=== PATIENT | female | born 1945 | race Caucasian/White ===

== ENCOUNTER → 2016-04-29 | Outpatient (CLI) | payer OTHER ==
[~2016-04-29] MED LIST: ASPEC325 PO; DLCS PR; DONE10TA12 PO; FERR-24 PO; LEVO100T PO; MVC20 PO; OXYC5TAB PO; POTA10TA PO; PRT40 PO; SNK PO; SODI1ENE16 PR; TRAZ50TA35 PO; TYL325X PO
[2016-04-29 17:21] LABS: ALT/SGPT 24 U/L (12-78); AST/SGOT 19 U/L (15-37); BLOOD UREA NITROGEN 20 mg/dl (7-18); BUN/CREATININE RATIO 16.6 (10-20); CALCIUM 9.4 mg/dl (8.5-10.1); CARBON DIOXIDE 30 mmol/L (21-32); CHLORIDE 100 mmol/L (98-107); GLUCOSE 153 mg/dl (70-99); POTASSIUM 4.2 mmol/L (3.5-5.1); SODIUM 137 mmol/L (136-145)
[2016-04-29 17:24] LABS: ALB/GLOB RATIO 1.1 (0.9-2); ALKALINE PHOSPHATASE 60 U/L (45-117); CHOLESTEROL 192 mg/dl (0-200); CHOLESTEROL/HDL RATIO 2.6; HDL CHOLESTEROL 75 mg/dl; LDL CHOLESTEROL CALCULATED 93 mg/dl; TRIGLYCERIDES 122 mg/dl (0-150); VERY LOW DENSITY LIPOPROT CALC 24 mg/dl
[2016-04-30 07:00] LABS: ESTIMATED AVERAGE GLUCOSE 174 mg/dl; HA1C FLAG Normal (Normal)
--- NOTE | 2016-05-04 09:29 | CODING QUERY MEDICAL NECESSITY ---
SUPPORTING DIAGNOSIS NEEDED A supporting diagnosis is required for the test/procedure performed on this patient in order for us to be reimbursed by the patient's insurance. Please provide a supporting diagnosis for the following test/procedure listed below next to the test name along with your signature. *If there is no additional diagnosis for this patient that would support the following test/procedure please document that below next to the test/procedure. Test(s)/Procedure(s) that require a supporting diagnosis: DOS 04/29 * Hba1c DIAGNOSIS: * Lipids DIAGNOSIS: Provider Signature: Date: Thank you Lelia Overton Health Information Management Once completed, please kindly fax back to [phone] For questions please call [phone]
== END | disposition home or self-care (01) ==
LOC: C.LABBC 15:02
PROVIDERS: ATTEND Internal Medicine
DX: R63.4 Abnormal weight loss (principal); E11.9 Type 2 diabetes mellitus without complications; E78.5 Hyperlipidemia, unspecified

== ENCOUNTER → 2017-01-20 | Outpatient (CLI) | payer OTHER ==
[2017-01-20 17:36] LABS: ALT/SGPT 25 U/L (12-78); BLOOD UREA NITROGEN 26 mg/dl (7-18); BUN/CREATININE RATIO 25.5 (10-20); CALCIUM 9.5 mg/dl (8.5-10.1); CARBON DIOXIDE 32 mmol/L (21-32); CHLORIDE 99 mmol/L (98-107); CREATININE 1.03 mg/dl (0.60-1.20); GLUCOSE 143 mg/dl (70-99); POTASSIUM 4.6 mmol/L (3.5-5.1); SODIUM 136 mmol/L (136-145)
[2017-01-20 17:47] LABS: ALB/GLOB RATIO 1.1 (0.9-2); ALKALINE PHOSPHATASE 70 U/L (45-117); AST/SGOT 25 U/L (15-37)
[2017-01-21 07:08] LABS: ESTIMATED AVERAGE GLUCOSE 157 mg/dl; HA1C FLAG Normal (Normal)
== END | disposition home or self-care (01) ==
LOC: C.LAB1850 16:32
PROVIDERS: ATTEND Internal Medicine
DX: E03.9 Hypothyroidism, unspecified (principal); E11.9 Type 2 diabetes mellitus without complications; I10 Essential (primary) hypertension

== ENCOUNTER → 2017-03-15 | Outpatient (CLI) | payer OTHER | END | disposition home or self-care (01) | LOC: C.LAB1850 15:28 | PROVIDERS: ATTEND Internal Medicine | DX: E03.9 Hypothyroidism, unspecified (principal) ==

== ENCOUNTER 2017-05-01 14:16 | Emergency (ER) | payer OTHER ==
[~2017-05-01] VITALS: Ht 167.6 cm; Wt 81.1 kg
[2017-05-01 14:20] VITALS: TEMP 37.3; Ht 167.6 cm; Wt 81.1 kg
[2017-05-01] MEDS ORDERED: CALC500C70 PO (15:12)
[2017-05-01] MEDS ORDERED: FERR-24 PO (15:12)
[2017-05-01] MEDS ORDERED: MULT-506 PO (15:12)
[2017-05-01] MEDS ORDERED: DICL1GEL12 TOP (15:12)
[2017-05-01] MEDS ORDERED: MEMA1CAP7 PO (15:12)
[2017-05-01] MEDS ORDERED: CYAN100020 PO (15:12)
[2017-05-01] MEDS ORDERED: METF500T5 PO (15:12)
[2017-05-01] MEDS ORDERED: ESOM20CA PO (15:12)
[2017-05-01] MEDS ORDERED: LEVO125T5 PO (15:12)
[2017-05-01] MEDS ORDERED: SERT50TA PO (15:12)
--- NOTE | 2017-05-01 15:18 | EMERGENCY ROOM VISIT NOTE ---
History Report prepared by Cherise: Martha Mcneal Under the Supervision of: Dr. Lexi Davila M.D. First contact with patient: 14:28 Chief Complaint: DIZZY Stated Complaint: DIZZY, LIGHT HEADED, BLEEDING ISSUES Nursing Triage Summary: pt to the ED with c/o feeling dizzy and c/o black stool pt takes iron and has a hx of bleeding from a unknown place and has had to have transfusions in the past. pt does not take blood thinners and no c/o pain History of Present Illness The patient is a 71 year old female who presents to the Emergency Room with complaints of intermittent dizziness starting 2 days ago. The patient's daughter states that she is unknown if this is when it actually started since she has Alzheimer. She reports that the patient has dark stools that she saw when she forgot to flush. The daughter notes that she has a history of GI bleeds and had to have 3 pints of blood transfusions about 2 years ago. The patient denies diarrhea, chest pain, vomiting, loss of appetite, use of blood thinners, and recent falls. She notes that her mother takes a heart medication and 60 mg of iron twice daily. Source of History: patient, family Onset: 2 days ago Position: other (global) Quality: other (dizzy) Timing: intermittent Associated Symptoms: No chest pain, No vomiting, No diarrhea Note: The patient complains of dark stools. The patient denies loss of appetite. Review of Systems See HPI for pertinent positives & negatives. A total of 10 systems reviewed and were otherwise negative. Past Medical & Surgical Medical Problems: (1) Alzheimer disease (2) Closed fracture of trochanteric section of femur (3) Finger fracture (4) Hip fracture Family History No pertinent family history Social History Smoking Status: Former Smoker Alcohol Use: none Marital Status: Housing Status: lives with family Occupation Status: retired Current/Historical Medications Scheduled Calcium/Vitamin D (Os-Bryan 500 Plus D), 1 TAB PO BID Cyanocobalamin (Vitamin B12), 1,000 MCG PO DAILY Diclofenac Sodium (Topical) (Voltaren 1% Top Gel), 2 GM TOP QID Donepezil Hydrochloride (Aricept), 10 MG PO DAILY Esomeprazole Magnesium (Nexium), 20 MG PO QAM Ferrous Sulfate (Fe Tabs), 325 MG PO BIDM Levothyroxine Sodium (Levothyroxine Sodium), 125 MCG PO QAM Lovastatin (Lovastatin), 20 MG PO DAILY Memantine Hcl (Namenda Xr), 28 MG PO DAILY Metformin Hcl Er (Glucophage Er), 500 MG PO DAILY Multivitamin (Multivitamin), 1 TAB PO DAILY Sertraline (Zoloft), 50 MG PO DAILY Trazodone Hcl (Trazodone), 50 MG PO HS Allergies Coded Allergies: Lisinopril (Verified Allergy, Intermediate, COUGH, 05/01/17) Atorvastatin (Verified Allergy, Unknown, MED LIST, 05/01/17) Simvastatin (Verified Allergy, Unknown, MED LIST, 05/01/17) Physical Exam Vital Signs Date Time Temp Pulse Resp B/P (MAP) Pulse Ox O2 Delivery O2 Flow Rate FiO2 05/01/17 17:57 53 17 174/95 96 Room Air 05/01/17 15:51 52 166/75 69 164/90 61 171/80 05/01/17 14:36 55 05/01/17 14:20 37.3 65 20 153/82 96 Room Air Physical Exam Vital signs reviewed. General: Well-appearing, elderly appearing, in no significant distress. HEENT: No scleral icterus, PERRLA, neck supple. Atraumatic. Cardiovascular: Regular rate and rhythm, no extra sounds. Pulmonary: Clear to auscultation bilaterally, normal work of breathing. Abdomen: Soft, nontender, nondistended, positive bowel sounds. Rectal: Guaiac negative. Normal external rectal mucosa. Musculoskeletal: Atraumatic, no peripheral edema. Neurologic: Patient awake alert and oriented x 3, full strength in all 4 extremities. Cranial nerves 2 through 12 grossly intact. Pleasantly confused. Skin: Warm, dry, no rash Medical Decision & Procedures ER Provider Diagnostic Interpretation: Radiology results as stated below per my review and radiologist interpretation: CHEST ONE VIEW PORTABLE HISTORY: dizzy, weak COMPARISON: Chest 04/06/2015. FINDINGS: The lungs are clear. Cardiac silhouette is normal in size. No pleural effusions. No pneumothorax. IMPRESSION: No acute process. Electronically signed by: Anoop Merlos M.D. 05/01/2017 3:34 PM Dictated Date/Time: 05/01/2017 3:33 PM Laboratory Results 05/01/17 16:32 Red Blood Count 4.77, Mean Corpuscular Volume 92.0, Mean Corpuscular Hemoglobin 31.4, Mean Corpuscular Hemoglobin Concent 34.2, Mean Platelet Volume 9.6, Neutrophils (%) (Auto) 63.1, Lymphocytes (%) (Auto) 28.0, Monocytes (%) (Auto) 6.2, Eosinophils (%) (Auto) 1.8, Basophils (%) (Auto) 0.7, Neutrophils # (Auto) 3.59, Lymphocytes # (Auto) 1.59, Monocytes # (Auto) 0.35, Eosinophils # (Auto) 0.10, Basophils # (Auto) 0.04 05/01/17 16:32 05/01/17 17:21 Test 05/01/17 00:00 05/01/17 16:32 05/01/17 17:21 Urine Color YELLOW Urine Appearance CLOUDY (CLEAR) Urine pH 7.5 (4.5-7.5) Urine Specific [place] 1.020 (1.000-1.030) Urine Protein NEG (NEG) Urine Glucose (UA) TRACE (NEG) Urine Ketones NEG (NEG) Urine Occult Blood NEG (NEG) Urine Nitrite NEG (NEG) Urine Bilirubin NEG (NEG) Urine Urobilinogen NEG (NEG) Urine Leukocyte Esterase MODERATE (NEG) Urine WBC (Auto) 5-10 /hpf (0-5) Urine RBC (Auto) 0-4 /hpf (0-4) Urine Hyaline Casts (Auto) 0 /lpf (0-5) Urine Epithelial Cells (Auto) >30 /lpf (0-5) Urine Bacteria (Auto) NEG (NEG) White Blood Count 5.68 K/uL (4.8-10.8) Red Blood Count 4.77 M/uL (4.2-5.4) Hemoglobin 15.0 g/dL (12.0-16.0) Hematocrit 43.9 % (37-47) Mean Corpuscular Volume 92.0 fL (80-100) Mean Corpuscular Hemoglobin 31.4 pg (25-34) Mean Corpuscular Hemoglobin Concent 34.2 g/dl (32-36) Platelet Count 222 K/uL (130-400) Mean Platelet Volume 9.6 fL (7.4-10.4) Neutrophils (%) (Auto) 63.1 % Lymphocytes (%) (Auto) 28.0 % Monocytes (%) (Auto) 6.2 % Eosinophils (%) (Auto) 1.8 % Basophils (%) (Auto) 0.7 % Neutrophils # (Auto) 3.59 K/uL (1.4-6.5) Lymphocytes # (Auto) 1.59 K/uL (1.2-3.4) Monocytes # (Auto) 0.35 K/uL (0.11-0.59) Eosinophils # (Auto) 0.10 K/uL (0-0.5) Basophils # (Auto) 0.04 K/uL (0-0.2) RDW Standard Deviation 44.5 fL (36.4-46.3) RDW Coefficient of Variation 13.3 % (11.5-14.5) Immature Granulocyte % (Auto) 0.2 % Immature Granulocyte # (Auto) 0.01 K/uL (0.00-0.02) Anion Gap 7.0 mmol/L (3-11) Est Creatinine Clear Calc Drug Dose 46.0 ml/min Estimated GFR () 53.5 Estimated GFR (Non- 46.2 BUN/Creatinine Ratio 14.4 (10-20) Calcium Level 9.6 mg/dl (8.5-10.1) Total Bilirubin 0.4 mg/dl (0.2-1) Alanine Aminotransferase (ALT/SGPT) 23 U/L (12-78) Alkaline Phosphatase 59 U/L (45-117) Total Protein 7.8 gm/dl (6.4-8.2) Albumin 3.7 gm/dl (3.4-5.0) Magnesium Level 2.1 mg/dl (1.8-2.4) Direct Bilirubin < 0.1 mg/dl (0-0.2) Aspartate Amino Transf (AST/SGOT) 24 U/L (15-37) Laboratory results per my review. Medications Administered Medications (Trade) Dose Ordered Sig/Hilary Route Start Time Stop Time Status Last Admin Dose Admin Haloperidol Lactate (Haldol Inj) 2.5 mg NOW STAT IV 05/01/17 17:10 05/01/17 17:11 DC 05/01/17 17:19 2.5 MG ECG Indication: other (dizziness) Rate (beats per minute): 51 Rhythm: sinus bradycardia Findings: nonspecific-ST abn (Anterior), no ectopy Comparison ECG Date: 04/19/2015 Change: no significant change Change: I interpreted the patient's EKG. ED Course 1501: Past medical records reviewed. The patient was evaluated in room B7. A complete history and physical examination was performed. 1710: Ordered Haldol Inj 2.5 mg IV. 1759: Upon reevaluation, the patient appeared to have improvement of her symptoms. I discussed findings with her and her daughter. They verbalized agreement of the treatment plan. The patient was discharged home. Medical Decision DDx: Etiologies such as benign positional vertigo, dehydration, hypovolemia, anemia, tumor, infection, hypoglycemia, electrolyte abnormalities, cardiac sources, intracerebral event, toxicologic, neurologic, as well as others were entertained. This pt was evaluated and appeared to be in no significant distress. Patient is guaiac negative from below. Laboratory work reveals a stable H&H. Vital signs have remained stable. EKG reveals sinus bradycardia with nonspecific ST changes this is unchanged from prior. The patient did become somewhat confused and agitated. She was given 2.5 mg of IV Haldol. Patient did discontinue her own IV line. I suspect the black stools are coming from the iron supplementation. At this time the patient is not orthostatic and her laboratory work is unrevealing. There is no evidence of UTI. Patient was discharged to the care of her daughter and will be evaluated by her physician this week in follow-up. They will return to the ER for worsening of symptoms or any medical concerns. Medication Reconcilliation Current Medication List: was personally reviewed by me Blood Pressure Screening Patient's blood pressure: Elevated blood pressure Blood pressure disposition: Elevated BP felt to be situational Impression Primary Impression: Dizziness Scribe Attestation The scribe's documentation has been prepared under my direction and personally reviewed by me in its entirety. I confirm that the note above accurately reflects all work, treatment, procedures, and medical decision making performed by me. Departure Information Dispostion Home / Self-Care Referrals No Doctor, Assigned (PCP) Forms HOME CARE DOCUMENTATION FORM, IMPORTANT VISIT INFORMATION Patient Instructions My [facility] Additional Instructions Diagnosis: Dizziness Please drink plenty of clear fluids. Continue your medications as prescribed. Follow-up with your physician this week for reevaluation. Return to the ER for worsening of symptoms or any medical concerns.
--- NOTE | 2017-05-01 15:36 | DIAGNOSTIC IMAGING REPORT ---
CHEST ONE VIEW PORTABLE HISTORY: dizzy, weak COMPARISON: Chest 04/06/2015. FINDINGS: The lungs are clear. Cardiac silhouette is normal in size. No pleural effusions. No pneumothorax. IMPRESSION: No acute process. Electronically signed by: Anoop Merlos M.D. 05/01/2017 3:34 PM Dictated Date/Time: 05/01/2017 3:33 PM
[2017-05-01 16:48] LABS: BASO % 0.7 %; BASO ABS # 0.04 K/uL (0-0.2); EOS % 1.8 %; HEMATOCRIT 43.9 % (37-47); IG# 0.01 K/uL (0.00-0.02); LYMPH ABS # 1.59 K/uL (1.2-3.4); MEAN CORPUSCULAR HEMOGLOBIN 31.4 pg (25-34); MEAN CORPUSCULAR HGB CONC 34.2 g/dl (32-36); MEAN PLATELET VOLUME 9.6 fL (7.4-10.4); MONO % 6.2 %; MONO ABS # 0.35 K/uL (0.11-0.59); NEUT % 63.1 %; NEUT ABS # 3.59 K/uL (1.4-6.5); PLATELET COUNT 222 K/uL (130-400); RED CELL DISTRIBUTION WIDTH CV 13.3 % (11.5-14.5); RED CELL DISTRIBUTION WIDTH SD 44.5 fL (36.4-46.3); WHITE BLOOD COUNT 5.68 K/uL (4.8-10.8)
[2017-05-01] MEDS ORDERED: HALOPERIDOL LACTATE 5 MG/ML 1 ML VIAL IV STA (17:10)
[2017-05-01 17:13] LABS: ALBUMIN 3.7 gm/dl (3.4-5.0); CALCIUM 9.6 mg/dl (8.5-10.1); CREATININE 1.17 mg/dl (0.60-1.20); TOTAL PROTEIN 7.8 gm/dl (6.4-8.2)
[2017-05-01 17:57] VITALS: BP 174/95; PULSE 53; O2SAT 96
[2017-05-01 18:06] LABS: POTASSIUM 3.7 mmol/L (3.5-5.1)
[2017-05-01 18:10] LABS: AST/SGOT 24 U/L (15-37)
== END 2017-05-01 18:17 | disposition home or self-care (01) ==
LOC: C.EDB 14:17
DX: R42 Dizziness and giddiness (principal); G30.9 Alzheimer's disease, unspecified; F02.80 Dementia in other diseases classified elsewhere, unspecified severity, without behavioral disturbance, psychotic disturbance, mood disturbance, and anxiety; Z87.891 Personal history of nicotine dependence; Z79.84 Long term (current) use of oral hypoglycemic drugs; Z79.899 Other long term (current) drug therapy

== ENCOUNTER 2019-01-27 17:13 | Inpatient (IN) ==
[2019-01-27] MEDS ORDERED: SODIUM CHLORIDE 0.9% 500 ML IV SCH (17:45)
--- NOTE | 2019-01-27 17:49 | XRay Report ---
XR chest 1V portable CLINICAL HISTORY: Weakness. Fall. COMPARISON STUDY: Chest radiograph May 01, 2017. FINDINGS: There is no pneumothorax or pleural effusion. No airspace opacities are present. Patient is mildly rotated. There is a suspected acute mildly displaced right first rib fracture. There is a pos sible nondisplaced posterior left first rib fracture. Note is made of an age indeterminate nondisplac ed fracture of the anterior right fourth rib. Cardiac size is normal. Mediastinal contours are normal . There is no evidence for pulmonary edema. IMPRESSION: 1. No pneumothorax. 2. Suspected acute mildly displaced right first rib fracture. Age indeterminate anterior right fourth rib fracture. Equivocal nondisplaced posterior left first rib fracture. Electronically signed by: Sheldon Stuart M.D. 01/27/2019 5:48 PM
--- NOTE | 2019-01-27 17:54 | Emergency Department Note ---
Entered by Jessica Stahl acting as a scribe for Saeed Pena DO History of Present Illness General Chief complaint: Fall Time Seen by Provider: 01/27/19 17:24 Source: family History of Present Illness Provider complaint: fall Onset (ago): week(s) 1 Location: right Relieved By: + none Exacerbated By: + none Associated symptoms: + loss of appetite and + other (+left arm, +left shoulder, +back pain) The patient is a 73 year old female who presents to the Emergency Room with complaints of fall that occurred last week. The patients family states that she feel out of bed last week and fell on her right side. They report that she was not evaluated then. They state that the patient has been recently complaining of left arm, left shoulder, and back pain. They state that they are unsure what happened. They mention that the patient has had a loss of appetite recently and has not been drinking a lot. They state that the patient has a history of dementia and osteoarthritis. Home Medications Home Medications Medication Instructions Recorded Confirmed Type acetaminophen 500 mg tablet 1,000 mg PO DAILY@1000,1500 tab 11/28/18 01/27/19 History levothyroxine 125 mcg tablet 125 mcg PO DAILY@1000 #30 tab 11/28/18 01/27/19 History calcium carbonate 600 mg (1,500 1 tab PO DAILY@1000 12/06/18 01/27/19 History mg)-vitamin D3 400 unit tablet cyanocobalamin (vit B-12) 1,000 1,000 mcg PO DAILY@1000 12/06/18 01/27/19 History mcg tablet ferrous sulfate 325 mg (65 mg 325 mg PO DAILY@1000 tab 12/06/18 01/27/19 History iron) tablet multivitamin tablet 1 tab PO DAILY@1000 12/06/18 01/27/19 History donepezil 10 mg PO DAILY@1000 01/27/19 01/27/19 History duloxetine 20 mg PO DAILY@1000 01/27/19 01/27/19 History esomeprazole magnesium 20 mg PO DAILY@1000 01/27/19 01/27/19 History lovastatin 20 mg PO DAILY@1000 01/27/19 01/27/19 History memantine 28 mg PO DAILY@1000 01/27/19 01/27/19 History metformin 500 mg PO DAILY@1000 01/27/19 01/27/19 History Allergies Allergy/AdvReac Type Severity Reaction Status Date / Time lisinopril Allergy Intermediate COUGH Verified 01/27/19 18:14 atorvastatin Allergy Unknown MED LIST Verified 01/27/19 18:14 simvastatin Allergy Unknown MED LIST Verified 01/27/19 18:14 Penicillins AdvReac Mild Verified 01/27/19 18:14 Past Med/Surg History Medical History Dementia (Chronic) Osteoarthritis (Chronic) Family History Daughter Depression Social History Feels Safe at Home: Yes Smoking Status: Former smoker Review of Systems See HPI for pertinent positives & negatives. and A total of 10 systems reviewed and were otherwise negative Physical Exam Vital Signs Vital Signs - 24 hr 01/27/19 17:17 01/27/19 17:22 01/27/19 17:54 Temperature 36.8 C Temperature Source Oral Sepsis Recent Fever Within 48 Hours No Sepsis Action Taken by Nursing No Action Required Pulse Rate 94 H 95 H 94 H Pulse Rate [Right Finger] Pulse Rate from SpO2 Sensor 96 H 93 H Respiratory Rate 20 20 20 Respiratory Effort / Characteristics Non-Labored Spontaneous Respiratory Depth Normal Respiratory Pattern Regular Blood Pressure 175/98 H 175/98 H Blood Pressure [Right Arm] Blood Pressure Mean 123 123 Blood Pressure Mean [Right Arm] Pulse Oximetry 95 95 96 Oxygen Delivery Method Room Air 01/27/19 18:00 01/27/19 18:30 01/27/19 18:37 Temperature Temperature Source Sepsis Recent Fever Within 48 Hours Sepsis Action Taken by Nursing Pulse Rate 98 H 88 86 Pulse Rate [Right Finger] Pulse Rate from SpO2 Sensor 84 Respiratory Rate 18 17 19 Respiratory Effort / Characteristics Respiratory Depth Respiratory Pattern Blood Pressure 182/90 H Blood Pressure [Right Arm] Blood Pressure Mean 120 Blood Pressure Mean [Right Arm] Pulse Oximetry 97 Oxygen Delivery Method 01/27/19 19:24 01/27/19 19:25 01/27/19 19:30 Temperature Temperature Source Sepsis Recent Fever Within 48 Hours Sepsis Action Taken by Nursing Pulse Rate 82 75 70 Pulse Rate [Right Finger] Pulse Rate from SpO2 Sensor 78 73 Respiratory Rate 13 20 19 Respiratory Effort / Characteristics Respiratory Depth Respiratory Pattern Blood Pressure 180/89 H 184/95 H Blood Pressure [Right Arm] Blood Pressure Mean 119 124 Blood Pressure Mean [Right Arm] Pulse Oximetry 97 98 Oxygen Delivery Method Room Air 01/27/19 19:45 01/27/19 20:00 01/27/19 20:01 Temperature Temperature Source Sepsis Recent Fever Within 48 Hours Sepsis Action Taken by Nursing Pulse Rate 69 80 Pulse Rate [Right Finger] 70 Pulse Rate from SpO2 Sensor 71 79 Respiratory Rate 22 18 19 Respiratory Effort / Characteristics Non-Labored Spontaneous Respiratory Depth Normal Respiratory Pattern Regular Blood Pressure 120/101 H Blood Pressure [Right Arm] 184/95 H Blood Pressure Mean 107 Blood Pressure Mean [Right Arm] 124 Pulse Oximetry 98 97 95 Oxygen Delivery Method Room Air 01/27/19 20:02 Temperature Temperature Source Sepsis Recent Fever Within 48 Hours Sepsis Action Taken by Nursing Pulse Rate 75 Pulse Rate [Right Finger] Pulse Rate from SpO2 Sensor 76 Respiratory Rate 16 Respiratory Effort / Characteristics Respiratory Depth Respiratory Pattern Blood Pressure Blood Pressure [Right Arm] Blood Pressure Mean Blood Pressure Mean [Right Arm] Pulse Oximetry 97 Oxygen Delivery Method CONSTITUTIONAL/VITAL SIGNS: Reviewed / noted above. GENERAL: Non-toxic in appearance. INTEGUMENTARY: Warm, dry, and [place]. HEAD: Normocephalic. EYES: without scleral icterus or trauma. ENT/OROPHARYNX: clear and moist. LYMPHADENOPATHY/NECK: Is supple without lymphadenopathy or meningismus. RESPIRATORY: Lungs clear and equal. CARDIOVASCULAR: Regular rate and rhythm. GI/ABDOMEN: Soft and nontender. No organomegaly or pulsatile mass. No rebound or guarding. Normal bowel sounds. EXTREMITIES: Warm and well perfused. BACK: No CVA tenderness. Tenderness to palpation of left posterior shoulder/spine area. NEUROLOGICAL: Intact without focal deficits. PSYCHIATRIC: normal affect. MUSCULOSKELETAL: Normally developed with good muscle tone. Course 1724: The patient was evaluated in room A12B, and a complete history and physical examination were performed. 2014: I reevaluated the patient and updated her family on her results. The family states that they do not feel that it will safe if the patient is discharged home. 2054: I reviewed the patient's case with Dr. Major- [facility] Hospitalist. She will evaluate the patient for further management. Administered Medications Discontinued Medications Sodium Chloride (Nss) 500 mls @ 999 mls/hr IV .Q31M VLADIMIR Stop: 01/27/19 18:15 Last Infusion: 01/27/19 19:05 Dose: 0 mls/hr Documented by: [id number] Admin: 01/27/19 18:31 Dose: 999 mls/hr Documented by: [id number] Medical Decision Making Differential Diagnosis Differential diagnosis: Etiologies such as fracture, dislocation, intra- abdominal, pneumothorax, intrathoracic , intracranial, neurologic, as well as other traumatic pathologies were entertained. Medical Records Attestation: I reviewed the patient's medical records. Home Medications Current Medication List: was personally reviewed by me Laboratory Data Attestation: I reviewed the patient's lab results. Result diagrams: 01/27/19 17:55 01/27/19 17:55 Lab Results 01/27/19 01/27/19 Range/Units 17:55 17:55 WBC 8.72 (4.8-10.8) K/uL RBC 5.05 (4.2-5.4) M/uL Hgb 16.0 (12.0-16.0) g/dL Hct 47.4 H (37-47) % MCV 93.9 (80-100) fL MCH 31.7 (25-34) pg MCHC 33.8 (32-36) g/dL RDW Std Deviation 44.7 (36.4-46.3) fL RDW Coeff of Jolanta 13.1 (11.5-14.5) % Plt Count 364 (130-400) K/uL MPV 10.2 (7.4-10.4) fL Immature Gran % (Auto) 0.3 % Neut % (Auto) 69.1 % Lymph % (Auto) 23.1 % [place] % (Auto) 6.3 % Eos % (Auto) 0.7 % Baso % (Auto) 0.5 % Immature Gran # (Auto) 0.03 H (0.00-0.02) K/uL Neut # (Auto) 6.03 (1.4-6.5) K/uL Lymph # (Auto) 2.01 (1.2-3.4) K/uL [place] # (Auto) 0.55 (0.11-0.59) K/uL Eos # (Auto) 0.06 (0-0.5) K/uL Baso # (Auto) 0.04 (0-0.2) K/uL Sodium 138 (136-145) mmol/L Potassium 3.7 (3.5-5.1) mmol/L Chloride 103 (98-107) mmol/L Carbon Dioxide 24 (21-32) mmol/L Anion Gap 11.0 (3-11) BUN 21 H (7-18) mg/dl Creatinine 0.88 (0.6-1.2) mg/dl Est Cr Clr Drug Dosing 51.7 ml/min Est GFR ( Amer) 74.5 Est GFR (Non-Af Amer) 64.3 BUN/Creatinine Ratio 23.8 H (10-20) Glucose 200 H (70-99) mg/dl Calcium 10.3 H (8.5-10.1) mg/dl Imaging Data Radiologist's Impression: Radiology results as stated below per my review and the radiologist's interpretation: XR chest 1V portable CLINICAL HISTORY: Weakness. Fall. COMPARISON STUDY: Chest radiograph May 01, 2017. FINDINGS: There is no pneumothorax or pleural effusion. No airspace opacities are present. Patient is mildly rotated. There is a suspected acute mildly displaced right first rib fracture. There is a possible nondisplaced posterior left first rib fracture. Note is made of an age indeterminate nondisplaced fracture of the anterior right fourth rib. Cardiac size is normal. Mediastinal contours are normal. There is no evidence for pulmonary edema. IMPRESSION: 1. No pneumothorax. 2. Suspected acute mildly displaced right first rib fracture. Age indeterminate anterior right fourth rib fracture. Equivocal nondisplaced posterior left first rib fracture. Electronically signed by: Sheldon Stuart M.D. 01/27/2019 5:[address] OF THE CERVICAL SPINE WITHOUT CONTRAST CLINICAL HISTORY: Pain after fall. COMPARISON STUDY: No previous studies for comparison. TECHNIQUE: Helical axial images of the cervical spine were obtained without IV contrast. Sagittal and coronal reconstructions were viewed. Automated exposure control was utilized for the study. A dose lowering technique was utilized adhering to the principles of ALARA. FINDINGS: There is craniocervical junction is intact. Note is made of an acute minimally displaced fracture of the left superior articulating facet of C7. There is no evidence for facet dislocation. Note is made of an acute nondisplaced posterior left first rib fracture which is comminuted. There is an acute mildly displaced posterior right first rib fracture. No pneumothorax is shown within the lung apices. There is mild multilevel degenerative disc disease and facet arthrosis within the cervical spine. Central canal and neural foramen are suboptimally assessed. Normal thoracic spine fractures are better depicted on the CT of the thoracic spine. IMPRESSION: 1. Acute minimally displaced fracture of the left superior articulating facet of C7. 2. Acute mildly displaced fracture of the posterior right first rib. Acute nondisplaced comminuted fracture the posterior left second rib. No pneumothorax within the lung apices. Electronically signed by: Sheldon Stuart M.D. 01/27/2019 7:[address] OF THE LUMBAR SPINE CLINICAL HISTORY: low back pain after fall COMPARISON STUDY: Lumbar spine MRI September 16, 2010. TECHNIQUE: Helical axial images of the lumbar spine were obtained. Sagittal and coronal reconstructions were viewed. Automated exposure control was uti lized for the study. A dose lowering technique was utilized adhering to the principles of ALARA. FINDINGS: For purposes of numbering on this exam, the L5-S1 disc space is assigned to axial image 295 of 268. An old L3 compression fracture is noted. There is a moderate L1 compression fracture with 60% loss of vertebral body height centrally. There is no retropulsion. There is mild prevertebral inf iltration. Note is made of a mild to moderate compression fracture of L4 with 30% loss of vertebral body height. This is age indeterminate. Central canal and neural foramen are suboptimally assessed by CT. There is moderate multilevel degenerative disc disease and facet arthrosis. The sacroiliac joints are intact. IMPRESSION: 1. Moderate L1 compression fracture which is likely subacute to acute. 2. Age indeterminate L4 compression fracture with 30% loss of vertebral body height. 3. Old L3 compression fracture. Electronically signed by: Sheldon Stuart M.D. 01/27/2019 7:[address] OF THE THORACIC SPINE CLINICAL HISTORY: Upper back pain after fall. COMPARISON STUDY: Chest CT July 30, 2014. TECHNIQUE: Helical axial images of the thoracic spine were obtained. Sagittal and coronal reconstructions were viewed. Automated exposure control was utilized for the study. A dose lowering technique was utilized adhering to the principles of ALARA. FINDINGS: Note is made of an acute nondisplaced comminuted fracture of the posterior left first rib. There is an acute mildly displaced posterior right first rib fracture. There is mild loss of height of the superior endplates of T1, T2 and T3 as well as T5. There is slight loss of height of the inferior endplate of T12. There is a moderate L1 compression fracture. There is mild pa ravertebral infiltration at this level. No pneumothorax is shown within visualized portions of the chest. A calcified left lower lobe granuloma is noted. There are calcified granulomas within the spleen and liver. Dense anterior osteophytosis of the thoracic spine is noted. IMPRESSION: 1. Mild compression fractures of T1, T2, T3, T5 and T12 which are age- indeterminate but likely acute to subacute. No retropulsion at these levels. Moderate L1 compression fracture which is likely acute to subacute as well. 2. Acute mildly displaced posterior right first rib fracture. Acute nondisplaced posterior left second rib fracture. Electronically signed by: Sheldon Stuart M.D. 01/27/2019 7:24 PM ECG Data Attestation: I personally reviewed and interpreted this ECG as follows: Indication: weakness Rate (beats per minute): 82 Rhythm: normal sinus Findings: no ST elevation and no ectopy Blood Pressure Blood Pressure Findings: Elevated blood pressure Blood Pressure Disposition: further management by hospitalist JOHNNY Guidry This is a 73-year-old female who presents to the ED with a chief complaint of left shoulder pain and decreased p.o. intake. The patient has been complaining of left shoulder pain since a fall a week ago. The family reports that she fell onto her right side but she is complaining of pain in the right posterior shoulder area. She also has had decreased p.o. intake for a couple of days. She has been drinking a little bit of fluids and eating very little. The patient has some dementia and therefore is difficult historian. She does report the pain in the left posterior shoulder in the area between the scapula and thoracic spine. This area is tender to palpation. She has full range of motion of her left upper extremity. The family also reports the patient has been complaining of low back pain. They were worried about this is related to her fall as well. She has not had any nausea or vomiting. No fevers or recent illness. Blood pressure is noted to be elevated. Her physical exam reveals the tenderness in the posterior left shoulder region in the area of the rhomboids muscle. No other areas of trauma. She does not appear to be in any distress and other than hard of hearing, tries to answer questions appropriately. Imaging studies of the CT scan of the cervical, thoracic and lumbar spine reveals an acute mildly displaced fracture of the left superior articulating facet of C7. There is also a moderate compression fracture of the L1 vertebrae that appears subacute. Questionable L4 fracture. There is also mild filipe tony fractures of T1, 2, 3, 5 and 12. There is also a right first rib fracture and a left second rib fracture. A twelve-lead EKG shows a normal sinus rhythm at a rate of 82. Chemistry panel was unremarkable. The BUN was 21. Glucose is 200. The patient and family was told the results. None of the issues here are surgical. I suggested treating with Tylenol. I also recommended using Ensure o r boost to help with her poor appetite. The family is concerned about the patient's ability to do well at home as she lives alone. I spoke with the hospitalist, who will see the patient for further evaluation and care. Case management spoke to the family and feel the patient might be adequate for a jail rehab placement. Impression & Plan Compression fracture of first lumbar vertebra, Compression fracture of thoracic vertebra, Closed rib fracture, Acute dehydration, Anorexia Discharge Plan Visit Data Chief Complaint: Fall ED Provider: Saeed Pena Discharge Problem: Compression fracture of first lumbar vertebra, Compression fracture of thoracic vertebra, Closed rib fracture, Acute dehydration, Anorexia Patient Disposition: Being Evaluated by Hospitalist Forms Stand Alone Forms: My [facility] [employer] Prescriptions Prescriptions: No Action levothyroxine 125 mcg tablet 125 mcg PO DAILY@1000 Qty: 30 RF: 0 acetaminophen 500 mg tablet 1,000 mg PO DAILY@1000,1500 RF: 0 calcium carbonate-vitamin D3 600 mg(1,500mg) -400 unit tablet 1 tab PO DAILY@1000 RF: 0 ferrous sulfate 325 mg (65 mg iron) tablet 325 mg PO DAILY@1000 RF: 0 multivitamin tablet 1 tab PO DAILY@1000 RF: 0 cyanocobalamin (vitamin B-12) 1,000 mcg tablet 1,000 mcg PO DAILY@1000 RF: 0 metformin 500 mg tablet 500 mg PO DAILY@1000 RF: 0 donepezil 10 mg tablet 10 mg PO DAILY@1000 RF: 0 lovastatin 20 mg tablet 20 mg PO DAILY@1000 RF: 0 esomeprazole magnesium 20 mg capsule,delayed release(DR/EC) 20 mg PO DAILY@1000 RF: 0 duloxetine 20 mg capsule,delayed release(DR/EC) 20 mg PO DAILY@1000 RF: 0 memantine 28 mg capsule,sprinkle,ER 24hr 28 mg PO DAILY@1000 RF: 0 Referrals Referrals: Jonathan Metzger MD [Primary Care Provider] - Discharge Problem: Compression fracture of first lumbar vertebra Qualifiers: Encounter type: initial encounter Qualified Code(s): S32.010A - Wedge compression fracture of first lumbar vertebra, initial encounter for closed fracture Compression fracture of thoracic vertebra Qualifiers: Encounter type: initial encounter Thoracic vertebra fracture level: unspecified thoracic vertebra Qualified Code(s): S22.000A - Wedge compression fracture of unspecified thoracic vertebra, initial encounter for closed fracture Closed rib fracture Qualifiers: Encounter type: initial encounter Rib fracture type: multiple ribs Laterality: bilateral Qualified Code(s): S22.43XA - Multiple fractures of ribs, bilateral, initial encounter for closed fracture The scribe's documentation has been prepared under my direction and personally reviewed by me in its entirety. I confirm that the note above accurately reflects all work, treatment, procedures, and medical decision making performed by me.
[2019-01-27 18:12] LABS: Basophils # (auto) 0.04 K/uL (0-0.2); Basophils % (auto) 0.5 %; Eosinophils # (auto) 0.06 K/uL (0-0.5); Eosinophils % (auto) 0.7 %; Hematocrit (blood only) 47.4 % (37-47); Immature Granulocytes # (auto) 0.03 K/uL (0.00-0.02); Immature Granulocytes % (auto) 0.3 %; Lymphocytes # (auto) 2.01 K/uL (1.2-3.4); Lymphocytes % (auto) 23.1 %; Mean Corpuscular Hemoglobin 31.7 pg (25-34); Mean Corpuscular Hgb Conc 33.8 g/dL (32-36); Mean Corpuscular Volume 93.9 fL (80-100); Mean Platelet Volume 10.2 fL (7.4-10.4); Monocytes # (auto) 0.55 K/uL (0.11-0.59); Monocytes % (auto) 6.3 %; Neutrophils # (auto) 6.03 K/uL (1.4-6.5); Neutrophils % (auto) 69.1 %; Platelet Count 364 K/uL (130-400); RDW Coefficient of Variation 13.1 % (11.5-14.5); RDW Standard Deviation 44.7 fL (36.4-46.3); Red Blood Count 5.05 M/uL (4.2-5.4); White Blood Count 8.72 K/uL (4.8-10.8)
[2019-01-27 18:35] LABS: BUN Creatinine Ratio 23.8 (10-20); Calcium 10.3 mg/dl (8.5-10.1); Creatinine Clr Calc Pharmacy 51.7 ml/min; Est GFR (African American) 74.5; Est GFR (Non-African American) 64.3; Potassium 3.7 mmol/L (3.5-5.1)
--- NOTE | 2019-01-27 19:17 | CT Scan Report ---
CT OF THE CERVICAL SPINE WITHOUT CONTRAST CLINICAL HISTORY: Pain after fall. COMPARISON STUDY: No previous studies for comparison. TECHNIQUE: Helical axial images of the cervical spine were obtained without IV contrast. Sagittal a nd coronal reconstructions were viewed. Automated exposure control was utilized for the study. A do se lowering technique was utilized adhering to the principles of ALARA. FINDINGS: There is craniocervical junction is intact. Note is made of an acute minimally displaced fr acture of the left superior articulating facet of C7. There is no evidence for facet dislocation. Not e is made of an acute nondisplaced posterior left first rib fracture which is comminuted. There is an acute mildly displaced posterior right first rib fracture. No pneumothorax is shown within the lung apices. There is mild multilevel degenerative disc disease and facet arthrosis within the cervical sp ine. Central canal and neural foramen are suboptimally assessed. Normal thoracic spine fractures are better depicted on the CT of the thoracic spine. IMPRESSION: 1. Acute minimally displaced fracture of the left superior articulating facet of C7. 2. Acute mildly displaced fracture of the posterior right first rib. Acute nondisplaced comminuted fr acture the posterior left second rib. No pneumothorax within the lung apices. Electronically signed by: Sheldon Stuart M.D. 01/27/2019 7:15 PM
--- NOTE | 2019-01-27 19:25 | CT Scan Report ---
Thoracic CT OF THE THORACIC SPINE CLINICAL HISTORY: Upper back pain after fall. COMPARISON STUDY: Chest CT July 30, 2014. TECHNIQUE: Helical axial images of the thoracic spine were obtained. Sagittal and coronal reconstru ctions were viewed. Automated exposure control was utilized for the study. A dose lowering techniqu e was utilized adhering to the principles of ALARA. FINDINGS: Note is made of an acute nondisplaced comminuted fracture of the posterior left first rib. There is an acute mildly displaced posterior right first rib fracture. There is mild loss of height o f the superior endplates of T1, T2 and T3 as well as T5. There is slight loss of height of the inferi or endplate of T12. There is a moderate L1 compression fracture. There is mild paravertebral infiltra tion at this level. No pneumothorax is shown within visualized portions of the chest. A calcified lef t lower lobe granuloma is noted. There are calcified granulomas within the spleen and liver. Dense an terior osteophytosis of the thoracic spine is noted. IMPRESSION: 1. Mild compression fractures of T1, T2, T3, T5 and T12 which are age-indeterminate but likely acute to subacute. No retropulsion at these levels. Moderate L1 compression fracture which is likely acute to subacute as well. 2. Acute mildly displaced posterior right first rib fracture. Acute nondisplaced posterior left secon d rib fracture. Electronically signed by: Sheldon Stuart M.D. 01/27/2019 7:24 PM
--- NOTE | 2019-01-27 19:31 | CT Scan Report ---
CT OF THE LUMBAR SPINE CLINICAL HISTORY: low back pain after fall COMPARISON STUDY: Lumbar spine MRI September 16, 2010. TECHNIQUE: Helical axial images of the lumbar spine were obtained. Sagittal and coronal reconstruct ions were viewed. Automated exposure control was utilized for the study. A dose lowering technique was utilized adhering to the principles of ALARA. FINDINGS: For purposes of numbering on this exam, the L5-S1 disc space is assigned to axial image 295 of 268. An old L3 compression fracture is noted. There is a moderate L1 compression fracture with 60 % loss of vertebral body height centrally. There is no retropulsion. There is mild prevertebral infil tration. Note is made of a mild to moderate compression fracture of L4 with 30% loss of vertebral bod y height. This is age indeterminate. Central canal and neural foramen are suboptimally assessed by CT . There is moderate multilevel degenerative disc disease and facet arthrosis. The sacroiliac joints a re intact. IMPRESSION: 1. Moderate L1 compression fracture which is likely subacute to acute. 2. Age indeterminate L4 compression fracture with 30% loss of vertebral body height. 3. Old L3 compression fracture. Electronically signed by: Sheldon Stuart M.D. 01/27/2019 7:30 PM
--- NOTE | 2019-01-27 21:48 | History & Physical Report ---
Date of Service January 27, 2019 Assessment & Plan (1) Compression fracture of first lumbar vertebra: S/p fall with compression fracture. +Pain. Neurologically intact -Tylenol -Lidoderm -Heating pad -Continue Duloxetine -Morphie PRN Present on Admission?: Yes (2) Fracture of C7 vertebra, closed: Neurologically intact -Ortho consult -Pain control -Continue Duloxetine -Morphine PRN Present on Admission?: Yes (3) Compression fracture of thoracic vertebra: Patient with mild compression fractures of T1, T2, T3, T5 and T12 - likely acute to subacute. No retropulsion at these levels. -Pain control -Orhto consult Present on Admission?: Yes (4) Closed rib fracture: Acute mildly displaced posterior first rib fracture on the left and first rib on right. No pneumothorax. Patient is in considerable discomfort in upper left back. -Pain control with Tylenol 1gm po TID, Heat, Cymbalta Present on Admission?: Yes (5) Anorexia: Patient with advanced dementia, poor appetite over the last few days. No overt evidence of infection. Possibly secondary to pain from fall and multiple fractures -Pain control -Encourage PO intake -Soft/bite sized meals. Patient with no dentures in place Present on Admission?: Yes (6) Type 2 diabetes mellitus: Blood sugar = 200 -Lantus 5u BID, ISS -Check AIC -Hold Metformin Present on Admission?: Yes (7) Hypertension: Blood pressure mildly elevated at present -Pain control -Continue to monitor. Patient not on anti-hypertensive medications at present Present on Admission?: Yes (8) Hyperlipidemia: Chronic. Patient recently taken off Lovastatin due to pill intolerance. Given patient's age and functional status agree with limiting pill burden in effort to maximize patient comfort Present on Admission?: Yes (9) Alzheimer disease: Chronic. Patient with functional decline. Unable to care for herself at home. She has a HOSE C[employer] daily from 6AM - 3PM as well as strong family support. However, given patient's recent fall and immobility she is difficult to be safely managed at home -Continue Aricept -Continue Memantine -Delirium prevention strategies with frequent orientation, sleep preservation and ambulation with assistance Present on Admission?: Yes (10) Hypothyroid: Chronic. Stable -Continue Synthroid F/E/N -LR at 80mL/hr x 1 liter, monitor electrolytes and replete as needed, CC diet as tolerated Ppx - Low risk for DVT. Continue Nexium Code - DNR/DNI Dispo - Admit to medical floor Present on Admission?: Yes History of Present Illness Chief Complaint: weakness, failure to thrive Primary Care Provider: Jonathan Metzger MD Jordy Avelar is a 73yo C female with history of HTN, HLP, DM, Dementia - currently living alone. Baseline functional status - patient requires assistance with ADLs She ambulates with assistance. She has HOSE C[employer]ER that comes in M-F from 6AM - 3PM but is unable to lift > 15#s, she has strong family support on the weekends. Fell last weekend getting out of bed. Found by family and helped back into bed. Since then she has been complaining of worsening low back pain as well as left shoulder pain. She has not been getting out of bed for the last week, poor po intake, sleepy. Has been having bowel accidents due to inability to get to the restroom in time from pain. No additional complaints at this time ER Course: NSS Allergies Allergy/AdvReac Type Severity Reaction Status Date / Time lisinopril Allergy Intermediate COUGH Verified 01/27/19 18:14 atorvastatin Allergy Unknown MED LIST Verified 01/27/19 18:14 simvastatin Allergy Unknown MED LIST Verified 01/27/19 18:14 Penicillins AdvReac Mild Verified 01/27/19 18:14 Home Medications Home Medications Medication Instructions Recorded Confirmed Type acetaminophen 500 mg tablet 1,000 mg PO DAILY@1000,1500 tab 11/28/18 01/27/19 History levothyroxine 125 mcg tablet 125 mcg PO DAILY@1000 #30 tab 11/28/18 01/27/19 History calcium carbonate 600 mg (1,500 1 tab PO DAILY@1000 12/06/18 01/27/19 History mg)-vitamin D3 400 unit tablet cyanocobalamin (vit B-12) 1,000 1,000 mcg PO DAILY@1000 12/06/18 01/27/19 History mcg tablet ferrous sulfate 325 mg (65 mg 325 mg PO DAILY@1000 tab 12/06/18 01/27/19 History iron) tablet multivitamin tablet 1 tab PO DAILY@1000 12/06/18 01/27/19 History donepezil 10 mg PO DAILY@1000 01/27/19 01/27/19 History duloxetine 20 mg PO DAILY@1000 01/27/19 01/27/19 History esomeprazole magnesium 20 mg PO DAILY@1000 01/27/19 01/27/19 History lovastatin 20 mg PO DAILY@1000 01/27/19 01/27/19 History memantine 28 mg PO DAILY@1000 01/27/19 01/27/19 History metformin 500 mg PO DAILY@1000 01/27/19 01/27/19 History Past Med/Surg History Medical History Dementia (Chronic) Osteoarthritis (Chronic) Diabetes Dyslipidemia History of fracture of lower extremity Hypertension Hypothyroid Family History Daughter Depression Social History Feels Safe at Home: Yes Smoking Status: Former smoker Hx Alcohol Use: No Hx Substance Use: No Review of Systems Review of Systems: All systems reviewed & are unremarkable except as noted in HPI & below Denies fevers, chills, chest pain, palpitations, cough, SOB, abd ominal pain, nausea, vomiting, constipation Loose stools at baseline +Left shoulder pain +Low back pain No dysuria, frequency, urgency Physical Exam Physical Exam: General: patient resting comfortably, NAD, thin, poorly kempt, oriented to self only Skin: warm, dry, intact, no rashes or lesions HEENT: NC/AT, PERRL, EOMI, anicteric sclera, conjunctiva without injection, external ear normal to inspection and nontender, nares patent, dry mucus membranes, edentulous, small amount of thrush on tongue, neck supple, trachea midline, no LAD, no thyromegaly, no JVD Heart: +S1/S2, regular, no m/r/g Lungs: equal air entry bilaterally, no rales/rhonchi/wheezes Abd: +BS, soft, NT/ND, no masses/organomegaly/ascites Ext: warm, 2+ pulses in UE/LE bilaterally, no clubbing/cyanosis or edema Neuro: nonfocal, patient AA&O to self, speech intact, no facial droop, moving all extremities on command with equal strength 5/5 Results & Data Vital Signs (Past 12 Hours) Vital Signs Temp Pulse Pulse Resp BP BP Pulse Ox 01/27/19 21:37 80 20 191/94 H 95 01/27/19 20:02 75 16 97 01/27/19 20:01 80 19 120/101 H 95 01/27/19 20:00 69 18 97 01/27/19 19:45 70 22 184/95 H 98 01/27/19 19:30 70 19 184/95 H 98 01/27/19 19:25 75 20 180/89 H 97 01/27/19 19:24 82 13 01/27/19 18:37 86 19 182/90 H 97 01/27/19 18:30 88 17 01/27/19 18:00 98 H 18 01/27/19 17:54 94 H 20 96 01/27/19 17:22 36.8 C 95 H 20 175/98 H 95 01/27/19 17:17 94 H 20 175/98 H [address] OF THE THORACIC SPINE CLINICAL HISTORY: Upper back pain after fall. COMPARISON STUDY: Chest CT July 30, 2014. TECHNIQUE: Helical axial images of the thoracic spine were obtained. Sagittal and coronal reconstructions were viewed. Automated exposure control was utilized for the study. A dose lowering technique was utilized adhering to the principles of ALARA. FINDINGS: Note is made of an acute nondisplaced comminuted fracture of the posterior left first rib. There is an acute mildly displaced posterior right first rib fracture. There is mild loss of height of the superior endplates of T1, T2 and T3 as well as T5. There is slight loss of height of the inferior endplate of T12. There is a moderate L1 compression fracture. There is mild paravertebral infiltration at this level. No pneumothorax is shown within visualized portions of the chest. A calcified left lower lobe granuloma is noted. There are calcified granulomas within the spleen and liver. Dense anterior osteophytosis of the thoracic spine is noted. IMPRESSION: 1. Mild compression fractures of T1, T2, T3, T5 and T12 which are age- indeterminate but likely acute to subacute. No retropulsion at these levels. Moderate L1 compression fracture which is likely acute to subacute as well. 2. Acute mildly displaced posterior right first rib fracture. Acute nondisplaced posterior left second rib fracture. Electronically signed by: Sheldon Stuart M.D. 01/27/2019 7:24 PM Dictated: 01/27/191903 Transcribed: 01/27/191905 CT OF THE LUMBAR SPINE CLINICAL HISTORY: low back pain after fall COMPARISON STUDY: Lumbar spine MRI September 16, 2010. TECHNIQUE: Helical axial images of the lumbar spine were obtained. Sagittal and coronal reconstructions were viewed. Automated exposure control was utilized for the study. A dose lowering technique was utilized adhering to the principles of ALARA. FINDINGS: For purposes of numbering on this exam, the L5-S1 disc space is assigned to axial image 295 of 268. An old L3 compression fracture is noted. There is a moderate L1 compression fracture with 60% loss of vertebral body height centrally. There is no retropulsion. There is mild prevertebral infiltration. Note is made of a mild to moderate compression fracture of L4 with 30% loss of vertebral body height. This is age indeterminate. Central canal and neural foramen are suboptimally assessed by CT. There is moderate multilevel degenerative disc disease and facet arthrosis. The sacroiliac joints are intact. IMPRESSION: 1. Moderate L1 compression fracture which is likely subacute to acute. 2. Age indeterminate L4 compression fracture with 30% loss of vertebral body height. 3. Old L3 compression fracture. Electronically signed by: Sheldon Stuart M.D. 01/27/2019 7:30 PM Dictated: 01/27/191923 Transcribed: 10/26/19 1924 ------ XR chest 1V portable CLINICAL HISTORY: Weakness. Fall. COMPARISON STUDY: Chest radiograph May 01, 2017. FINDINGS: There is no pneumothorax or pleural effusion. No airspace opacities are present. Patient is mildly rotated. There is a suspected acute mildly displaced right first rib fracture. There is a possible nondisplaced posterior left first rib fracture. Note is made of an age indeterminate nondisplaced fracture of the anterior right fourth rib. Cardiac size is normal. Mediastinal contours are normal. There is no evidence for pulmonary edema. IMPRESSION: 1. No pneumothorax. 2. Suspected acute mildly displaced right first rib fracture. Age indeterminate anterior right fourth rib fracture. Equivocal nondisplaced posterior left first rib fracture. Electronically signed by: Sheldon Stuart M.D. 01/27/2019 5:[address] OF THE CERVICAL SPINE WITHOUT CONTRAST CLINICAL HISTORY: Pain after fall. COMPARISON STUDY: No previous studies for comparison. TECHNIQUE: Helical axial images of the cervical spine were obtained without IV contrast. Sagittal and coronal reconstructions were viewed. Automated exposure control was utilized for the study. A dose lowering technique was utilized adhering to the principles of ALARA. FINDINGS: There is craniocervical junction is intact. Note is made of an acute minimally displaced fracture of the left superior articulating facet of C7. There is no evidence for facet dislocation. Note is made of an acute nondisplaced posterior left first rib fracture which is comminuted. There is an acute mildly displaced posterior right first rib fracture. No pneumothorax is shown within the lung apices. There is mild multilevel degenerative disc disease and facet arthrosis within the cervical spine. Central canal and neural foramen are suboptimally assessed. Normal thoracic spine fractures are better depicted on the CT of the thoracic spine. IMPRESSION: 1. Acute minimally displaced fracture of the left superior articulating facet of C7. 2. Acute mildly displaced fracture of the posterior right first rib. Acute nondisplaced comminuted fracture the posterior left second rib. No pneumothorax within the lung apices. Electronically signed by: Sheldon Stuart M.D. 01/27/2019 7:15 PM Dictated: 01/27/191906 Transcribed: 01/27/191906- ECG Additional Comments: The study shows NSR at 82, normal axis, BMv=[id number] otherwise normal study Code Status & VTE Plan Code Status DNR VTE Prophylaxis Plan VTE Prophylaxis will be ordered: No PG Care Time/CCT Total # of Minutes Spent Total Time Spent with Patient: Total time spent is greater than 50% in coordination of care (as documented) at patient's floor/unit and/or counseling patient: (1) Compression fracture of first lumbar vertebra Encounter type: initial encounter Qualified Code(s): S32.010A - Wedge compression fracture of first lumbar vertebra, initial encounter for closed fracture (2) Closed rib fracture Encounter type: initial encounter Laterality: bilateral Rib fracture type: multiple ribs Qualified Code(s): S22.43XA - Multiple fractures of ribs, bilateral, initial encounter for closed fracture (3) Type 2 diabetes mellitus Diabetes mellitus complication status: without complication Diabetes mellitus correction insulin use: without correction use Qualified Code(s): E11.9 - Type 2 diabetes mellitus without complications (4) Alzheimer disease Alzheimer's disease onset: late-onset Dementia behavioral disturbance: without behavioral disturbance Qualified Code(s): G30.1 - Alzheimer's disease with late onset; F02.80 - Dementia in other diseases classified elsewhere without behavioral disturbance (5) Hyperlipidemia Hyperlipidemia type: unspecified Qualified Code(s): E78.5 - Hyperlipidemia, unspecified (6) Hypothyroid Hypothyroidism type: unspecified Qualified Code(s): E03.9 - Hypothyroidism, unspecified (7) Compression fracture of thoracic vertebra Encounter type: initial encounter Thoracic vertebra fracture level: unspecified thoracic vertebra Qualified Code(s): S22.000A - Wedge compression fracture of unspecified thoracic vertebra, initial encounter for closed fracture (8) Hypertension Hypertension type: essential hypertension Qualified Code(s): I10 - Essential (primary) hypertension
[2019-01-27] MEDS ORDERED: LACTATED RINGER'S 1,000 ML IV SCH (22:38)
[2019-01-27] MEDS ORDERED: GLUCOSE 40% GEL 15 GM TUBE PO PRN (22:38)
[2019-01-27] MEDS ORDERED: GLUCAGON FOR INJ 1 MG VIAL SQ PRN (22:38)
[2019-01-27] MEDS ORDERED: DEXTROSE 50% 50 ML SYRINGE IV PRN (22:38)
[2019-01-27] MEDS ORDERED: CARBOHYDRATES FOR HYPOGLYCEMIA PO PRN (22:38)
[2019-01-27] MEDS ORDERED: GLUCOSE 10 TABS/TUBE PO PRN (22:38)
--- NOTE | 2019-01-27 22:57 | XRay Report ---
XR shoulder LT min 2V routine CLINICAL HISTORY: pain COMPARISON: None FINDINGS: Alignment of the left shoulder is anatomic. No acute fracture is identified. There is mode rate osteoarthritis of the left acromioclavicular joint. Note is again made of an acute nondisplaced posterior left first rib fracture. IMPRESSION: 1. No acute fracture or dislocation within the left shoulder. 2. Acute nondisplaced posterior left first rib fracture. Electronically signed by: Sheldon Stuart M.D. 01/27/2019 10:56 PM
[2019-01-27 23:35] LABS: Magnesium 1.9 mg/dl (1.8-2.4)
[2019-01-27] MEDS: INSULIN GLARGINE SOLOSTAR 100 UNITS/ML 3 ML PEN SC SCH (23:37)
[2019-01-27] MEDS: LIDOCAINE 5% 1 PATCH TD SCH (23:37)
[2019-01-27] MEDS: INSULIN ASPART 100 UNITS/ML 3 ML PEN SC SCH (23:38)
[2019-01-28 06:45] LABS: Basophils # (auto) 0.07 K/uL (0-0.2); Basophils % (auto) 0.8 %; Eosinophils # (auto) 0.14 K/uL (0-0.5); Eosinophils % (auto) 1.6 %; Hemoglobin 14.8 g/dL (12.0-16.0); Immature Granulocytes # (auto) 0.01 K/uL (0.00-0.02); Immature Granulocytes % (auto) 0.1 %; Lymphocytes # (auto) 2.45 K/uL (1.2-3.4); Lymphocytes % (auto) 27.6 %; Mean Corpuscular Hgb Conc 34.4 g/dL (32-36); Mean Corpuscular Volume 92.9 fL (80-100); Mean Platelet Volume 9.7 fL (7.4-10.4); Monocytes # (auto) 0.61 K/uL (0.11-0.59); Monocytes % (auto) 6.9 %; Neutrophils # (auto) 5.61 K/uL (1.4-6.5); Platelet Count 316 K/uL (130-400); RDW Coefficient of Variation 12.9 % (11.5-14.5); Red Blood Count 4.63 M/uL (4.2-5.4); White Blood Count 8.89 K/uL (4.8-10.8)
[2019-01-28 07:23] LABS: BUN Creatinine Ratio 20.4 (10-20); Calcium 9.7 mg/dl (8.5-10.1); Creatinine Clr Calc Pharmacy 54.8 ml/min; Est GFR (African American) 79.9; Potassium 3.4 mmol/L (3.5-5.1)
[2019-01-28] MEDS ORDERED: POTASSIUM CHLORIDE 20 MEQ/15 ML UDC PO STA (08:43)
[2019-01-28] MEDS ORDERED: KETOROLAC TROMETHAMINE 15 MG/ML VIAL IV PRN (08:47)
[2019-01-28] MEDS: INSULIN GLARGINE SOLOSTAR 100 UNITS/ML 3 ML PEN SC SCH ×2 (08:53→20:38)
[2019-01-28] MEDS: ACETAMINOPHEN 500 MG TAB PO SCH ×3 (08:54→20:39)
[2019-01-28] MEDS: INSULIN ASPART 100 UNITS/ML 3 ML PEN SC SCH ×4 (09:01→20:38)
[2019-01-28] MEDS: DULOXETINE HCL 20 MG CAP PO SCH (09:04)
[2019-01-28] MEDS: PANTOprazole 40 MG TAB PO SCH (09:04)
[2019-01-28] MEDS: LEVOTHYROXINE SODIUM 125 MCG TABLET PO SCH (09:04)
[2019-01-28] MEDS: CYANOCOBALAMIN 500 MCG TABLET (VITAMIN B-12) PO SCH (09:04)
[2019-01-28] MEDS: DONEPEZIL HCL 10 MG TAB PO SCH (09:04)
[2019-01-28] MEDS: FERROUS SULFATE 325 MG TAB PO SCH (09:04)
--- NOTE | 2019-01-28 10:40 | Orthopedic Consultation ---
Date of Consultation January 28, 2019 Assessment & Plan (1) Compression fracture of first lumbar vertebra: This time I would like to order TLSO. This to be worn only when out of bed. Hopefully this will provide some additional support so she may begin ambulation with and less discomfort. Do not see any indication for surgical intervention at this time. Present on Admission?: Yes History of Present Illness Reason for Consultation: Back pain Attending Physician: Amparo Britt MD History of Present Illness Very pleasant 73-year-old female that complaining some back pain. Apparently she was found after fall at home consistent back pain ultimately brought to the emergency room and admitted. He does have evidence of an L1 compression fracture. During our discussion today she is states she has some discomfort. She does have dementia and is difficult to obtain an accurate history. She denies any leg pain. She has been up with a walker. Allergies Allergy/AdvReac Type Severity Reaction Status Date / Time lisinopril Allergy Intermediate COUGH Verified 01/27/19 18:14 atorvastatin Allergy Unknown MED LIST Verified 01/27/19 18:14 simvastatin Allergy Unknown MED LIST Verified 01/27/19 18:14 Penicillins AdvReac Mild Verified 01/27/19 18:14 Home Medications Home Medications Medication Instructions Recorded Confirmed Type acetaminophen 500 mg tablet 1,000 mg PO DAILY@1000,1500 tab 11/28/18 01/27/19 History levothyroxine 125 mcg tablet 125 mcg PO DAILY@1000 #30 tab 11/28/18 01/27/19 History calcium carbonate 600 mg (1,500 1 tab PO DAILY@1000 12/06/18 01/27/19 History mg)-vitamin D3 400 unit tablet cyanocobalamin (vit B-12) 1,000 1,000 mcg PO DAILY@1000 12/06/18 01/27/19 History mcg tablet ferrous sulfate 325 mg (65 mg 325 mg PO DAILY@1000 tab 12/06/18 01/27/19 History iron) tablet multivitamin tablet 1 tab PO DAILY@1000 12/06/18 01/27/19 History donepezil 10 mg PO DAILY@1000 01/27/19 01/27/19 History duloxetine 20 mg PO DAILY@1000 01/27/19 01/27/19 History esomeprazole magnesium 20 mg PO DAILY@1000 01/27/19 01/27/19 History lovastatin 20 mg PO DAILY@1000 01/27/19 01/27/19 History memantine 28 mg PO DAILY@1000 01/27/19 01/27/19 History metformin 500 mg PO DAILY@1000 01/27/19 01/27/19 History Patient History Medical History Dementia (Chronic) Osteoarthritis (Chronic) Diabetes Dyslipidemia History of fracture of lower extremity Hypertension Hypothyroid Family History Daughter Depression Social History Preferred Language: Georgian Communication Ability: Effective Tube Maker Required: No Beliefs That Will Affect Care: None Current Living Situation: Alone Feels Safe at Home: Yes Smoking Status: Never smoker Hx Alcohol Use: No Hx Substance Use: No Physical Exam Physical Exam: Patient is neurologically intact lower extremities. Does appear comfortable in bed. Results & Data Vital Signs (Past 12 Hours) Vital Signs Temp Pulse Resp BP Pulse Ox 01/28/19 07:53 36.6 C 83 20 158/82 H 95 01/27/19 23:58 162/89 H 01/27/19 22:44 36.9 C 78 16 198/104 H 95 (1) Compression fracture of first lumbar vertebra Encounter type: initial encounter Qualified Code(s): S32.010A - Wedge compression fracture of first lumbar vertebra, initial encounter for closed fracture
--- NOTE | 2019-01-28 10:44 | Orthopedic Progress Note ---
Date of Service January 28, 2019 Assessment & Plan (1) Fracture of C7 vertebra, closed: This time will order a [place] J collar to be worn at all times when out of bed may be removed for eating. Present on Admission?: Yes Subjective Patient denying any arm pain or symptoms at this time. Physical Exam Physical Exam: Patient is reasonable strength testing upper extremities. Results & Data Vital Signs (Past 12 Hours) Vital Signs Temp Pulse Resp BP Pulse Ox 01/28/19 07:53 36.6 C 83 20 158/82 H 95 01/27/19 23:58 162/89 H 01/27/19 22:44 36.9 C 78 16 198/104 H 95
--- NOTE | 2019-01-28 11:41 | Hospitalist Progress Note ---
Date of Service January 28, 2019 Assessment & Plan (1) Compression fracture of first lumbar vertebra: S/p fall with compression fracture. +Pain. Neurologically intact Seen by orthopedic spine surgery and given multiple thoracic spine and lumbar spinal vertebral fractures, recommends TLSO brace to be worn when out of bed- orthotics order placed and awaiting brace Continue pain control with Tylenol, Lidoderm patch, heating pad -Added Toradol but then patient tore out her IV again-convert to ibuprofen as needed -Continue Duloxetine (2) Fracture of C7 vertebra, closed: Neurologically intact -Ortho consult appreciated-recommends [place] J collar at all times when out of bed-may remove with eating -Pain control as above (3) Compression fracture of thoracic vertebra: Patient with mild compression fractures of T1, T2, T3, T5 and T12 - likely acute to subacute. No retropulsion at these levels. These are all osteoporotic fractures -Pain control as above -To receive TLSO brace as above-orthotics consulted -Given multiple compression fractures with fall from standing height-with osteoporosis as below (4) Closed rib fracture: Acute mildly displaced posterior first rib fracture on the left and first rib on right. No pneumothorax. Patient is in considerable discomfort in upper left back. -Pain control with Tylenol 1gm po TID, Heat, Cymbalta, ibuprofen as above -Avoid opioids in this elderly patient with dementia (5) Anorexia: Patient with advanced dementia, poor appetite over the last few days due to severe pain from fall and multiple fractures. No overt evidence of infection. Is now eating and drinking since receiving pain control -Can discontinue IV fluids -Continue to encourage PO intake -Soft/bite sized meals. Patient with no dentures in place (6) Type 2 diabetes mellitus: Blood sugars fairly well controlled here -Continue Lantus 5u BID, ISS -Check [id number] -Hold Metformin from home (7) Hypertension: Blood pressure significantly elevated here-likely secondary to pain and anxiety. She is asymptomatic with this -Continue pain control -She has no IV -Give amlodipine 5 mg once daily first dose now -Follow blood pressures -Could give clonidine 0.1 mg as needed (8) Hyperlipidemia: Chronic. Patient recently taken off Lovastatin due to pill intolerance. Given patient's age and functional status agree with limiting pill burden in effort to maximize patient comfort (9) Alzheimer disease: Chronic. Seems moderate to severe in nature Patient with functional decline which is documented in her outpatient visit notes but she continues to live alone as per family's wishes. Unable to care for herself at home. 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 However, given patient's recent fall and immobility she is difficult to be safely managed at home -Continue Aricept -Continue Memantine although her extended release version is not available here- consider either bring it in from home or giving her the immediate release dosing here if she will be here for a prolonged period of time -Delirium prevention strategies with frequent orientation, sleep preservation and ambulation with assistance (10) Hypothyroid: Chronic. Stable -Continue Synthroid (11) Osteoporosis: Vitamin D level was normal just 6 months ago at 34.8 -Continue calcium plus vitamin D from home -Consider Prolia versus Forteo as would not be a good candidate for bisphosphonate given history of GI bleeding and GERD (12) Hypokalemia: Potassium 3.4 -Replace with potassium chloride p.o. (13) DVT prophylaxis: Ppx - Low risk for DVT. Continue Nexium Code - DNR/DNI Dispo -continued stay on medical floor PT/OT consultations Will need rehab placement Case management involved Subjective Pt reports pain in her back with movement but is comfortable at rest now after receiving toradol. She is confused. RN reports she is eating a little bit and drinking. She pulled her IV out overnight. Denies chest pain or SOB. Her [place] J collar was placed as per recommendation from orthopedic surgery and RN reports she immediately took it off. Review of Systems Review of Systems: All systems reviewed & are unremarkable except as noted in HPI & below Physical Exam Constitutional: WD/WN, vitals as above Eyes: + anicteric sclerae ENMT: external ear and nose normal, oropharynx normal Neck: trachea midline, no thyromegaly Respiratory: normal respiratory effort, lungs clear to auscultation Cardiovascular: RRR, no murmur, no edema Gastrointestinal (Abdomen): normal bowel sounds, soft, nontender, no hepatosplenomegaly Musculoskeletal: Spine: + thoracic spinal tenderness and + lumbar spinal tenderness Extremities: extremities normal to inspection; no cyanosis and no clubbing Skin: no rashes, warm and dry Neurologic: moves all extremities and awake; no focal motor deficits Psychiatric: Orientation: alert, oriented to person and cooperative Eye Contact: + fair eye contact Speech: normal rate/rhythm/volume of speech Affect: + flat affect Cognition: + recent memory not intact Insight: + poor insight Results & Data Vital Signs (Past 12 Hours) Vital Signs Temp Pulse Resp BP Pulse Ox 01/28/19 07:53 36.6 C 83 20 158/82 H 95 01/27/19 23:58 162/89 H Laboratory Results 01/28/19 01/28/19 01/28/19 Range/Units 16:35 11:49 07:42 WBC (4.8-10.8) K/uL RBC (4.2-5.4) M/uL Hgb (12.0-16.0) g/dL Hct (37-47) % MCV (80-100) fL MCH (25-34) pg MCHC (32-36) g/dL RDW Std Deviation (36.4-46.3) fL RDW Coeff of Jolanta (11.5-14.5) % Plt Count (130-400) K/uL MPV (7.4-10.4) fL Immature Gran % (Auto) % Neut % (Auto) % Lymph % (Auto) % [place] % (Auto) % Eos % (Auto) % Baso % (Auto) % Immature Gran # (Auto) (0.00-0.02) K/uL Neut # (Auto) (1.4-6.5) K/uL Lymph # (Auto) (1.2-3.4) K/uL [place] # (Auto) (0.11-0.59) K/uL Eos # (Auto) (0-0.5) K/uL Baso # (Auto) (0-0.2) K/uL Sodium (136-145) mmol/L Potassium (3.5-5.1) mmol/L Chloride (98-107) mmol/L Carbon Dioxide (21-32) mmol/L Anion Gap (3-11) BUN (7-18) mg/dl Creatinine (0.6-1.2) mg/dl Est Cr Clr Drug Dosing ml/min Est GFR ( Amer) Est GFR (Non-Af Amer) BUN/Creatinine Ratio (10-20) Glucose (70-99) mg/dl POC Glucose 136 H 208 H 151 H (70-99) Estimat Average Glucose Hemoglobin A1c Calcium (8.5-10.1) mg/dl Phosphorus (2.5-4.9) mg/dl Magnesium (1.8-2.4) mg/dl 01/28/19 01/28/19 01/28/19 Range/Units 06:08 06:08 06:08 WBC 8.89 (4.8-10.8) K/uL RBC 4.63 (4.2-5.4) M/uL Hgb 14.8 (12.0-16.0) g/dL Hct 43.0 (37-47) % MCV 92.9 (80-100) fL MCH 32.0 (25-34) pg MCHC 34.4 (32-36) g/dL RDW Std Deviation 44.0 (36.4-46.3) fL RDW Coeff of Jolanta 12.9 (11.5-14.5) % Plt Count 316 (130-400) K/uL MPV 9.7 (7.4-10.4) fL Immature Gran % (Auto) 0.1 % Neut % (Auto) 63.0 % Lymph % (Auto) 27.6 % [place] % (Auto) 6.9 % Eos % (Auto) 1.6 % Baso % (Auto) 0.8 % Immature Gran # (Auto) 0.01 (0.00-0.02) K/uL Neut # (Auto) 5.61 (1.4-6.5) K/uL Lymph # (Auto) 2.45 (1.2-3.4) K/uL [place] # (Auto) 0.61 H (0.11-0.59) K/uL Eos # (Auto) 0.14 (0-0.5) K/uL Baso # (Auto) 0.07 (0-0.2) K/uL Sodium 138 (136-145) mmol/L Potassium 3.4 L (3.5-5.1) mmol/L Chloride 102 (98-107) mmol/L Carbon Dioxide 29 (21-32) mmol/L Anion Gap 7.0 (3-11) BUN 17 (7-18) mg/dl Creatinine 0.83 (0.6-1.2) mg/dl Est Cr Clr Drug Dosing 54.8 ml/min Est GFR ( Amer) 79.9 Est GFR (Non-Af Amer) 69.0 BUN/Creatinine Ratio 20.4 H (10-20) Glucose 153 H (70-99) mg/dl POC Glucose (70-99) Estimat Average Glucose Pending Hemoglobin A1c Pending Calcium 9.7 (8.5-10.1) mg/dl Phosphorus (2.5-4.9) mg/dl Magnesium (1.8-2.4) mg/dl 01/27/19 01/27/19 Range/Units 23:34 17:55 WBC (4.8-10.8) K/uL RBC (4.2-5.4) M/uL Hgb (12.0-16.0) g/dL Hct (37-47) % MCV (80-100) fL MCH (25-34) pg MCHC (32-36) g/dL RDW Std Deviation (36.4-46.3) fL RDW Coeff of Jolanta (11.5-14.5) % Plt Count (130-400) K/uL MPV (7.4-10.4) fL Immature Gran % (Auto) % Neut % (Auto) % Lymph % (Auto) % [place] % (Auto) % Eos % (Auto) % Baso % (Auto) % Immature Gran # (Auto) (0.00-0.02) K/uL Neut # (Auto) (1.4-6.5) K/uL Lymph # (Auto) (1.2-3.4) K/uL [place] # (Auto) (0.11-0.59) K/uL Eos # (Auto) (0-0.5) K/uL Baso # (Auto) (0-0.2) K/uL Sodium (136-145) mmol/L Potassium (3.5-5.1) mmol/L Chloride (98-107) mmol/L Carbon Dioxide (21-32) mmol/L Anion Gap (3-11) BUN (7-18) mg/dl Creatinine (0.6-1.2) mg/dl Est Cr Clr Drug Dosing ml/min Est GFR ( Amer) Est GFR (Non-Af Amer) BUN/Creatinine Ratio (10-20) Glucose (70-99) mg/dl POC Glucose 182 H (70-99) Estimat Average Glucose Hemoglobin A1c Calcium (8.5-10.1) mg/dl Phosphorus 3.0 (2.5-4.9) mg/dl Magnesium 1.9 (1.8-2.4) mg/dl PG Care Time/CCT Total # of Minutes Spent Total Time Spent with Patient: Total time spent is greater than 50% in coordination of care (as documented) at patient's floor/unit and/or counseling patient: (1) Compression fracture of first lumbar vertebra Encounter type: initial encounter Qualified Code(s): S32.010A - Wedge compression fracture of first lumbar vertebra, initial encounter for closed fracture (2) Closed rib fracture Encounter type: initial encounter Laterality: bilateral Rib fracture type: multiple ribs Qualified Code(s): S22.43XA - Multiple fractures of ribs, bilat eral, initial encounter for closed fracture (3) Type 2 diabetes mellitus Diabetes mellitus complication status: without complication Diabetes mellitus rat exterminator insulin use: without rat exterminator use Qualified Code(s): E11.9 - Type 2 diabetes mellitus without complications (4) Alzheimer disease Alzheimer's disease onset: late-onset Dementia behavioral disturbance: without behavioral disturbance Qualified Code(s): G30.1 - Alzheimer's disease with late onset; F02.80 - Dementia in other diseases classified elsewhere without behavioral disturbance (5) Hyperlipidemia Hyperlipidemia type: unspecified Qualified Code(s): E78.5 - Hyperlipidemia, unspecified (6) Hypothyroid Hypothyroidism type: unspecified Qualified Code(s): E03.9 - Hypothyroidism, unspecified (7) Compression fracture of thoracic vertebra Encounter type: initial encounter Thoracic vertebra fracture level: unspecified thoracic vertebra Qualified Code(s): S22.000A - Wedge compression fracture of unspecified thoracic vertebra, initial encounter for closed fracture (8) Hypertension Hypertension type: essential hypertension Qualified Code(s): I10 - Essential (primary) hypertension
[2019-01-28] MEDS ORDERED: AMLODIPINE BESYLATE 5 MG TAB PO ONE (16:12)
[2019-01-28] MEDS: LIDOCAINE 5% 1 PATCH TD SCH (20:37)
[2019-01-29 06:32] LABS: Estimated Average Glucose 194 mg/dl; Hemoglobin A1C 8.4 % (4.5-5.6)
[2019-01-29] MEDS: IBUPROFEN 200 MG TAB PO PRN ×2 (07:07→12:31)
[2019-01-29] MEDS: ACETAMINOPHEN 500 MG TAB PO SCH ×3 (08:13→21:59)
[2019-01-29] MEDS: AMLODIPINE BESYLATE 5 MG TAB PO SCH (08:14)
[2019-01-29] MEDS: CYANOCOBALAMIN 500 MCG TABLET (VITAMIN B-12) PO SCH (09:07)
[2019-01-29] MEDS: DULOXETINE HCL 20 MG CAP PO SCH (09:07)
[2019-01-29] MEDS: LEVOTHYROXINE SODIUM 125 MCG TABLET PO SCH (09:07)
[2019-01-29] MEDS: DONEPEZIL HCL 10 MG TAB PO SCH (09:07)
[2019-01-29] MEDS: PANTOprazole 40 MG TAB PO SCH (09:07)
[2019-01-29] MEDS: FERROUS SULFATE 325 MG TAB PO SCH (09:07)
[2019-01-29] MEDS: INSULIN ASPART 100 UNITS/ML 3 ML PEN SC SCH ×4 (09:09→20:30)
[2019-01-29] MEDS: INSULIN GLARGINE SOLOSTAR 100 UNITS/ML 3 ML PEN SC SCH ×2 (09:11→21:57)
--- NOTE | 2019-01-29 14:18 | Hospitalist Progress Note ---
Date of Service January 29, 2019 Assessment & Plan (1) Compression fracture of first lumbar vertebra: suspected osteoporotic fractures of lumbar spine, thoracic spine, cervical spine and ribs due to ground level fall S/p fall with compression fracture. +Pain. Neurologically intact Seen by orthopedic spine surgery and given multiple thoracic spine and lumbar spinal vertebral fractures, recommends TLSO brace to be worn when out of bed orthotic order placed concerned that patient won't be compliant as she removed her [place] J collar immediately Continue pain control with Tylenol, Lidoderm patch, heating pad ibuprofen as needed -Continue Duloxetine she is comfortable while sitting in bed (2) Fracture of C7 vertebra, closed: Neurologically intact -Ortho consult appreciated-recommends [place] J collar at all times when out of bed-may remove with eating -Pain control as above patient non-compliant with the collar (3) Compression fracture of thoracic vertebra: Patient with mild compression fractures of T1, T2, T3, T5 and T12 - likely acute to subacute. No retropulsion at these levels. These are all osteoporotic fractures -Pain control as above -To receive TLSO brace as above-orthotics consulted will see if she will be compliant -Given multiple compression fractures with fall from standing height-with osteoporosis as below (4) Closed rib fracture: Acute mildly displaced posterior first rib fracture on the left and first rib on right. No pneumothorax. Patient is in considerable discomfort in upper left back. -Pain control with Tylenol 1gm po TID, Heat, Cymbalta, ibuprofen as above -Avoid opioids in this elderly patient with dementia (5) Anorexia: Is now eating and drinking since receiving pain control -Continue to encourage PO intake -Soft/bite sized meals. Patient with no dentures in place (6) Type 2 diabetes mellitus: Blood sugars fairly well controlled here, monitor for hypoglycemia -Continue Lantus 5u BID, ISS -Hold Metformin from home (7) Hypertension: Blood pressure significantly elevated here-likely secondary to pain and anxiety. She is asymptomatic with this -Continue pain control - amlodipine 5 mg once daily BP is better (8) Hyperlipidemia: Chronic. Patient recently taken off Lovastatin due to pill intolerance. Given patient's age and functional status agree with limiting pill burden in effort to maximize patient comfort (9) Alzheimer disease: Chronic. Seems moderate to severe in nature Patient with functional decline which is documented in her outpatient visit notes but she continues to live alone as per family's wishes. Unable to care for herself at home. 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 However, given patient's recent fall and immobility she is difficult to be safely managed at home -Continue Aricept -Continue Memantine although her extended release version is not available here- consider either bring it in from home or giving her the immediate release dosing here if she will be here for a prolonged period of time -Delirium prevention strategies with frequent orientation, sleep preservation and ambulation with assistance (10) Hypothyroid: Chronic. Stable -Continue Synthroid (11) Osteoporosis: Vitamin D level was normal just 6 months ago at 34.8 -Continue calcium plus vitamin D from home -Consider Prolia versus Forteo as would not be a good candidate for bisphosphonate given history of GI bleeding and GERD (12) Hypokalemia: continue oral supplementation (13) DVT prophylaxis: Ppx - Low risk for DVT. Continue Nexium Code - DNR/DNI Dispo -continued stay on medical floor PT/OT consultations Will need rehab placement Case management involved Subjective patient is disoriented, when asked where she is she states "I am here" she cannot tell me what is going on, why she is in the hospital, the year she responds to her name she is in a slight degree of discomfort the RN says that she pulled out her IV and she would not keep the [place] J collar on at all d/w CM, they will reach out to the family to discuss rehab options reviewed the chart, no labs today Review of Systems Review of Systems: Unobtainable due to cognitive status Physical Exam Constitutional: well developed, + frail appearing and cooperative; no acute distress Eyes: PERRL, conjunctivae normal, anicteric sclerae ENMT: external ear and nose normal, oropharynx normal Neck: trachea midline, no thyromegaly Respiratory: normal respiratory effort, lungs clear to auscultation Cardiovascular: RRR, no murmur, no edema Gastrointestinal (Abdomen): normal bowel sounds, soft, nontender, no hepatosplenomegaly Musculoskeletal: no cyanosis or clubbing, extremities motor strength 5/5 Skin: no rashes, warm and dry Neurologic: patellar DTR's 2+ bilat, sensation intact and PERRL, EOMI, accommodation nl, no face palsy, no dysarthria Psychiatric: Orientation: alert, oriented to person and + guarded; + not oriented to place and + not oriented to time Lymphatic: no cervical or axillary lymphadenopathy Results & Data Vital Signs (Past 12 Hours) Vital Signs Temp Pulse Resp BP Pulse Ox 01/29/19 07:38 36.4 C L 60 16 165/82 H 94 Medications Administered Current Inpatient Medications Acetaminophen (Tylenol) 1,000 mg PO TID [facility] Stop: 02/27/19 08:59 Last Admin: 01/29/19 08:13 Dose: 1,000 mg Documented by: Amlodipine Besylate (Norvasc) 5 mg PO QAM [facility] Stop: 02/28/19 08:59 Last Admin: 01/29/19 08:14 Dose: 5 mg Documented by: Cyanocobalamin (Vitamin B-12) 1,000 mcg PO DAILY@1000 [facility] Stop: 02/27/19 09:59 Last Admin: 01/29/19 09:07 Dose: 1,000 mcg Documented by: Dextrose (Dextrose 50%) 25 - 50 ml IV UD PRN; Protocol PRN Reason: Hypoglycemia Protocol Stop: 02/26/19 22:37 Donepezil HCl (Aricept) 10 mg PO DAILY@1000 [facility] Stop: 02/27/19 09:59 Last Admin: 01/29/19 09:07 Dose: 10 mg Documented by: Duloxetine HCl (Cymbalta) 20 mg PO DAILY@1000 [facility] Stop: 02/27/19 09:59 Last Admin: 01/29/19 09:07 Dose: 20 mg Documented by: Ferrous Sulfate (Feosol) 325 mg PO DAILY@1000 [facility] Stop: 02/27/19 09:59 Last Admin: 01/29/19 09:07 Dose: 325 mg Documented by: Glucagon (Glucagen) 1 mg SQ UD PRN; Protocol PRN Reason: Hypoglycemia Protocol Stop: 02/26/19 22:37 Glucose (Glucose 40%) 15 - 30 gm PO UD PRN; Protocol PRN Reason: Hypoglycemia Protocol Stop: 02/26/19 22:37 Glucose (Dex4 Glucose) 4 - 8 tabs PO UD PRN; Protocol PRN Reason: Hypoglycemia Protocol Stop: 02/26/19 22:37 Ibuprofen (Advil) 400 mg PO Q6H PRN PRN Reason: Pain Stop: 02/27/19 12:06 Last Admin: 01/29/19 12:31 Dose: 400 mg Documented by: Insulin Aspart (Novolog Flexpen) 0 units SC ACHS [facility] Stop: 02/26/19 23:29 Last Admin: 01/29/19 12:27 Dose: 2 units Documented by: Insulin Glargine (Lantus Solostar Pen) 5 units SC BID [facility] Stop: 02/26/19 23:29 Last Admin: 01/29/19 09:11 Dose: 5 units Documented by: Levothyroxine Sodium (Synthroid) 125 mcg PO DAILY@1000 [facility] Stop: 02/27/19 09:59 Last Admin: 01/29/19 09:07 Dose: 125 mcg Documented by: Lidocaine (Lidoderm 5%) 1 patch TD HS [facility] Stop: 02/26/19 23:29 Last Admin: 01/28/19 20:37 Dose: 1 patch Documented by: Miscellaneous (Carbohydrates For Hypoglycemia) 15 - 30 gm PO UD PRN PRN Reason: Hypoglycemia Treatment Stop: 02/26/19 22:37 Miscellaneous (Order Awaiting Action) 1 ea N/A QS [facility] Stop: 02/26/19 23:29 Last Admin: 01/29/19 09:10 Dose: Not Given Documented by: Miscellaneous (Remove Lidoderm Patch) 1 ea N/A QAM [facility] Stop: 02/26/19 09:59 Last Admin: 01/29/19 09:08 Dose: Not Given Documented by: Pantoprazole Sodium (Protonix) 40 mg PO DAILY@1000 [facility] Stop: 02/27/19 09:59 Last Admin: 01/29/19 09:07 Dose: 40 mg Documented by: PG Care Time/CCT Total # of Minutes Spent Total Time Spent with Patient: Total time spent is greater than 50% in coordination of care (as documented) at patient's floor/unit and/or counseling patient: (1) Compression fracture of first lumbar vertebra Encounter type: initial encounter Qualified Code(s): S32.010A - Wedge compression fracture of first lumbar vertebra, initial encounter for closed fracture (2) Compression fracture of thoracic vertebra Encounter type: initial encounter Thoracic vertebra fracture level: unspecified thoracic vertebra Qualified Code(s): S22.000A - Wedge compression fracture of unspecified thoracic vertebra, initial encounter for closed fracture (3) Closed rib fracture Encounter type: initial encounter Laterality: bilateral Rib fracture type: multiple ribs Qualified Code(s): S22.43XA - Multiple fractures of ribs, bilateral, initial encounter for closed fracture (4) Type 2 diabetes mellitus Diabetes mellitus alf insulin use: without alf use Diabetes mellitus complication status: without complication Qualified Code(s): E11.9 - Type 2 diabetes mellitus without complications (5) Hypertension Hypertension type: essential hypertension Qualified Code(s): I10 - Essential (primary) hypertension (6) Hyperlipidemia Hyperlipidemia type: unspecified Qualified Code(s): E78.5 - Hyperlipidemia, unspecified (7) Alzheimer disease Alzheimer's disease onset: late-onset Dementia behavioral disturbance: without behavioral disturbance Qualified Code(s): G30.1 - Alzheimer's disease with late onset; F02.80 - Dementia in other diseases classified elsewhere without behavioral disturbance (8) Hypothyroid Hypothyroidism type: unspecified Qualified Code(s): E03.9 - Hypothyroidism, unspecified
[2019-01-29] MEDS: LIDOCAINE 5% 1 PATCH TD SCH (21:57)
[2019-01-29] MEDS: MEMANTINE HCL 10 MG TAB PO SCH (21:59)
[2019-01-30] MEDS: AMLODIPINE BESYLATE 5 MG TAB PO SCH (08:05)
[2019-01-30] MEDS: MEMANTINE HCL 10 MG TAB PO SCH (08:07)
[2019-01-30] MEDS: INSULIN GLARGINE SOLOSTAR 100 UNITS/ML 3 ML PEN SC SCH (08:10)
[2019-01-30] MEDS: INSULIN ASPART 100 UNITS/ML 3 ML PEN SC SCH ×2 (08:15→12:16)
[2019-01-30] MEDS: CYANOCOBALAMIN 500 MCG TABLET (VITAMIN B-12) PO SCH (09:49)
[2019-01-30] MEDS: DULOXETINE HCL 20 MG CAP PO SCH (09:49)
[2019-01-30] MEDS: DONEPEZIL HCL 10 MG TAB PO SCH (09:49)
[2019-01-30] MEDS: LEVOTHYROXINE SODIUM 125 MCG TABLET PO SCH (09:49)
[2019-01-30] MEDS: PANTOprazole 40 MG TAB PO SCH (09:49)
[2019-01-30] MEDS: FERROUS SULFATE 325 MG TAB PO SCH (09:50)
[2019-01-30] MEDS: ACETAMINOPHEN 500 MG TAB PO SCH ×2 (09:52→12:17)
--- NOTE | 2019-01-30 15:36 | Discharge Summary ---
Date of Service January 30, 2019 Admission HPI Per Admitting Provider Jordy Avelar is a 73yo C female with history of HTN, HLP, DM, Dementia - currently living alone. Baseline functional status - patient requires assistance with ADLs She ambulates with assistance. She has PERSONAL INJURY LEGAL ASSISTANT that comes in M-F from 6AM - 3PM but is unable to lift > 15#s, she has strong family support on the weekends. Fell last weekend getting out of bed. Found by family and helped back into bed. Since then she has been complaining of worsening low back pain as well as left shoulder pain. She has not been getting out of bed for the last week, poor po intake, sleepy. Has been having bowel accidents due to inability to get to the restroom in time from pain. No additional complaints at this time ER Course: NSS Principal Diagnosis Osteoporotic fractures, multiple, due to fall at home Discharge Exam Constitutional well developed, + frail appearing and cooperative; no acute distress Eyes PERRL, conjunctivae normal, anicteric sclerae ENMT external ear and nose normal, oropharynx normal Neck trachea midline, no thyromegaly Respiratory normal respiratory effort, lungs clear to auscultation Cardiovascular RRR, no murmur, no edema Gastrointestinal (Abdomen) normal bowel sounds, soft, nontender, no hepatosplenomegaly Musculoskeletal no cyanosis or clubbing, extremities motor strength 5/5 Skin no rashes, warm and dry Neurologic patellar DTR's 2+ bilat, sensation intact and PERRL, EOMI, accommodation nl, no face palsy, no dysarthria Psychiatric Orientation: alert, oriented to person and + guarded; + not oriented to place and + not oriented to time Lymphatic no cervical or axillary lymphadenopathy Discharge Data Allergies Allergy/AdvReac Type Severity Reaction Status Date / Time lisinopril Allergy Intermediate COUGH Verified 01/27/19 18:14 atorvastatin Allergy Unknown MED LIST Verified 01/27/19 18:14 simvastatin Allergy Unknown MED LIST Verified 01/27/19 18:14 Penicillins AdvReac Mild Verified 01/27/19 18:14 Consultations 01/27/19 22:38 Consult Case Management - Discharge Planning Routine Consult Orthopedic Surgery Routine Ordered Studies 01/27/19 17:31 CT cervical spine wo con Stat CT lumbar spine wo con Stat CT thoracic spine wo con Stat Hospital Course (1) Compression fracture of first lumbar vertebra: suspected osteoporotic fractures of lumbar spine, thoracic spine, cervical spine and ribs due to ground level fall S/p fall with compression fracture. +Pain. Neurologically intact Seen by orthopedic spine surgery and given multiple thoracic spine and lumbar spinal vertebral fractures, recommends TLSO brace to be worn when out of bed orthotic order placed concerned that patient won't be compliant as she removed her [place] collar immediately Continue pain control with Tylenol, Lidoderm patch, heating pad ibuprofen as needed -Continue Duloxetine she is comfortable while sitting in bed at time of discharge (2) Fracture of C7 vertebra, closed: Neurologically intact -Ortho consult appreciated-recommends [place] collar at all times when out of bed-may remove with eating -Pain control as above patient non-compliant with the collar (3) Compression fracture of thoracic vertebra: Patient with mild compression fractures of T1, T2, T3, T5 and T12 - likely acute to subacute. No retropulsion at these levels. These are all osteoporotic fractures -Pain control as above -To receive TLSO brace as above-orthotics consulted will see if she will be compliant -Given multiple compression fractures with fall from standing height-with osteoporosis as below (4) Closed rib fracture: Acute mildly displaced posterior first rib fracture on the left and first rib on right. No pneumothorax. Patient is in considerable discomfort in upper left back. -Pain control with Tylenol 1gm po TID, Heat, Cymbalta, ibuprofen as above -Avoid opioids in this elderly patient with dementia (5) Anorexia: Is now eating and drinking since receiving pain control -Continue to encourage PO intake -Soft/bite sized meals. Patient with no dentures in place (6) Type 2 diabetes mellitus: Blood sugars fairly well controlled here, monitor for hypoglycemia -Continue Lantus 5u BID, ISS resume Metformin on discharge (7) Hypertension: Blood pressure significantly elevated here-likely secondary to pain and anxiety. She is asymptomatic with this -Continue pain control - amlodipine 5 mg once daily BP is better (8) Hyperlipidemia: Chronic. Patient recently taken off Lovastatin due to pill intolerance. Given patient's age and functional status agree with limiting pill burden in effort to maximize patient comfort (9) Alzheimer disease: Chronic. Seems moderate to severe in nature Patient with functional decline which is documented in her outpatient visit notes but she continues to live alone as per family's wishes. Unable to care for herself at home. She has a PERSONAL INJURY LEGAL ASSISTANT daily from 6AM - 3PM as well as strong family support. However, given patient's recent fall and immobility she is difficult to be safely managed at home -Continue Aricept -Continue Memantine although her extended release version is not available here- consider either bring it in from home or giving her the immediate release dosing here if she will be here for a prolonged period of time -Delirium prevention strategies with frequent orientation, sleep preservation and ambulation with assistance (10) Hypothyroid: Chronic. Stable -Continue Synthroid (11) Osteoporosis: Vitamin D level was normal just 6 months ago at 34.8 -Continue calcium plus vitamin D from home -Consider Prolia versus Forteo as would not be a good candidate for bisphosphonate given history of GI bleeding and GERD (12) Hypokalemia: continue oral supplementation resolved (13) DVT prophylaxis: Ppx - Low risk for DVT. Continue Nexium Code - DNR/DNI Dispo - [facility] for rehab Total Time Total Time Spent Total Time Spent (In Minutes): 32 minutes Total Time Includes: Examination of the Patient, Discharge Planning and Medication Reconciliation Discharge Plan Discharge Items Patient Disposition: Transfer Inpatient Rehab Fac Reason For Visit: FALL, FAILURE TO THRIVE Discharge Diagnosis: Osteoporotic compression fractures of C7, L1 and multiple thoracic vertebrae Pathological fracture of ribs due to fall, osteoporosis Moderate to severe Dementia Ambulatory dysfunction Condition on Discharge: Fair Goals: improve strength and mobility comply with back brace and cervical collar Activity: Per Instructions section Lifting: Gradually increase as tolerated Bathing: No limitations Weightbearing: Full weightbearing Non-emergency contact: Primary Care Provider Call non-emergency contact if: you have any medication questions, your symptoms worsen, your pain is not controlled and you have a fever Follow-up/Referrals: Jonathan Metzger MD [Primary Care Provider] - Diet: Carb Consistent or DM2 Addtl Attending Provider Instructions: Medications: - LIDOCAINE: apply patch to back once daily - IBUPROFEN: use as needed for pain, be sure to take with food - NORVASC: added for better blood pressure control Osteoporotic fractures of C7, L1 and multiple thoracic vertebrae as well as bilateral rib fractures due to ground level fall pain control achieved with Ibuprofen and Lidoderm patch have avoided narcotics due to Alzheimer's dementia, she appears comfortable without them continue Vitamin D supplement, her levels are normal should consider Forteo or Prolia as outpatient, defer to PCP, avoid bisphosphonates with history of GI bleeding orthopedics recommends [place] collar as well as TLSO brace to be warm while out of bed patient has limited compliance with these measures due to her dementia and confusion Hypertension: BP better controlled with the addition of Norvasc 5mg daily FOLLOW UP - physician at [facility] this week - Dr. Metzger one week after discharge from rehab currently she resides at home with care givers, hope is that she can get stronger with rehab and return home Pending Studies at Discharge: No Stand-Alone Forms: My [facility] [employer] [facility] Skilled Items Patient informed of condition?: Yes DNR: Yes Discharge Level of Care: Acute rehab Communicable Disease: No Discharge Prognosis: Stable Lines: None Urinary Catheter: No Medications and DC Order Prescriptions: New amlodipine [Norvasc] 5 mg Tablet 5 mg PO QAM 30 Days Qty: 30 RF: 1 lidocaine 5 % Adhesive Patch,Medicated 1 patch transdermal HS 15 Days Qty: 15 RF: 0 ibuprofen 200 mg Tablet 400 mg PO Q6H PRN (Reason: pain) 10 Days Qty: 100 RF: 0 Continued levothyroxine 125 mcg tablet 125 mcg PO DAILY@1000 Qty: 30 RF: 0 acetaminophen 500 mg tablet 1,000 mg PO DAILY@1000,1500 RF: 0 calcium carbonate-vitamin D3 600 mg(1,500mg) -400 unit tablet 1 tab PO DAILY@1000 RF: 0 ferrous sulfate 325 mg (65 mg iron) tablet 325 mg PO DAILY@1000 RF: 0 multivitamin tablet 1 tab PO DAILY@1000 RF: 0 cyanocobalamin (vitamin B-12) 1,000 mcg tablet 1,000 mcg PO DAILY@1000 RF: 0 metformin 500 mg tablet 500 mg PO DAILY@1000 RF: 0 donepezil 10 mg tablet 10 mg PO DAILY@1000 RF: 0 lovastatin 20 mg tablet 20 mg PO DAILY@1000 RF: 0 esomeprazole magnesium 20 mg capsule,delayed release(DR/EC) 20 mg PO DAILY@1000 RF: 0 duloxetine 20 mg capsule,delayed release(DR/EC) 20 mg PO DAILY@1000 RF: 0 memantine 28 mg capsule,sprinkle,ER 24hr 28 mg PO DAILY@1000 RF: 0 Discharge Orders: Discharge Order (Routine); Ordered 01/30/19 Ordered By: Ian Parmar Admission Data Admit Date/Time: 01/27/19 21:41 Attending Provider: Ian Parmar Admit Provider: June Major Primary Care Provider: Jonathan Metzger Other Providers: Yohannes Petty ; Ingrid,[facility] Other Interventions: Discharge Summary Assessment (RN) Last Done: 01/30/19 14:43 DC Date/Time DO NOT enter until pt leaves facility: 01/30/19 16:51
== END 2019-01-30 16:51 | DRG 543 ==
LOC: ED 17:13 → SUATTDRO 21:41 → 2N 21:41

== ENCOUNTER 2021-02-14 06:28 | Inpatient (IN) ==
--- NOTE | 2021-02-14 07:21 | Emergency Department Note ---
Impression & Plan Unable to care for self, Alzheimer disease, Hypertension, Acute hyponatremia, High glucose ED Provider Note NAME: STACEY BERG AGE: 75 SEX: F : 1945 ARRIVES VIA: Ambulance INFORMANT: Patient, EMS, Family ED PROVIDER(S): Dajuan Potter DO CHIEF COMPLAINT: HPI: Patient is a 75-year-old female who was dropped off by EMS as family fired the in her home health nurse this morning. They sent her in for an evaluation. She has no complaints. She denies any headache or chest pain. No shortness of breath belly pain. No nausea, vomiting, or diarrhea. No dysuria, urgency, or frequency. No other exacerbating or remitting factors. ROS: See above HPI for pertinent positives & negatives. A total of 10 systems reviewed and were otherwise negative. PAST MEDICAL HISTORY:See Below PAST SURGICAL HISTORY:See Below FAMILY HISTORY:See Below SOCIAL HISTORY:See Below HOME MEDICATIONS:See Below ALLERGIES:See Below VITALS:See Below PHYSICAL EXAMINATION: GENERAL: Sitting up in bed, alert, well appearing, well nourished, no distress, non-toxic EYE EXAM: normal conjunctiva. OROPHARYNX: no exudate, no erythema, lips, buccal mucosa, and tongue normal and mucous membranes are moist NECK: supple, no nuchal rigidity, no adenopathy, non-tender LUNGS: Clear to auscultation. Normal chest wall mechanics HEART: no murmurs, S1 normal and S2 normal ABDOMEN: abdomen soft, non-tender, normo-active bowel sounds, no masses, no rebound or guarding. UPPER EXTREMITIES: upper extremities are grossly normal. LOWER EXTREMITIES: No pitting edema. NEURO EXAM: Normal sensorium, cranial nerves II-XII grossly intact, normal speech, no gross weakness of arms, no gross weakness of legs. MEDICAL DECISION MAKING: Patient is a 75-year-old female who presents the ER for inability to care for patient at home. Patient daughter who is in assisted and the grandson is unable to care for the patient after the nursing staff/in-home nursing quit. They do not have anybody to come in to help out. Patient is pleasantly demented at baseline per report. Labs were obtained and showed no significant leukocytosis or anemia. BMP with mild hyponatremia. LFTs bilirubin and troponin were negative. UA was clean. Covid was negative. Chest x-ray was unremarkable. Patient was discussed with hospitalist. I also discussed with the grandson who notes they can no longer care for the patient and she needs to be placed. Triage Nursing notes reviewed. Limited review of prior medical records performed Vital Signs: reviewed and remarkable for HTN Differential diagnosis: Infection, dehydration, metabolic abnormality, hypo/hyperglycemia, electrolyte disturbance, anemia, hypoxia, cardiac sources, intracerebral event, toxicologic, neurologic, as well as other pathologies. ER treatment provided: See below Diagnostics interpreted by me: ECG: none Cardiac Monitoring: An order was placed for continuous cardiac monitoring. The monitor shows a rate of 72 with sinus rhythm. Laboratory studies: As stated above and show below. Imaging studies: Portable AP upright 1 view the chest shows no focal infiltrate Consultation(s): Discussed with the hospitalist for further evaluation Procedures: none Past Med/Surg History Medical History (Updated 02/14/21 @ 13:30 by Dajuan Potter DO) Dementia Diabetes Dyslipidemia History of fracture of lower extremity Hypertension Hypothyroid Osteoarthritis Family History Daughter Depression Social History Smoking Status: Unknown if ever smoked Hx Alcohol Use: No Hx Substance Use: No Preferred Language: [place] Communication Ability: Effective Data Systems Manager Required: No Beliefs That Will Affect Care: None Current Living Situation: Alone Feels Safe at Home: No Assistive Devices: Brace/Splint/Immobilizer Allergies Allergies Allergy/AdvReac Type Severity Reaction Status Date / Time lisinopril Allergy Intermediate COUGH Verified 02/14/21 08:32 atorvastatin Allergy Unknown MED LIST Verified 02/14/21 08:32 simvastatin Allergy Unknown MED LIST Verified 02/14/21 08:32 Penicillins AdvReac Mild Verified 02/14/21 08:32 Home Meds Home Medications Medication Instructions Recorded Confirmed acetaminophen 500 mg tablet 1,000 mg PO BID tab 01/01/20 02/14/21 docusate sodium 100 mg capsule 100 mg PO BID cap 01/01/20 02/14/21 (Colace) esomeprazole magnesium 20 mg 20 mg PO DAILY 01/01/20 02/14/21 capsule,delayed release haloperidol 5 mg tablet 2.5 mg PO Q4H PRN tab 01/01/20 02/14/21 hyoscyamine sulfate 0.125 mg 0.125 mg PO Q6H tab 01/01/20 02/14/21 sublingual tablet (Levsin/SL) levothyroxine 112 mcg tablet 112 mcg PO DAILY 01/01/20 02/14/21 meloxicam 15 mg tablet (Mobic) 15 mg PO DAILY 01/01/20 02/14/21 Previous Rx's Medication Instructions Recorded Hospital Bed Home[facility] ([facility] e[facility] 12/26/19 Bed) multivitamin 1 tab PO DAILY #30 tab 01/01/20 psyllium husk 0.52 gram capsule 0.52 g PO DAILY #30 cap 01/01/20 (Metamucil) amlodipine 5 mg tablet 5 mg PO DAILY #90 tab 06/17/20 donepezil 10 mg tablet 10 mg PO DAILY #30 tab 10/10/20 memantine 10 mg tablet (Namenda) 20 mg PO DAILY #180 tab 10/10/20 lorazepam 1 mg tablet 1 mg PO BID #60 tab 01/14/21 Results & Data (ED) Vital Signs Vital Signs - 24 hr 02/14/21 06:40 02/14/21 06:59 02/14/21 07:42 Temperature 36.7 C Temperature Source Axillary Pulse Rate 88 86 Pulse Rate [Apical] 73 Pulse Strength Normal Respiratory Rate 20 16 Respiratory Effort / Characteristics Non-Labored Respiratory Depth Normal Blood Pressure 180/87 H Blood Pressure [Right Arm] 157/71 H Blood Pressure Mean 118 Blood Pressure Mean [Right Arm] 99 Blood Pressure Position Lying Blood Pressure Position [Right Arm] Pulse Oximetry 90 96 Oxygen Delivery Method Room Air Room Air Sepsis Recent Fever Within 48 Hours No Sepsis New/Unexplained Change in Mental Status No Sepsis Action Taken by Nursing No Action Required 02/14/21 08:27 Temperature Temperature Source Pulse Rate Pulse Rate [Apical] 52 L Pulse Strength Respiratory Rate 13 Respiratory Effort / Characteristics Respiratory Depth Blood Pressure Blood Pressure [Right Arm] 163/88 H Blood Pressure Mean Blood Pressure Mean [Right Arm] 113 Blood Pressure Position Blood Pressure Position [Right Arm] Semi-fowlers Pulse Oximetry 95 Oxygen Delivery Method Room Air Sepsis Recent Fever Within 48 Hours Sepsis New/Unexplained Change in Mental Status Sepsis Action Taken by Nursing Laboratory Data Result diagrams: 02/14/21 07:30 02/14/21 07:30 Lab Results 02/14/21 02/14/2102/14/21 Range/Units 07:30 07:30 07:30 WBC 8.39 (4.8-10.8) K/uL RBC 4.63 (4.2-5.4) M/uL Hgb 14.3 (12.0-16.0) g/dL Hct 43.1 (37-47) % MCV 93.1 (80-100) fL MCH 30.9 (25-34) pg MCHC 33.2 (32-36) g/dL RDW Std Deviation 45.4 (36.4-46.3) fL RDW Coeff of Jolanta 13.3 (11.5-14.5) % Plt Count 374 (130-400) K/uL MPV 9.5 (7.4-10.4) fL Immature Gran % (Auto) 0.2 % Neut % (Auto) 71.1 % Lymph % (Auto) 19.7 % [place] % (Auto) 6.2 % Eos % (Auto) 2.3 % Baso % (Auto) 0.5 % Neut # (Auto) 5.97 (1.4-6.5) K/uL Lymph # (Auto) 1.65 (1.2-3.4) K/uL [place] # (Auto) 0.52 (0.11-0.59) K/uL Eos # (Auto) 0.19 (0-0.5) K/uL Baso # (Auto) 0.04 (0-0.2) K/uL Immature Gran # (Auto) 0.02 (0.00-0.02) K/uL Sodium 133 L (136-145) mmol/L Potassium 4.1 (3.5-5.1) mmol/L Chloride 99 (98-107) mmol/L Carbon Dioxide 30 (21-32) mmol/L Anion Gap 4.0 (3-11) BUN 18 (7-18) mg/dl Creatinine 0.92 (0.6-1.2) mg/dl Est Cr Clr Drug Dosing Not Reportable Est GFR ( Amer) 69.6 ml/min Est GFR (Non-Af Amer) 60.1 ml/min BUN/Creatinine Ratio 19.1 (10-20) Glucose 210 H (70-99) mg/dl Calcium 9.9 (8.5-10.1) mg/dl Total Bilirubin 0.4 (0.2-1) mg/dl AST 16 (15-37) U/L ALT 16 (12-78) U/L Alkaline Phosphatase 108 (45-117) U/L Troponin I < 0.015 (0-0.045) ng/ml Total Protein 8.5 H (6.4-8.2) gm/dl Albumin 3.5 (3.4-5.0) gm/dl Globulin 5.0 H (2.5-4.0) gm/dl Albumin/Globulin Ratio 0.7 L (0.9-2) Lipase 170 (73-393) U/L Urine Color Yellow Urine Appearance Clear (Clear) Urine pH 7.0 (4.5-7.5) Ur Specific [place] 1.015 (1.000-1.030) Urine Protein Negative (Negative) Urine Glucose (UA) Negative (Negative) Urine Ketones Trace H (Negative) Urine Blood Negative (Negative) Urine Nitrite Negative (Negative) Urine Bilirubin Negative (Negative) Urine Urobilinogen Negative (Negative) Ur Leukocyte Esterase Negative (Negative) COVID-19 Eval Order SARS-CoV-2 (PCR) (Negative) 02/14/21 02/14/21 Range/Units 07:30 07:30 WBC (4.8-10.8) K/uL RBC (4.2-5.4) M/uL Hgb (12.0-16.0) g/dL Hct (37-47) % MCV (80-100) fL MCH (25-34) pg MCHC (32-36) g/dL RDW Std Deviation (36.4-46.3) fL RDW Coeff of Jolanta (11.5-14.5) % Plt Count (130-400) K/uL MPV (7.4-10.4) fL Immature Gran % (Auto) % Neut % (Auto) % Lymph % (Auto) % [place] % (Auto) % Eos % (Auto) % Baso % (Auto) % Neut # (Auto) (1.4-6.5) K/uL Lymph # (Auto) (1.2-3.4) K/uL [place] # (Auto) (0.11-0.59) K/uL Eos # (Auto) (0-0.5) K/uL Baso # (Auto) (0-0.2) K/uL Immature Gran # (Auto) (0.00-0.02) K/uL Sodium (136-145) mmol/L Potassium (3.5-5.1) mmol/L Chloride (98-107) mmol/L Carbon Dioxide (21-32) mmol/L Anion Gap (3-11) BUN (7-18) mg/dl Creatinine (0.6-1.2) mg/dl Est Cr Clr Drug Dosing Est GFR ( Amer) ml/min Est GFR (Non-Af Amer) ml/min BUN/Creatinine Ratio (10-20) Glucose (70-99) mg/dl Calcium (8.5-10.1) mg/dl Total Bilirubin (0.2-1) mg/dl AST (15-37) U/L ALT (12-78) U/L Alkaline Phosphatase (45-117) U/L Troponin I (0-0.045) ng/ml Total Protein (6.4-8.2) gm/dl Albumin (3.4-5.0) gm/dl Globulin (2.5-4.0) gm/dl Albumin/Globulin Ratio (0.9-2) Lipase (73-393) U/L Urine Color Urine Appearance (Clear) Urine pH (4.5-7.5) Ur Specific [place] (1.000-1.030) Urine Protein (Negative) Urine Glucose (UA) (Negative) Urine Ketones (Negative) Urine Blood (Negative) Urine Nitrite (Negative) Urine Bilirubin (Negative) Urine Urobilinogen (Negative) Ur Leukocyte Esterase (Negative) COVID-19 Eval Order Covid19 at [facility] SARS-CoV-2 (PCR) NEGATIVE (Negative) Imaging Data Radiologist's Impression: Chest X-Ray 02/14/21 07:42 XR chest 1V portable CLINICAL HISTORY: sob. COMPARISON STUDY: 01/27/2019 TECHNIQUE: 1 view of the chest FINDINGS: Single frontal view of the chest demonstrates the cardiomediastinal silhouette to be within normal limits. The lungs are clear of alveolar opacities. There is no evidence for pleural effusion. There is no evidence for vascular congestion. There is no acute osseous pathology. IMPRESSION: No acute cardiopulmonary disease. ACT 112: Negative or not required by law. Electronically signed by: Galo Aguilera M.D. 02/14/2021 8:09 AM Discharge Plan Visit Data Chief Complaint: Illness Stated Complaint: ILL/UNKNOWN ED Provider: Dajuan Potter Discharge Problem: Unable to care for self, Alzheimer disease, Hypertension, Acute hyponatremia, High glucose Patient Disposition: Admitted As Inpatient Discharge Instructions Interventions: ED Discharge Assessment Last Done: 02/14/21 13:03 Discharge Problem: Hypertension Qualifiers: Hypertension type: unspecified Qualified Code(s): I10 - Essential (primary) hypertension
[2021-02-14 07:43] LABS: Basophils # (auto) 0.04 K/uL (0-0.2); Basophils % (auto) 0.5 %; Eosinophils # (auto) 0.19 K/uL (0-0.5); Eosinophils % (auto) 2.3 %; Hematocrit (blood only) 43.1 % (37-47); Hemoglobin 14.3 g/dL (12.0-16.0); Immature Granulocytes # (auto) 0.02 K/uL (0.00-0.02); Immature Granulocytes % (auto) 0.2 %; Lymphocytes # (auto) 1.65 K/uL (1.2-3.4); Lymphocytes % (auto) 19.7 %; Mean Corpuscular Hemoglobin 30.9 pg (25-34); Mean Corpuscular Hgb Conc 33.2 g/dL (32-36); Mean Corpuscular Volume 93.1 fL (80-100); Mean Platelet Volume 9.5 fL (7.4-10.4); Monocytes # (auto) 0.52 K/uL (0.11-0.59); Monocytes % (auto) 6.2 %; Neutrophils # (auto) 5.97 K/uL (1.4-6.5); Neutrophils % (auto) 71.1 %; Platelet Count 374 K/uL (130-400); RDW Coefficient of Variation 13.3 % (11.5-14.5); RDW Standard Deviation 45.4 fL (36.4-46.3); Red Blood Count 4.63 M/uL (4.2-5.4); White Blood Count 8.39 K/uL (4.8-10.8)
[2021-02-14 07:44] LABS: Appearance Urine Clear (Clear); Bilirubin Urine Negative (Negative); Blood Urine Negative (Negative); Color Urine Yellow; Glucose Urine UA Negative (Negative); Ketones Urine Trace (Negative); Leukocyte Esterase Urine Negative (Negative); Nitrite Urine Negative (Negative); Protein Urine Negative (Negative); Specific Gravity Urine 1.015 (1.000-1.030); Urobilinogen Urine Negative (Negative)
[2021-02-14 08:01] LABS: Alanine Aminotransferase 16 U/L (12-78); Albumin Level 3.5 gm/dl (3.4-5.0); Aspartate Aminotransferase 16 U/L (15-37); BUN Creatinine Ratio 19.1 (10-20); Blood Urea Nitrogen 18 mg/dl (7-18); Calcium 9.9 mg/dl (8.5-10.1); Carbon Dioxide 30 mmol/L (21-32); Chloride 99 mmol/L (98-107); Est GFR (African American) 69.6 ml/min; Est GFR (Non-African American) 60.1 ml/min; Glucose 210 mg/dl (70-99); Lipase 170 U/L (73-393); Potassium 4.1 mmol/L (3.5-5.1); Sodium 133 mmol/L (136-145)
[2021-02-14 08:06] LABS: Albumin Globulin Ratio 0.7 (0.9-2); Alkaline Phosphatase 108 U/L (45-117); Bilirubin,Total 0.4 mg/dl (0.2-1); Total Protein 8.5 gm/dl (6.4-8.2); Troponin I < 0.015 ng/ml (0-0.045)
--- NOTE | 2021-02-14 08:11 | XRay Report ---
XR chest 1V portable CLINICAL HISTORY: sob. COMPARISON STUDY: 01/27/2019 TECHNIQUE: 1 view of the chest FINDINGS: Single frontal view of the chest demonstrates the cardiomediastinal silhouette to be within normal li mits. The lungs are clear of alveolar opacities. There is no evidence for pleural effusion. There is no evidence for vascular congestion. There is no acute osseous pathology. IMPRESSION: No acute cardiopulmonary disease. ACT 112: Negative or not required by law. Electronically signed by: Galo Aguilera M.D. 02/14/2021 8:09 AM
[2021-02-14] MEDS ORDERED: ONDANSETRON INJ 2 MG/ML 2 ML VIAL IV PRN (14:10)
[2021-02-14] MEDS ORDERED: ACETAMINOPHEN 325 MG TAB PO PRN (14:10)
[2021-02-14] MEDS ORDERED: POLYETHYLENE (MIRALAX) 17 GM PACK PO PRN (14:10)
[2021-02-14] MEDS ORDERED: MAGNESIUM HYDROXIDE SUSP 30 ML UDC PO PRN (14:10)
[2021-02-14] MEDS ORDERED: ALUMINUM/MAGNESIUM SUSP 30 ML UDC PO PRN (14:10)
[2021-02-14] MEDS ORDERED: haloperidoL 0.5 MG TAB PO PRN ×2 (14:10→17:23)
[2021-02-14] MEDS ORDERED: HYOSCYAMINE SULFATE 0.125 MG PO SCH ×2 (14:10→20:00)
[2021-02-14] MEDS: HYOSCYAMINE SULFATE 0.125 MG TAB PO SCH (17:41)
--- NOTE | 2021-02-14 19:03 | History & Physical Report ---
Date of Service February 14, 2021 Assessment & Plan (1) Unable to care for self: Plan: Without being able to get a hold of the family, it is not entirely clear firsthand what happened at home, but at any rate it appears quite clear that she is not safe. We will need to work on placement. (2) Alzheimer disease: Plan: Appears severe and progressed. I do not see anything that seems acute (3) Type 2 diabetes mellitus: Plan: Because of her severe dementia, certainly I would not advocate for any type of tight glycemic control, mostly just trying to keep her out of any hyperglycemic dehydration (4) Discharge planning issues: Plan: PT/OT eval and treat, placement. Admission and Anticipated Discharge Date Admission Date: February 14, 2021 History of Present Illness Chief Complaint: not safe at home Primary Care Provider: Jonathan Metzger MD No HPI review of systems obtainable from patient. Tried to call familyno answerwent to voicemail. It seems this has been the same with everyone. Chart reviewed to gather background. Allergies Allergy/AdvReac Type Severity Reaction Status Date / Time lisinopril Allergy Intermediate COUGH Verified 02/14/21 08:32 atorvastatin Allergy Unknown MED LIST Verified 02/14/21 08:32 simvastatin Allergy Unknown MED LIST Verified 02/14/21 08:32 Penicillins AdvReac Mild Verified 02/14/21 08:32 Home Medications Medication Instructions Recorded Confirmed Type Hospital Bed Home[facility] ([facility] 12/26/19 02/14/21 Rx Bed) acetaminophen 500 mg tablet 1,000 mg PO BID tab 01/01/20 02/14/21 History docusate sodium 100 mg capsule 100 mg PO BID cap 01/01/20 02/14/21 History (Colace) esomeprazole magnesium 20 mg 20 mg PO DAILY 01/01/20 02/14/21 History capsule,delayed release haloperidol 5 mg tablet 2.5 mg PO Q4H PRN tab 01/01/20 02/14/21 History hyoscyamine sulfate 0.125 mg 0.125 mg PO Q6H tab 01/01/20 02/14/21 History sublingual tablet (Levsin/SL) levothyroxine 112 mcg tablet 112 mcg PO DAILY 01/01/20 02/14/21 History meloxicam 15 mg tablet (Mobic) 15 mg PO DAILY 01/01/20 02/14/21 History multivitamin 1 tab PO DAILY #30 tab 01/01/20 02/14/21 Rx psyllium husk 0.52 gram capsule 0.52 g PO DAILY #30 cap 01/01/20 02/14/21 Rx (Metamucil) amlodipine 5 mg tablet 5 mg PO DAILY #90 tab 06/17/20 02/14/21 Rx donepezil 10 mg tablet 10 mg PO DAILY #30 tab 10/10/20 02/14/21 Rx memantine 10 mg tablet (Namenda) 20 mg PO DAILY #180 tab 10/10/20 02/14/21 Rx lorazepam 1 mg tablet 1 mg PO BID #60 tab 01/14/21 02/14/21 Rx Past Med/Surg History Medical History (Updated 02/14/21 @ 19:05 by Dajuan Flowers DO) Dementia Diabetes Dyslipidemia History of fracture of lower extremity Hypertension Hypothyroid Osteoarthritis Family History Daughter Depression Social History Smoking Status: Unknown if ever smoked Hx Alcohol Use: No Hx Substance Use: No Preferred Language: Irish Communication Ability: Effective Rn Surgical Required: No Beliefs That Will Affect Care: None Current Living Situation: Alone Feels Safe at Home: No Assistive Devices: Brace/Splint/Immobilizer Review of Systems Review of Systems: Unobtainable due to cognitive status Physical Exam Physical Exam: In general she is lying in bed appears in no distress. Saw her twice todayfirst time sleeping comfortably, the next time awake but just staring forward. HEENT normocephalic atraumatic mucous membranes moist. Cardio is regular without rubs murmurs or gallops. Lungs clear to auscultation bilaterally with moderate spontaneous effort, no accessory muscle use good effort. Abdomen is soft nondistended nontender no masses organomegaly. Extremities without cyanosis or clubbing, she does appear to have about trace bilateral equal lower extremity edema. Skin without rashes pallor or icterus. No focal neuro deficits. Mentally she seems completely confused and not at all coherent. Results & Data Results & Data ([facility]) Vital Signs (Past 12 Hours) Vital Signs Temp Pulse Pulse Pulse Resp BP BP 02/14/21 16:12 99.0 F 53 L 16 157/84 H 02/14/21 14:33 57 L 18 02/14/21 12:32 62 16 167/85 H 02/14/21 10:29 45 L 13 02/14/21 08:27 52 L 13 163/88 H 02/14/21 07:42 86 Pulse Ox 02/14/21 16:12 94 02/14/21 14:33 98 02/14/21 12:32 95 02/14/21 10:29 94 02/14/21 08:27 95 02/14/21 07:42 96 Code Status & VTE Plan VTE Prophylaxis Plan VTE Prophylaxis will be ordered: Yes PG Care Time/CCT Total # of Minutes Spent Total Time Spent with Patient: Total time spent is greater than 50% in coordination of care (as documented) at patient's floor/unit and/or counseling patient: Coding Level of Care Code 07757 Initial Inpt Care Lvl 1 Diagnoses Unable to care for self Z78.9 Alzheimer disease G30.9; F02.80 Type 2 diabetes mellitus E11.9 Diabetes mellitus buttermaker helper insulin use: without buttermaker helper use Diabetes mellitus complication status: without complication Discharge planning issues Z02.9 (1) Type 2 diabetes mellitus Diabetes mellitus buttermaker helper insulin use: without alf use Diabetes mellitus complication status: without complication Qualified Code(s): E11.9 - Type 2 diabetes mellitus without complications
[2021-02-14] MEDS ORDERED: ACETAMINOPHEN HOME PACK 500 MG TABLET PO SCH (21:00)
[2021-02-14] MEDS: DOCUSATE SODIUM 100 MG CAP PO SCH (21:53)
[2021-02-14] MEDS: LORazepam 1 MG TAB PO SCH (21:55)
[2021-02-15] MEDS: HYOSCYAMINE SULFATE 0.125 MG TAB PO SCH ×4 (00:55→16:36)
[2021-02-15] MEDS: LEVOTHYROXINE SODIUM 112 MCG TABLET PO SCH (05:56)
[2021-02-15] MEDS: amLODIPine BESYLATE 5 MG TAB PO SCH (08:42)
[2021-02-15] MEDS: DOCUSATE SODIUM 100 MG CAP PO SCH ×2 (08:42→20:33)
[2021-02-15] MEDS: DONEPEZIL HCL 10 MG TAB PO SCH (08:42)
[2021-02-15] MEDS: MEMANTINE HCL 10 MG TAB PO SCH (08:42)
[2021-02-15] MEDS: PANTOprazole 40 MG TAB PO SCH (08:42)
[2021-02-15] MEDS: PSYLLIUM 58.6% POWDER PACKET PO SCH (08:42)
[2021-02-15] MEDS: MELOXICAM 7.5 MG TAB PO SCH (08:42)
[2021-02-15] MEDS: MULTIVITAMIN TAB PO SCH (08:42)
[2021-02-15] MEDS: LORazepam 1 MG TAB PO SCH ×2 (08:48→20:33)
--- NOTE | 2021-02-15 18:41 | Hospitalist Progress Note ---
Date of Service February 15, 2021 Assessment & Plan (1) Unable to care for self: Plan: In being able to gather more information of the situation, it sounds like quickly her home situation deteriorated to where it was no longer safe and she had no supervision. Unfortunately she will need to be placed. (2) Alzheimer disease: Plan: Appears severe and progressed. Nothing appears acute (3) Type 2 diabetes mellitus: Plan: Because of her severe dementia, certainly I would not advocate for any type of tight glycemic control, mostly just trying to keep her out of any hyperglycemic dehydration. No need for specific intervention at this time (4) Discharge planning issues: Plan: PT/OT eval and treat, placement will be the goal (5) DVT prophylaxis: Plan: ambulation Admission and Anticipated Discharge Date Admission Date: February 14, 2021 Subjective No meaningful HPI review of systems. First was seen laying in bed. Later walking in the hallway with therapy. I was able to discuss the case with Dr. Potter who saw her in the ERshe was able to reach a grandsonand it sounds like the home situation just quickly deteriorated to where the patient had no safe supervision and the family felt they had no ability to care for herhence sending her to the ER. Review of Systems Review of Systems: Unobtainable due to cognitive status Physical Exam 2 Physical Exam: Resting comfortably. No distress. HEENT normocephalic atraumatic mucous membranes moist. Breathing unlabored no accessory muscle use good effort. Skin shows no rashes no pallor or icterus. Neuro without focal deficits. Results & Data Results & Data ([facility]) Vital Signs (Past 12 Hours) Vital Signs Temp Pulse Resp BP Pulse Ox 02/15/21 15:23 97.5 F L 65 16 161/83 H 98 02/15/21 08:31 97.3 F L 68 16 129/77 95 PG Care Time/CCT Total # of Minutes Spent Total Time Spent with Patient: Total time spent is greater than 50% in coordination of care (as documented) at patient's floor/unit and/or counseling patient: Coding Level of Care Code 84465 Subseq Hosp Care Lvl 1 Diagnoses Unable to care for self Z78.9 Alzheimer disease G30.9; F02.80 Type 2 diabetes mellitus E11.9 Diabetes mellitus half-way insulin use: without half-way use Diabetes mellitus complication status: without complication Discharge planning issues Z02.9 DVT prophylaxis Z29.9 (1) Type 2 diabetes mellitus Diabetes mellitus half-way insulin use: without half-way use Diabetes mellitus complication status: without complication Qualified Code(s): E11.9 - Type 2 diabetes mellitus without complications
[2021-02-16] MEDS: HYOSCYAMINE SULFATE 0.125 MG TAB PO SCH ×5 (00:54→23:51)
[2021-02-16] MEDS: LEVOTHYROXINE SODIUM 112 MCG TABLET PO SCH (05:42)
[2021-02-16] MEDS: MELOXICAM 7.5 MG TAB PO SCH (07:55)
[2021-02-16] MEDS: MULTIVITAMIN TAB PO SCH (07:55)
[2021-02-16] MEDS: PANTOprazole 40 MG TAB PO SCH (07:55)
[2021-02-16] MEDS: amLODIPine BESYLATE 5 MG TAB PO SCH (07:55)
[2021-02-16] MEDS: DONEPEZIL HCL 10 MG TAB PO SCH (07:55)
[2021-02-16] MEDS: PSYLLIUM 58.6% POWDER PACKET PO SCH (07:56)
[2021-02-16] MEDS: MEMANTINE HCL 10 MG TAB PO SCH (07:56)
[2021-02-16] MEDS: DOCUSATE SODIUM 100 MG CAP PO SCH ×2 (07:56→20:20)
[2021-02-16] MEDS: LORazepam 1 MG TAB PO SCH ×2 (07:57→20:19)
--- NOTE | 2021-02-16 20:39 | Hospitalist Progress Note ---
Date of Service February 16, 2021 Assessment & Plan (1) Unable to care for self: Plan: In being able to gather more information of the situation, it sounds like quickly her home situation deteriorated to where it was no longer safe and she had no supervision. Unfortunately she will need to be placed. Awaiting placement. chart reviewed (2) Alzheimer disease: Plan: Appears severe and progressed. Nothing appears acute (3) Type 2 diabetes mellitus: Plan: Because of her severe dementia, certainly I would not advocate for any type of tight glycemic control, mostly just trying to keep her out of any hyperglycemic dehydration. No need for specific intervention at this time (4) Discharge planning issues: Plan: PT/OT eval and treat, placement will be the goal (5) DVT prophylaxis: Plan: ambulation Admission and Anticipated Discharge Date Admission Date: February 14, 2021 Subjective Patient is unable to provide significant history. Review of Systems Review of Systems: Unobtainable due to cognitive status Physical Exam Physical Exam: Constitutional: well developed, no acute distress Eyes: PERRL, conjunctivae normal, anicteric sclerae ENMT: external ear and nose normal, oropharynx normal Neck: trachea midline, no thyromegaly Respiratory: normal respiratory effort, lungs clear to auscultation Cardiovascular: RRR, no murmur, no edema Gastrointestinal (Abdomen): normal bowel sounds, soft, nontender, no hepatosplenomegaly Musculoskeletal: extremities motor strength 5/5 Skin: no rashes, warm and dry Neurologic: no face palsy, Psychiatric: not oriented to place and + not oriented to time Lymphatic: no cervical or axillary lymphadenopathy Results & Data Results & Data ([facility]) Vital Signs (Past 12 Hours) Vital Signs Temp Pulse Resp BP Pulse Ox 02/16/21 16:00 36.7 C 66 12 113/75 96 PG Care Time/CCT Total # of Minutes Spent Total Time Spent with Patient: Total time spent is greater than 50% in coordination of care (as documented) at patient's floor/unit and/or counseling patient: Coding Level of Care Code 75418 Subseq Hosp Care Lvl 2 Diagnoses Unable to care for self Z78.9 Alzheimer disease G30.9; F02.80 Type 2 diabetes mellitus E11.9 Diabetes mellitus director long term care insulin use: without [place] use Diabetes mellitus complication status: without complication Discharge planning issues Z02.9 DVT prophylaxis Z29.9 Time Spent (min) 25 (1) Type 2 diabetes mellitus Diabetes mellitus [place] [facility] insulin use: without director long term care use Diabetes mellitus complication status: without complication Qualified Code(s): E11.9 - Type 2 diabetes mellitus without complications
[2021-02-17] MEDS: LEVOTHYROXINE SODIUM 112 MCG TABLET PO SCH (05:15)
[2021-02-17] MEDS: HYOSCYAMINE SULFATE 0.125 MG TAB PO SCH ×4 (05:15→23:13)
[2021-02-17] MEDS: amLODIPine BESYLATE 5 MG TAB PO SCH (08:54)
[2021-02-17] MEDS: LORazepam 1 MG TAB PO SCH ×2 (08:54→20:04)
[2021-02-17] MEDS: MELOXICAM 7.5 MG TAB PO SCH (08:54)
[2021-02-17] MEDS: PANTOprazole 40 MG TAB PO SCH (08:54)
[2021-02-17] MEDS: DOCUSATE SODIUM 100 MG CAP PO SCH ×2 (08:54→20:01)
[2021-02-17] MEDS: PSYLLIUM 58.6% POWDER PACKET PO SCH (08:55)
[2021-02-17] MEDS: MEMANTINE HCL 10 MG TAB PO SCH (08:55)
[2021-02-17] MEDS: MULTIVITAMIN TAB PO SCH (08:55)
[2021-02-17] MEDS: DONEPEZIL HCL 10 MG TAB PO SCH (08:55)
--- NOTE | 2021-02-17 20:19 | Hospitalist Progress Note ---
Date of Service February 17, 2021 Assessment & Plan (1) Unable to care for self: Plan: In being able to gather more information of the situation, it sounds like quickly her home situation deteriorated to where it was no longer safe and she had no supervision. Unfortunately she will need to be placed. Awaiting placement. chart reviewed (2) Alzheimer disease: Plan: Appears severe and progressed. Nothing appears acute (3) Type 2 diabetes mellitus: Plan: Because of her severe dementia, certainly I would not advocate for any type of tight glycemic control, mostly just trying to keep her out of any hyperglycemic dehydration. No need for specific intervention at this time (4) Discharge planning issues: Plan: PT/OT eval and treat, placement will be the goal (5) DVT prophylaxis: Plan: ambulation Admission and Anticipated Discharge Date Admission Date: February 14, 2021 Subjective Patient is unable to provide significant history. Review of Systems Review of Systems: Unobtainable due to cognitive status Physical Exam Physical Exam: Constitutional: well developed, no acute distress Eyes: PERRL, conjunctivae normal, anicteric sclerae ENMT: external ear and nose normal, oropharynx normal Neck: trachea midline, no thyromegaly Respiratory: normal respiratory effort, lungs clear to auscultation Cardiovascular: RRR, no murmur, no edema Gastrointestinal (Abdomen): normal bowel sounds, soft, nontender, no hepatosplenomegaly Musculoskeletal: extremities motor strength 5/5 Skin: no rashes, warm and dry Neurologic: no face palsy, Psychiatric: not oriented to place and + not oriented to time Lymphatic: no cervical or axillary lymphadenopathy Results & Data Results & Data ([facility]) Vital Signs (Past 12 Hours) Vital Signs Temp Pulse Resp BP Pulse Ox 02/17/21 15:34 36.6 C 70 16 120/70 94 PG Care Time/CCT Total # of Minutes Spent Total Time Spent with Patient: Total time spent is greater than 50% in coordination of care (as documented) at patient's floor/unit and/or counseling patient: Coding Level of Care Code 10389 Subseq Hosp Care Lvl 1 Diagnoses Unable to care for self Z78.9 Alzheimer disease G30.9; F02.80 Type 2 diabetes mellitus E11.9 Diabetes mellitus watermelon harvesting supervisor insulin use: without correction use Diabetes mellitus complication status: without complication Discharge planning issues Z02.9 DVT prophylaxis Z29.9 (1) Type 2 diabetes mellitus Diabetes mellitus correction insulin use: without correction use Diabetes olivia litus complication status: without complication Qualified Code(s): E11.9 - Type 2 diabetes mellitus without complications
[2021-02-18] MEDS: HYOSCYAMINE SULFATE 0.125 MG TAB PO SCH ×3 (05:28→17:45)
[2021-02-18] MEDS: LEVOTHYROXINE SODIUM 112 MCG TABLET PO SCH (05:28)
[2021-02-18 07:42] LABS: BUN Creatinine Ratio 29.2 (10-20); Calcium 9.8 mg/dl (8.5-10.1); Creatinine Clr Calc Pharmacy 38.5 ml/min; Est GFR (African American) 60.7 ml/min; Est GFR (Non-African American) 52.4 ml/min; Potassium 3.9 mmol/L (3.5-5.1)
[2021-02-18 08:56] LABS: Hematocrit (blood only) 42.1 % (37-47); Hemoglobin 13.5 g/dL (12.0-16.0); Mean Corpuscular Hemoglobin 30.2 pg (25-34); Mean Corpuscular Hgb Conc 32.1 g/dL (32-36); Mean Corpuscular Volume 94.2 fL (80-100); Mean Platelet Volume 9.7 fL (7.4-10.4); Platelet Count 344 K/uL (130-400); RDW Coefficient of Variation 13.5 % (11.5-14.5); RDW Standard Deviation 46.6 fL (36.4-46.3); Red Blood Count 4.47 M/uL (4.2-5.4); White Blood Count 6.58 K/uL (4.8-10.8)
[2021-02-18] MEDS: amLODIPine BESYLATE 5 MG TAB PO SCH (08:57)
[2021-02-18] MEDS: PANTOprazole 40 MG TAB PO SCH (08:58)
[2021-02-18] MEDS: DONEPEZIL HCL 10 MG TAB PO SCH (08:58)
[2021-02-18] MEDS: PSYLLIUM 58.6% POWDER PACKET PO SCH (08:59)
[2021-02-18] MEDS: MELOXICAM 7.5 MG TAB PO SCH (08:59)
[2021-02-18] MEDS: MEMANTINE HCL 10 MG TAB PO SCH (08:59)
[2021-02-18] MEDS: MULTIVITAMIN TAB PO SCH (09:00)
[2021-02-18] MEDS: DOCUSATE SODIUM 100 MG CAP PO SCH ×2 (09:01→21:26)
[2021-02-18] MEDS: LORazepam 1 MG TAB PO SCH ×2 (09:03→21:26)
--- NOTE | 2021-02-18 18:59 | Hospitalist Progress Note ---
Date of Service February 18, 2021 Assessment & Plan (1) Unable to care for self: Plan: In being able to gather more information of the situation, it sounds like quickly her home situation deteriorated to where it was no longer safe and she had no supervision. Unfortunately she will need to be placed. Awaiting placement. chart reviewed (2) Alzheimer disease: Plan: Appears severe and progressed. Nothing appears acute (3) Type 2 diabetes mellitus: Plan: Because of her severe dementia, certainly I would not advocate for any type of tight glycemic control, mostly just trying to keep her out of any hyperglycemic dehydration. No need for specific intervention at this time (4) Discharge planning issues: Plan: PT/OT eval and treat, placement will be the goal (5) DVT prophylaxis: Plan: ambulation Admission and Anticipated Discharge Date Admission Date: February 14, 2021 Subjective Poor historian Review of Systems Review of Systems: All systems reviewed & are unremarkable except as noted in HPI & below Physical Exam Physical Exam: Constitutional: well developed, no acute distress Eyes: PERRL, conjunctivae normal, anicteric sclerae ENMT: external ear and nose normal, oropharynx normal Neck: trachea midline, no thyromegaly Respiratory: normal respiratory effort, lungs clear to auscultation Cardiovascular: RRR, no murmur, no edema Gastrointestinal (Abdomen): normal bowel sounds, soft, nontender, no hepatosplenomegaly Musculoskeletal: extremities motor strength 5/5 Skin: no rashes, warm and dry Neurologic: no face palsy, Psychiatric: not oriented to place and + not oriented to time Lymphatic: no cervical or axillary lymphadenopathy Results & Data Results & Data ([facility]) Vital Signs (Past 12 Hours) Vital Signs Temp Pulse Resp BP Pulse Ox 02/18/21 15:53 36.8 C 59 L 16 104/62 96 02/18/21 07:49 36.7 C 60 16 120/63 97 PG Care Time/CCT Total # of Minutes Spent Total Time Spent with Patient: Total time spent is greater than 50% in coordination of care (as documented) at patient's floor/unit and/or counseling patient: Coding Level of Care Code 60967 Subseq Hosp Care Lvl 1 Diagnoses Unable to care for self Z78.9 Alzheimer disease G30.9; F02.80 Type 2 diabetes mellitus E11.9 Diabetes mellitus law writer insulin use: without law writer use Diabetes mellitus complication status: without complication Discharge planning issues Z02.9 DVT prophylaxis Z29.9 (1) Type 2 diabetes mellitus Diabetes mellitus law writer insulin use: without [facility] use Diabetes mellitus complication status: without complication Qualified Code(s): E11.9 - Type 2 diabetes mellitus without complications
[2021-02-19] MEDS: HYOSCYAMINE SULFATE 0.125 MG TAB PO SCH ×4 (00:18→17:42)
[2021-02-19] MEDS: LEVOTHYROXINE SODIUM 112 MCG TABLET PO SCH (05:57)
[2021-02-19 06:54] LABS: Hematocrit (blood only) 39.6 % (37-47); Hemoglobin 12.5 g/dL (12.0-16.0); Mean Corpuscular Hgb Conc 31.6 g/dL (32-36); Mean Platelet Volume 9.8 fL (7.4-10.4); Platelet Count 346 K/uL (130-400); RDW Coefficient of Variation 13.5 % (11.5-14.5); Red Blood Count 4.17 M/uL (4.2-5.4); White Blood Count 7.16 K/uL (4.8-10.8)
[2021-02-19 07:29] LABS: BUN Creatinine Ratio 34.7 (10-20); Calcium 9.7 mg/dl (8.5-10.1); Creatinine Clr Calc Pharmacy 39.2 ml/min; Est GFR (African American) 62.2 ml/min; Est GFR (Non-African American) 53.7 ml/min; Potassium 3.9 mmol/L (3.5-5.1)
[2021-02-19] MEDS: DOCUSATE SODIUM 100 MG CAP PO SCH ×2 (08:52→20:07)
[2021-02-19] MEDS: MULTIVITAMIN TAB PO SCH (08:53)
[2021-02-19] MEDS: DONEPEZIL HCL 10 MG TAB PO SCH (08:53)
[2021-02-19] MEDS: amLODIPine BESYLATE 5 MG TAB PO SCH (08:53)
[2021-02-19] MEDS: PANTOprazole 40 MG TAB PO SCH (08:53)
[2021-02-19] MEDS: LORazepam 1 MG TAB PO SCH ×2 (08:54→20:07)
[2021-02-19] MEDS: MEMANTINE HCL 10 MG TAB PO SCH (08:54)
[2021-02-19] MEDS: MELOXICAM 7.5 MG TAB PO SCH (08:54)
[2021-02-19] MEDS: PSYLLIUM 58.6% POWDER PACKET PO SCH (08:55)
--- NOTE | 2021-02-19 20:21 | Hospitalist Progress Note ---
Date of Service February 19, 2021 Assessment & Plan (1) Unable to care for self: Plan: In being able to gather more information of the situation, it sounds like quickly her home situation deteriorated to where it was no longer safe and she had no supervision. Unfortunately she will need to be placed. Awaiting placement. chart reviewed (2) Alzheimer disease: Plan: Appears severe and progressed. Nothing appears acute (3) Type 2 diabetes mellitus: Plan: Because of her severe dementia, certainly I would not advocate for any type of tight glycemic control, mostly just trying to keep her out of any hyperglycemic dehydration. No need for specific intervention at this time (4) Discharge planning issues: Plan: PT/OT eval and treat, placement will be the goal (5) DVT prophylaxis: Plan: ambulation Admission and Anticipated Discharge Date Admission Date: February 14, 2021 Subjective Patient is a poor historian. Review of Systems Review of Systems: All systems reviewed & are unremarkable except as noted in HPI & below Physical Exam Physical Exam: Constitutional: well developed, no acute distress Eyes: PERRL, conjunctivae normal, anicteric sclerae ENMT: external ear and nose normal, oropharynx normal Neck: trachea midline, no thyromegaly Respiratory: normal respiratory effort, lungs clear to auscultation Cardiovascular: RRR, no murmur, no edema Gastrointestinal (Abdomen): normal bowel sounds, soft, nontender, no hepatosplenomegaly Skin: no rashes, warm and dry Neurologic: no face palsy, Psychiatric: not oriented to place and + not oriented to time Lymphatic: no cervical or axillary lymphadenopathy Results & Data Results & Data ([facility]) Vital Signs (Past 12 Hours) Vital Signs Temp Pulse Resp BP Pulse Ox 02/19/21 14:44 36.8 C 73 16 126/63 96 02/19/21 08:32 36.2 C L 81 16 125/81 95 PG Care Time/CCT Total # of Minutes Spent Total Time Spent with Patient: Total time spent is greater than 50% in coordination of care (as documented) at patient's floor/unit and/or counseling patient: Coding Level of Care Code 33407 Subseq Hosp Care Lvl 2 Diagnoses Unable to care for self Z78.9 Alzheimer disease G30.9; F02.80 Type 2 diabetes mellitus E11.9 Diabetes mellitus senior living insulin use: without senior living use Diabetes mellitus complication status: without complication Discharge planning issues Z02.9 DVT prophylaxis Z29.9 (1) Type 2 diabetes mellitus Diabetes mellitus senior living insulin use: without terminologist use Diabetes mellitus complication status: without complication Qualified Code(s): E11.9 - Type 2 diabetes mellitus without complications
[2021-02-20] MEDS: HYOSCYAMINE SULFATE 0.125 MG TAB PO SCH ×5 (00:41→23:39)
[2021-02-20] MEDS: LEVOTHYROXINE SODIUM 112 MCG TABLET PO SCH (05:31)
[2021-02-20] MEDS: LORazepam 1 MG TAB PO SCH ×2 (06:58→20:05)
[2021-02-20] MEDS: PSYLLIUM 58.6% POWDER PACKET PO SCH (06:59)
[2021-02-20] MEDS: amLODIPine BESYLATE 5 MG TAB PO SCH (06:59)
[2021-02-20] MEDS: DOCUSATE SODIUM 100 MG CAP PO SCH ×2 (06:59→20:05)
[2021-02-20] MEDS: DONEPEZIL HCL 10 MG TAB PO SCH (06:59)
[2021-02-20] MEDS: MELOXICAM 7.5 MG TAB PO SCH (06:59)
[2021-02-20] MEDS: MEMANTINE HCL 10 MG TAB PO SCH (06:59)
[2021-02-20] MEDS: PANTOprazole 40 MG TAB PO SCH (06:59)
[2021-02-20] MEDS: MULTIVITAMIN TAB PO SCH (06:59)
--- NOTE | 2021-02-20 19:27 | Hospitalist Progress Note ---
Date of Service February 20, 2021 Assessment & Plan (1) Unable to care for self: Plan: In being able to gather more information of the situation, it sounds like quickly her home situation deteriorated to where it was no longer safe and she had no supervision. Unfortunately she will need to be placed. Awaiting placement. chart reviewed (2) Alzheimer disease: Plan: Appears severe and progressed. Nothing appears acute (3) Type 2 diabetes mellitus: Plan: Because of her severe dementia, certainly I would not advocate for any type of tight glycemic control, mostly just trying to keep her out of any hyperglycemic dehydration. No need for specific intervention at this time (4) Discharge planning issues: Plan: PT/OT eval and treat, placement will be the goal (5) DVT prophylaxis: Plan: ambulation Admission and Anticipated Discharge Date Admission Date: February 14, 2021 Subjective 75 yo female laying in bed comfortably. Does not provide significant history. Review of Systems Review of Systems: Unobtainable due to cognitive status Physical Exam Physical Exam: Constitutional: well developed, no acute distress Eyes: PERRL, conjunctivae normal, anicteric sclerae ENMT: external ear and nose normal, oropharynx normal Neck: trachea midline, no thyromegaly Respiratory: normal respiratory effort, lungs clear to auscultation Cardiovascular: RRR, no murmur, no edema Gastrointestinal (Abdomen): normal bowel sounds, soft, nontender, no hepatosplenomegaly Skin: no rashes, warm and dry Neurologic: no face palsy, Psychiatric: not oriented to place and + not oriented to time Lymphatic: no cervical or axillary lymphadenopathy Results & Data Results & Data ([facility]) Vital Signs (Past 12 Hours) Vital Signs Temp Pulse Resp BP Pulse Ox 02/20/21 15:21 36.6 C 78 17 137/78 96 PG Care Time/CCT Total # of Minutes Spent Total Time Spent with Patient: Total time spent is greater than 50% in coordination of care (as documented) at patient's floor/unit and/or counseling patient: Coding Level of Care Code 43801 Subseq Hosp Care Lvl 1 Diagnoses Unable to care for self Z78.9 Alzheimer disease G30.9; F02.80 Type 2 diabetes mellitus E11.9 Diabetes mellitus diplomatic interpreter insulin use: without diplomatic interpreter use Diabetes mellitus complication status: without complication Discharge planning issues Z02.9 DVT prophylaxis Z29.9 (1) Type 2 diabetes mellitus Diabetes mellitus diplomatic interpreter insulin use: without skilled nursing use Diabetes mellitus complication status: without complication Qualified Code(s): E11.9 - Type 2 diabetes mellitus without complications
[2021-02-21] MEDS: HYOSCYAMINE SULFATE 0.125 MG TAB PO SCH ×3 (05:25→17:50)
[2021-02-21] MEDS: LEVOTHYROXINE SODIUM 112 MCG TABLET PO SCH (05:25)
[2021-02-21] MEDS: PSYLLIUM 58.6% POWDER PACKET PO SCH (08:04)
[2021-02-21] MEDS: DOCUSATE SODIUM 100 MG CAP PO SCH ×2 (08:04→20:04)
[2021-02-21] MEDS: PANTOprazole 40 MG TAB PO SCH (08:50)
[2021-02-21] MEDS: MELOXICAM 7.5 MG TAB PO SCH (08:50)
[2021-02-21] MEDS: DONEPEZIL HCL 10 MG TAB PO SCH (08:50)
[2021-02-21] MEDS: MULTIVITAMIN TAB PO SCH (08:50)
[2021-02-21] MEDS: MEMANTINE HCL 10 MG TAB PO SCH (08:50)
[2021-02-21] MEDS: amLODIPine BESYLATE 5 MG TAB PO SCH (08:51)
[2021-02-21] MEDS: LORazepam 1 MG TAB PO SCH ×2 (08:53→20:04)
--- NOTE | 2021-02-21 21:05 | Hospitalist Progress Note ---
Date of Service February 21, 2021 Assessment & Plan (1) Unable to care for self: Plan: In being able to gather more information of the situation, it sounds like quickly her home situation deteriorated to where it was no longer safe and she had no supervision. Unfortunately she will need to be placed. Awaiting placement. chart reviewed (2) Alzheimer disease: Plan: Appears severe and progressed. Nothing appears acute (3) Type 2 diabetes mellitus: Plan: Because of her severe dementia, certainly I would not advocate for any type of tight glycemic control, mostly just trying to keep her out of any hyperglycemic dehydration. No need for specific intervention at this time (4) Discharge planning issues: Plan: PT/OT eval and treat, placement will be the goal (5) DVT prophylaxis: Plan: ambulation Admission and Anticipated Discharge Date Admission Date: February 14, 2021 Subjective 75 yo female laying in bed comfortably. Does not provide significant history. Review of Systems Review of Systems: All systems reviewed & are unremarkable except as noted in HPI & below Physical Exam Physical Exam: Constitutional: well developed, no acute distress Eyes: PERRL, conjunctivae normal, anicteric sclerae ENMT: external ear and nose normal, oropharynx normal Neck: trachea midline, no thyromegaly Respiratory: normal respiratory effort, lungs clear to auscultation Cardiovascular: RRR, no murmur, no edema Gastrointestinal (Abdomen): normal bowel sounds, soft, nontender, no hepatosplenomegaly Skin: no rashes, warm and dry Neurologic: no face palsy, Psychiatric: not oriented to place and + not oriented to time Lymphatic: no cervical or axillary lymphadenopathy Results & Data Results & Data ([facility]) Vital Signs (Past 12 Hours) Vital Signs Temp Pulse Resp BP Pulse Ox 02/21/21 16:59 36.5 C 64 18 133/90 92 PG Care Time/CCT Total # of Minutes Spent Total Time Spent with Patient: Total time spent is greater than 50% in coordination of care (as documented) at patient's floor/unit and/or counseling patient: Coding Level of Care Code 77810 Subseq Hosp Care Lvl 1 Diagnoses Unable to care for self Z78.9 Alzheimer disease G30.9; F02.80 Type 2 diabetes mellitus E11.9 Diabetes mellitus extermination inspector insulin use: without extermination inspector use Diabetes mellitus complication status: without complication Discharge planning issues Z02.9 DVT prophylaxis Z29.9 (1) Type 2 diabetes mellitus Diabetes mellitus skilled nursing insulin use: without skilled nursing use Diabetes mellitus complication status: without complication Qualified Code(s): E11.9 - Type 2 diabetes mellitus without complications
[2021-02-22] MEDS: HYOSCYAMINE SULFATE 0.125 MG TAB PO SCH ×5 (00:46→23:55)
[2021-02-22] MEDS: LEVOTHYROXINE SODIUM 112 MCG TABLET PO SCH (05:14)
[2021-02-22] MEDS: PSYLLIUM 58.6% POWDER PACKET PO SCH (08:52)
[2021-02-22] MEDS: DOCUSATE SODIUM 100 MG CAP PO SCH ×2 (08:53→20:38)
[2021-02-22] MEDS: amLODIPine BESYLATE 5 MG TAB PO SCH (09:18)
[2021-02-22] MEDS: MEMANTINE HCL 10 MG TAB PO SCH (09:19)
[2021-02-22] MEDS: DONEPEZIL HCL 10 MG TAB PO SCH (09:19)
[2021-02-22] MEDS: MELOXICAM 7.5 MG TAB PO SCH (09:19)
[2021-02-22] MEDS: PANTOprazole 40 MG TAB PO SCH (09:19)
[2021-02-22] MEDS: MULTIVITAMIN TAB PO SCH (09:19)
[2021-02-22] MEDS: LORazepam 1 MG TAB PO SCH ×2 (09:26→20:38)
--- NOTE | 2021-02-22 21:14 | Hospitalist Progress Note ---
Date of Service February 22, 2021 Assessment & Plan (1) Unable to care for self: Plan: In being able to gather more information of the situation, it sounds like quickly her home situation deteriorated to where it was no longer safe and she had no supervision. Patient is more awake and was not incontinent today. She appears to be close to her baseline. Unfortunately she will still need to be placed. Awaiting placement. chart reviewed (2) Alzheimer disease: Plan: Appears severe and progressed. Nothing appears acute (3) Type 2 diabetes mellitus: Plan: Because of her severe dementia, certainly I would not advocate for any type of tight glycemic control, mostly just trying to keep her out of any hyperglycemic dehydration. No need for specific intervention at this time (4) Discharge planning issues: Plan: PT/OT eval and treat, placement will be the goal (5) DVT prophylaxis: Plan: ambulation (6) Severe protein-calorie malnutrition: Plan: severe protein-calorie malnutrition Clinical Indicators: Patient with BMI of 19 has documented 13.8% weight loss in past 4 months and requires feeding assistance per RD consult. Risk Factor(s): Dementia, low BMI, unable to feed self Treatment: provide feeding assistance, high protein supplements, I&O, weights Admission and Anticipated Discharge Date Admission Date: February 14, 2021 Subjective Patient was found sitting u. She was eating her food with assistance and took her pills. The nurse explained that patient was continent and able to use the toilet today. Review of Systems Review of Systems: Unobtainable due to cognitive status Physical Exam Physical Exam: Constitutional: well developed, no acute distress Eyes: PERRL, conjunctivae normal, anicteric sclerae ENMT: external ear and nose normal, oropharynx normal Neck: trachea midline, no thyromegaly Respiratory: normal respiratory effort, lungs clear to auscultation Cardiovascular: RRR, no murmur, no edema Gastrointestinal (Abdomen): normal bowel sounds, soft, nontender, no hepatosplenomegaly Skin: no rashes, warm and dry Neurologic: no face palsy, Psychiatric: not oriented to place and + not oriented to time Lymphatic: no cervical or axillary lymphadenopathy Results & Data Results & Data ([facility]) Vital Signs (Past 12 Hours) Vital Signs Temp Pulse Resp BP Pulse Ox 02/22/21 16:16 36.3 C L 66 14 132/74 97 PG Care Time/CCT Total # of Minutes Spent Total Time Spent with Patient: Total time spent is greater than 50% in coordination of care (as documented) at patient's floor/unit and/or counseling patient: Coding Level of Care Code 00235 Subseq Hosp Care Lvl 2 Diagnoses Unable to care for self Z78.9 Alzheimer disease G30.9; F02.80 Type 2 diabetes mellitus E11.9 Diabetes mellitus ad terminal makeup operator insulin use: without chcf use Diabetes mellitus complication status: without complication Discharge planning issues Z02.9 DVT prophylaxis Z29.9 Severe protein-calorie malnutrition E43 (1) Type 2 diabetes mellitus Diabetes mellitus ad terminal makeup operator insulin use: without ad terminal makeup operator use Diabetes mellitus complication status: without complication Qualified Code(s): E11.9 - Type 2 diabetes mellitus without complications
[2021-02-23] MEDS: HYOSCYAMINE SULFATE 0.125 MG TAB PO SCH ×3 (04:55→23:36)
[2021-02-23] MEDS: LEVOTHYROXINE SODIUM 112 MCG TABLET PO SCH (04:56)
[2021-02-23] MEDS: LORazepam 1 MG TAB PO SCH ×2 (09:53→20:18)
[2021-02-23] MEDS: MEMANTINE HCL 10 MG TAB PO SCH (09:53)
[2021-02-23] MEDS: PSYLLIUM 58.6% POWDER PACKET PO SCH (09:54)
[2021-02-23] MEDS: amLODIPine BESYLATE 5 MG TAB PO SCH (09:54)
[2021-02-23] MEDS: MULTIVITAMIN TAB PO SCH (09:54)
[2021-02-23] MEDS: DONEPEZIL HCL 10 MG TAB PO SCH (09:54)
[2021-02-23] MEDS: DOCUSATE SODIUM 100 MG CAP PO SCH ×2 (09:54→20:18)
[2021-02-23] MEDS: PANTOprazole 40 MG TAB PO SCH (09:54)
[2021-02-23] MEDS: MELOXICAM 7.5 MG TAB PO SCH (09:55)
--- NOTE | 2021-02-23 11:27 | Hospitalist Progress Note ---
Date of Service February 23, 2021 Assessment & Plan (1) Unable to care for self: Plan: - Home situation quickly deteriorated and does not have the adequate services to allow her to stay at home safely -- Appears had services through [facility] but some due to staffing shortages, made this difficult -- Daughter who is POA appears to have been incarcerated and grandson unable to fully assist with patients needs - Awaiting placement - appreciate case managements input - Appears at baseline mentation (2) Alzheimer disease: Plan: - Appears severe and progressed. Nothing appears acute - Continue Donepezil 10 mg daily and Memantine 20 mg daily; Haldol PRN (3) Type 2 diabetes mellitus: Plan: - Because of her severe dementia, certainly I would not advocate for any type of tight glycemic control, mostly just trying to keep her out of any hyperglycemic dehydration. No need for specific intervention at this time - A1c 8.8 in December 2019; will recheck (4) Severe protein-calorie malnutrition: Plan: severe protein-calorie malnutrition Clinical Indicators: Patient with BMI of 19 has documented 13.8% weight loss in past 4 months and requires feeding assistance per RD consult. Risk Factor(s): Dementia, low BMI, unable to feed self Treatment: provide feeding assistance, high protein supplements, I&O, weights (5) Hypothyroid: Plan: - Last TSH check was low - repeat in AM to assess for medication adjustments - Given dementia and uncertainty of compliance in home environment - Continue Levothyroxine 112 mcg daily for now (6) Hypertension: Plan: - STABLE - Continue Amlodipine 5 mg daily (7) DVT prophylaxis: Plan: - Ambulation Plan: - Appreciate case management assistance with placement; unsafe to return home - Would be medically stable for discharge pending placement arrangement Admission and Anticipated Discharge Date Admission Date: February 14, 2021 Subjective Verbalizes no complaints at this time. Not very conversant. Will open eyes to verbal stimuli. She appears comfortable. Review of Systems Review of Systems: Unobtainable due to cognitive status Physical Exam Physical Exam: PHYSICAL EXAM General Appearance: Elderly woman NAD who is mostly resting but easily opens eyes to verbal stimuli HEENT: Head is normocephalic/atraumatic; hard of hearing Neck: Supple; Trachea midline; Neg JVD Heart: RRR with no M/G/R Lungs: CTA in all lung patel bilaterally; Respirations unlabored; Neg accessory muscle use Abdomen: Soft, non-tender, non-distended; Positive BS x 4 quadrants Extremities: Neg cyanosis or edema Neurological: Neg focal neurologic deficits Psychiatric: Drowsy; chronic dementia Skin: Normal Color; Warm/Dry Results & Data Results & Data ([facility]) Vital Signs (Past 12 Hours) Vital Signs Temp Pulse Resp BP Pulse Ox 02/23/21 07:56 36.4 C L 61 16 136/67 98 PG Care Time/CCT Total # of Minutes Spent Total Time Spent with Patient: Total time spent is greater than 50% in coordination of care (as documented) at patient's floor/unit and/or counseling patient: Coding Level of Care Code 52832 Subseq Hosp Care Lvl 2 Diagnoses Unable to care for self Z78.9 Alzheimer disease G30.9; F02.80 Type 2 diabetes mellitus E11.9 Diabetes mellitus intermodal dispatcher insulin use: without intermodal dispatcher use Diabetes mellitus complication status: without complication DVT prophylaxis Z29.9 Severe protein-calorie malnutrition E43 Hypothyroid E03.9 Hypothyroidism type: unspecified Hypertension I10 Hypertension type: essential hypertension (1) Type 2 diabetes mellitus Diabetes mellitus group home insulin use: without group home use Diabetes mellitus complication status: without complication Qualified Code(s): E11.9 - Type 2 diabetes mellitus without complications (2) Hypothyroid Hypothyroidism type: unspecified Qualified Code(s): E03.9 - Hypothyroidism, unspecified (3) Hypertension Hypertension type: essential hypertension Qualified Code(s): I10 - Essential (primary) hypertension
[2021-02-24] MEDS: HYOSCYAMINE SULFATE 0.125 MG TAB PO SCH ×3 (05:48→17:36)
[2021-02-24] MEDS: LEVOTHYROXINE SODIUM 112 MCG TABLET PO SCH (05:48)
[2021-02-24 06:54] LABS: Estimated Average Glucose 200 mg/dl; Hemoglobin A1C 8.6 % (4.5-5.6)
[2021-02-24 07:11] LABS: BUN Creatinine Ratio 35.6 (10-20); Calcium 9.3 mg/dl (8.5-10.1); Est GFR (African American) 71.5 ml/min; Est GFR (Non-African American) 61.7 ml/min
[2021-02-24 07:24] LABS: Thyroid Stimulating Hormone 2.19 uIu/ml (0.300-4.500)
[2021-02-24] MEDS: PSYLLIUM 58.6% POWDER PACKET PO SCH (08:49)
[2021-02-24] MEDS: MELOXICAM 7.5 MG TAB PO SCH (08:50)
[2021-02-24] MEDS: MULTIVITAMIN TAB PO SCH (08:50)
[2021-02-24] MEDS: DOCUSATE SODIUM 100 MG CAP PO SCH ×2 (08:50→19:49)
[2021-02-24] MEDS: MEMANTINE HCL 10 MG TAB PO SCH (08:50)
[2021-02-24] MEDS: amLODIPine BESYLATE 5 MG TAB PO SCH (08:50)
[2021-02-24] MEDS: PANTOprazole 40 MG TAB PO SCH (08:50)
[2021-02-24] MEDS: DONEPEZIL HCL 10 MG TAB PO SCH (08:51)
[2021-02-24] MEDS: LORazepam 1 MG TAB PO SCH ×2 (08:52→19:49)
--- NOTE | 2021-02-24 10:13 | Hospitalist Progress Note ---
Date of Service February 24, 2021 Assessment & Plan (1) Unable to care for self: Plan: - Home situation quickly deteriorated and does not have the adequate services to allow her to stay at home safely -- Appears had services through [facility] but some due to staffing shortages, made this difficult -- Daughter who is POA appears to have been incarcerated and grandson unable to fully assist with patients needs - Awaiting placement - appreciate case managements input - Appears at baseline mentation (2) Alzheimer disease: Plan: - Appears severe and progressed. Nothing appears acute - Continue Donepezil 10 mg daily and Memantine 20 mg daily; Haldol PRN (3) Type 2 diabetes mellitus: Plan: - Because of her severe dementia, certainly I would not advocate for any type of tight glycemic control, mostly just trying to keep her out of any hyperglycemic dehydration. No need for specific intervention at this time - A1c 8.8 in December 2019; and currently down to 8.6 -- Appears to be slowly improving without intervention and would suspect oral intake could gradually decrease placing her at risk for hypoglycemia and falls especially in the setting of advanced dementia (4) Severe protein-calorie malnutrition: Plan: severe protein-calorie malnutrition Clinical Indicators: Patient with BMI of 19 has documented 13.8% weight loss in past 4 months and requires feeding assistance per RD consult. Risk Factor(s): Dementia, low BMI, unable to feed self Treatment: provide feeding assistance, high protein supplements, I&O, weights (5) Hypothyroid: Plan: - Last TSH check was low - repeat this admission is WNL - Continue Levothyroxine 112 mcg daily (6) Hypertension: Plan: - STABLE - Continue Amlodipine 5 mg daily (7) DVT prophylaxis: Plan: - Ambulation Plan: - Appreciate case management assistance with placement; unsafe to return home - Would be medically stable for discharge pending placement arrangement Admission and Anticipated Discharge Date Admission Date: February 14, 2021 Subjective Pt is sitting up in bed upon entering. Appears comfortable. Very [place]. Verbalizes no complaints - no pain, no nausea/vomiting. Eating meals with assistance. Is only oriented to self. Review of Systems Review of Systems: All systems reviewed & are unremarkable except as noted in Subjective Physical Exam Physical Exam: PHYSICAL EXAM General Appearance: Elderly woman in NAD HEENT: Head is normocephalic/atraumatic; hard of hearing Neck: Supple; Trachea midline; Neg JVD Heart: RRR with no M/G/R Lungs: CTA in all lung patel bilaterally; Respirations unlabored; Neg accessory muscle use Abdomen: Soft, non-tender, non-distended; Positive BS x 4 quadrants Extremities: Neg cyanosis or edema Psychiatric: Pleasant Skin: Normal Color; Warm/Dry Results & Data Results & Data ([facility]) Vital Signs (Past 12 Hours) Vital Signs Temp Pulse Resp BP Pulse Ox 02/24/21 06:26 36.4 C L 66 18 134/79 97 02/23/21 22:56 36.8 C 84 17 118/60 96 PG Care Time/CCT Total # of Minutes Spent Total Time Spent with Patient: Total time spent is greater than 50% in coordination of care (as documented) at patient's floor/unit and/or counseling patient: Coding Level of Care Code 56228 Subseq Hosp Care Lvl 2 Diagnoses Unable to care for self Z78.9 Alzheimer disease G30.9; F02.80 Type 2 diabetes mellitus E11.9 Diabetes mellitus fpc insulin use: without fpc use Diabetes mellitus complication status: without complication Severe protein-calorie malnutrition E43 Hypothyroid E03.9 Hypothyroidism type: unspecified Hypertension I10 Hypertension type: essential hypertension DVT prophylaxis Z29.9 (1) Type 2 diabetes mellitus Diabetes mellitus fpc insulin use: without fpc use Diabetes mellitus complication status: without complication Qualified Code(s): E11.9 - Type 2 diabetes mellitus without complications (2) Hypothyroid Hypothyroidism type: unspecified Qualified Code(s): E03.9 - Hypothyroidism, unspecified (3) Hypertension Hypertension type: essential hypertension Qualified Code(s): I10 - Essential (primary) hypertension
[2021-02-25] MEDS: HYOSCYAMINE SULFATE 0.125 MG TAB PO SCH ×4 (00:28→17:13)
[2021-02-25] MEDS: LEVOTHYROXINE SODIUM 112 MCG TABLET PO SCH (05:30)
[2021-02-25] MEDS: MEMANTINE HCL 10 MG TAB PO SCH (08:38)
[2021-02-25] MEDS: DOCUSATE SODIUM 100 MG CAP PO SCH ×2 (08:38→20:54)
[2021-02-25] MEDS: DONEPEZIL HCL 10 MG TAB PO SCH (08:38)
[2021-02-25] MEDS: MULTIVITAMIN TAB PO SCH (08:38)
[2021-02-25] MEDS: amLODIPine BESYLATE 5 MG TAB PO SCH (08:39)
[2021-02-25] MEDS: PSYLLIUM 58.6% POWDER PACKET PO SCH (08:39)
[2021-02-25] MEDS: MELOXICAM 7.5 MG TAB PO SCH (08:39)
[2021-02-25] MEDS: PANTOprazole 40 MG TAB PO SCH (08:39)
[2021-02-25] MEDS: LORazepam 1 MG TAB PO SCH ×2 (08:42→20:54)
--- NOTE | 2021-02-25 12:43 | Hospitalist Progress Note ---
Date of Service February 25, 2021 Assessment & Plan (1) Unable to care for self: Plan: - Home situation quickly deteriorated and does not have the adequate services to allow her to stay at home safely -- Appears had services through [facility] but due to staffing shortages, made this difficult -- Daughter who is POA appears to have been incarcerated and grandson unable to fully assist with patients needs - Awaiting placement - appreciate case managements input - Appears at baseline mentation (2) Alzheimer disease: Plan: - Appears severe and progressed. Nothing appears acute - Continue Donepezil 10 mg daily and Memantine 20 mg daily; Haldol PRN (3) Type 2 diabetes mellitus: Plan: - Because of her severe dementia, certainly I would not advocate for any type of tight glycemic control, mostly just trying to keep her out of any hyperglycemic dehydration. No need for specific intervention at this time - A1c 8.8 in December 2019; and currently down to 8.6 -- Appears to be slowly improving without intervention and would suspect oral intake could gradually decrease placing her at risk for hypoglycemia and falls especially in the setting of advanced dementia (4) Severe protein-calorie malnutrition: Plan: severe protein-calorie malnutrition Clinical Indicators: Patient with BMI of 19 has documented 13.8% weight loss in past 4 months and requires feeding assistance per RD consult. Risk Factor(s): Dementia, low BMI, unable to feed self Treatment: provide feeding assistance, high protein supplements, I&O, weights (5) Hypothyroid: Plan: - Last TSH check was low - repeat this admission is WNL - Continue Levothyroxine 112 mcg daily (6) Hypertension: Plan: - STABLE - Continue Amlodipine 5 mg daily (7) DVT prophylaxis: Plan: - Ambulation Plan: - Appreciate case management assistance with placement; unsafe to return home - Would be medically stable for discharge pending placement arrangement Admission and Anticipated Discharge Date Admission Date: February 14, 2021 Subjective Patient is resting comfortably upon entering room. Very [place] but pleasant and cooperative. Speaks very little but reports no complaints. Review of Systems Review of Systems: Unobtainable due to cognitive status Physical Exam Physical Exam: PHYSICAL EXAM General Appearance: Elderly woman in NAD HEENT: Head is normocephalic/atraumatic; hard of hearing Neck: Supple; Trachea midline Extremities: Neg cyanosis or edema Psychiatric: Pleasant Skin: Normal Color; Warm/Dry Results & Data Results & Data ([facility]) Vital Signs (Past 12 Hours) Vital Signs Temp Pulse Resp BP Pulse Ox 02/25/21 07:50 36.4 C L 84 14 154/87 H 93 PG Care Time/CCT Total # of Minutes Spent Total Time Spent with Patient: Total time spent is greater than 50% in coordination of care (as documented) at patient's floor/unit and/or counseling patient: Coding Level of Care Code 00291 Subseq Hosp Care Lvl 2 Diagnoses Unable to care for self Z78.9 Alzheimer disease G30.9; F02.80 Type 2 diabetes mellitus E11.9 Diabetes mellitus ferry terminal supervisor insulin use: without ferry terminal supervisor use Diabetes mellitus complication status: without complication Severe protein-calorie malnutrition E43 Hypothyroid E03.9 Hypothyroidism type: unspecified Hypertension I10 Hypertension type: essential hypertension DVT prophylaxis Z29.9 (1) Type 2 diabetes mellitus Diabetes mellitus ferry terminal supervisor insulin use: without assisted use Diabetes mellitus complication status: without complication Qualified Code(s): E11.9 - Type 2 diabetes mellitus without complications (2) Hypothyroid Hypothyroidism type: unspecified Qualified Code(s): E03.9 - Hypothyroidism, unspecified (3) Hypertension Hypertension type: essential hypertension Qualified Code(s): I10 - Essential (primary) hypertension
[2021-02-26] MEDS: HYOSCYAMINE SULFATE 0.125 MG TAB PO SCH ×4 (00:14→17:58)
[2021-02-26] MEDS: LEVOTHYROXINE SODIUM 112 MCG TABLET PO SCH (05:16)
--- NOTE | 2021-02-26 07:59 | Hospitalist Progress Note ---
Date of Service February 26, 2021 Assessment & Plan (1) Unable to care for self: Plan: - Home situation quickly deteriorated and does not have the adequate services to allow her to stay at home safely -- Appears had services through [facility] but due to staffing shortages, made this difficult -- Daughter who is POA appears to have been incarcerated and grandson unable to fully assist with patients needs - Awaiting placement - appreciate case managements input - Appears at baseline mentation (2) Alzheimer disease: Plan: - Appears severe and progressed. Nothing appears acute - Continue Donepezil 10 mg daily and Memantine 20 mg daily; Haldol PRN (3) Type 2 diabetes mellitus: Plan: - Because of her severe dementia, certainly I would not advocate for any type of tight glycemic control, mostly just trying to keep her out of any hyperglycemic dehydration. No need for specific intervention at this time - A1c 8.8 in December 2019; and currently down to 8.6 -- Appears to be slowly improving without intervention and would suspect oral intake could gradually decrease placing her at risk for hypoglycemia and falls especially in the setting of advanced dementia (4) Severe protein-calorie malnutrition: Plan: severe protein-calorie malnutrition Clinical Indicators: Patient with BMI of 19 has documented 13.8% weight loss in past 4 months and requires feeding assistance per RD consult. Risk Factor(s): Dementia, low BMI, unable to feed self Treatment: provide feeding assistance, high protein supplements, I&O, weights (5) Hypothyroid: Plan: - Last TSH check was low - repeat this admission is WNL - Continue Levothyroxine 112 mcg daily (6) Hypertension: Plan: - STABLE - Continue Amlodipine 5 mg daily (7) DVT prophylaxis: Plan: - Ambulation Plan: - Appreciate case management assistance with placement; unsafe to return home - Would be medically stable for discharge pending placement arrangement Admission and Anticipated Discharge Date Admission Date: February 14, 2021 Subjective Patient is resting comfortably upon entering room. Very [place] but pleasant and cooperative. seems comfortable Review of Systems Review of Systems: Mild distress and fatigue no headache, no visual changes very hard of hearing no speech or swallowing issues no chest pain, pressure or palpitations no shortness of breath, cough or wheezes no abdominal pain, nausea or vomiting, no focal joint pain or swelling no back pain Physical Exam Physical Exam: The patient appeared stated age no complaints Vital signs as documented. Head exam is normocephalic atraumatic Neck is without JVD, thyromegaly, or carotid bruits. Lungs are clear to auscultation, no focal loss of breath sounds Cardiac exam, Rhythm is regular.. No murmurs, rubs or gallops. Abdominal exam reveals normal bowel sounds, soft non tender, no masses Extremities are nonedematous and both pedal pulses are present Skin is without bruises or rashes Results & Data Results & Data ([facility]) Vital Signs (Past 12 Hours) Vital Signs Temp Pulse Resp BP Pulse Ox 02/26/21 07:57 97.2 F L 62 16 129/80 98 02/25/21 23:40 97.9 F 67 17 122/63 97 PG Care Time/CCT Total # of Minutes Spent Total Time Spent with Patient: Total time spent is greater than 50% in coordination of care (as documented) at patient's floor/unit and/or counseling patient: Coding Level of Care Code 63315 Subseq Hosp Care Lvl 1 Diagnoses Unable to care for self Z78.9 Alzheimer disease G30.9; F02.80 Type 2 diabetes mellitus E11.9 Diabetes mellitus complication status: without complication Diabetes mellitus predatory animal exterminator insulin use: without predatory animal exterminator use Severe protein-calorie malnutrition E43 Hypothyroid E03.9 Hypothyroidism type: unspecified Hypertension I10 Hypertension type: essential hypertension DVT prophylaxis Z29.9 (1) Type 2 diabetes mellitus Diabetes mellitus complication status: without complication Diabetes mellitus jail insulin use: without predatory animal exterminator use Qualified Code(s): E11.9 - Type 2 diabetes mellitus without complications (2) Hypothyroid Hypothyroidism type: unspecified Qualified Code(s): E03.9 - Hypothyroidism, unspecified (3) Hypertension Hypertension type: essential hypertension Qualified Code(s): I10 - Essential (primary) hypertension
[2021-02-26] MEDS: MULTIVITAMIN TAB PO SCH (09:47)
[2021-02-26] MEDS: DOCUSATE SODIUM 100 MG CAP PO SCH ×2 (09:48→20:40)
[2021-02-26] MEDS: DONEPEZIL HCL 10 MG TAB PO SCH (09:48)
[2021-02-26] MEDS: MELOXICAM 7.5 MG TAB PO SCH (09:48)
[2021-02-26] MEDS: PANTOprazole 40 MG TAB PO SCH (09:48)
[2021-02-26] MEDS: MEMANTINE HCL 10 MG TAB PO SCH (09:48)
[2021-02-26] MEDS: amLODIPine BESYLATE 5 MG TAB PO SCH (09:48)
[2021-02-26] MEDS: PSYLLIUM 58.6% POWDER PACKET PO SCH (09:49)
[2021-02-26] MEDS: LORazepam 1 MG TAB PO SCH ×2 (09:54→20:40)
[2021-02-27] MEDS: HYOSCYAMINE SULFATE 0.125 MG TAB PO SCH ×4 (00:14→17:29)
[2021-02-27] MEDS: LEVOTHYROXINE SODIUM 112 MCG TABLET PO SCH (05:40)
[2021-02-27] MEDS: PSYLLIUM 58.6% POWDER PACKET PO SCH (09:04)
[2021-02-27] MEDS: amLODIPine BESYLATE 5 MG TAB PO SCH (09:04)
[2021-02-27] MEDS: MULTIVITAMIN TAB PO SCH (09:04)
[2021-02-27] MEDS: DOCUSATE SODIUM 100 MG CAP PO SCH ×2 (09:05→20:49)
[2021-02-27] MEDS: DONEPEZIL HCL 10 MG TAB PO SCH (09:05)
[2021-02-27] MEDS: PANTOprazole 40 MG TAB PO SCH (09:05)
[2021-02-27] MEDS: MELOXICAM 7.5 MG TAB PO SCH (09:05)
[2021-02-27] MEDS: MEMANTINE HCL 10 MG TAB PO SCH (09:05)
[2021-02-27] MEDS: LORazepam 1 MG TAB PO SCH ×2 (09:17→20:49)
--- NOTE | 2021-02-27 13:52 | Hospitalist Progress Note ---
Date of Service February 27, 2021 Assessment & Plan (1) Unable to care for self: Plan: - Home situation quickly deteriorated and does not have the adequate services to allow her to stay at home safely -- Appears had services through [facility] but due to staffing shortages, made this difficult -- Daughter who is POA appears to have been incarcerated and grandson unable to fully assist with patients needs - Awaiting placement - appreciate case managements input - Appears at baseline mentation no complaints 02/27/21 (2) Alzheimer disease: Plan: - Appears severe. Nothing appears acute - Continue Donepezil 10 mg daily and Memantine 20 mg daily; Haldol PRN (3) Type 2 diabetes mellitus: Plan: - Because of her severe dementia, - A1c 8.8 in December 2019; and currently down to 8.6 -- Appears to be slowly improving without intervention and would suspect oral intake could gradually decrease placing her at risk for hypoglycemia and falls especially in the setting of advanced dementia (4) Severe protein-calorie malnutrition: Plan: severe protein-calorie malnutrition Clinical Indicators: Patient with BMI of 19 has documented 13.8% weight loss in past 4 months and requires feeding assistance per RD consult. Risk Factor(s): Dementia, low BMI, unable to feed self Treatment: provide feeding assistance, high protein supplements, I&O, weights (5) Hypothyroid: Plan: - Last TSH check was low - repeat this admission is WNL - Continue Levothyroxine 112 mcg daily (6) Hypertension: Plan: - STABLE - Continue Amlodipine 5 mg daily (7) DVT prophylaxis: Plan: - Ambulation Plan: - Appreciate case management assistance with placement; unsafe to return home - Would be medically stable for discharge pending placement arrangement Admission and Anticipated Discharge Date Admission Date: February 14, 2021 Subjective Patient is resting comfortably upon entering room. Very [place] but pleasant and cooperative. seems comfortable no new changes on 02/27/21 Review of Systems Review of Systems: Mild distress and fatigue no headache, no visual changes very hard of hearing no speech or swallowing issues no chest pain, pressure or palpitations no shortness of breath, cough or wheezes no abdominal pain, nausea or vomiting, no focal joint pain or swelling no back pain Physical Exam Physical Exam: The patient appeared stated age no complaints Vital signs as documented. Head exam is normocephalic atraumatic Neck is without JVD, thyromegaly, or carotid bruits. Lungs are clear to auscultation, no focal loss of breath sounds Cardiac exam, Rhythm is regular.. No murmurs, rubs or gallops. Abdominal exam reveals normal bowel sounds, soft non tender, no masses Extremities are nonedematous and both pedal pulses are present Skin is without bruises or rashes Results & Data Results & Data ([facility]) Vital Signs (Past 12 Hours) Vital Signs Temp Pulse Resp BP Pulse Ox 02/27/21 09:04 98.2 F 52 L 16 157/69 H 96 PG Care Time/CCT Total # of Minutes Spent Total Time Spent with Patient: Total time spent is greater than 50% in coordination of care (as documented) at patient's floor/unit and/or counseling patient: Coding Level of Care Code 55294 Subseq Hosp Care Lvl 1 Diagnoses Unable to care for self Z78.9 Alzheimer disease G30.9; F02.80 Type 2 diabetes mellitus E11.9 Diabetes mellitus termite control servicer insulin use: without detention use Diabetes mellitus complication status: without complication Severe protein-calorie malnutrition E43 Hypothyroid E03.9 Hypothyroidism type: unspecified Hypertension I10 Hypertension type: essential hypertension DVT prophylaxis Z29.9 (1) Type 2 diabetes mellitus Diabetes mellitus termite control servicer insulin use: without termite control servicer use Diabetes mellitus complication status: without complication Qualified Code(s): E11.9 - Type 2 diabetes mellitus without complications (2) Hypothyroid Hypothyroidism type: unspecified Qualified Code(s): E03.9 - Hypothyroidism, unspecified (3) Hypertension Hypertension type: essential hypertension Qualified Code(s): I10 - Essential (primary) hypertension
[2021-02-28] MEDS: HYOSCYAMINE SULFATE 0.125 MG TAB PO SCH ×4 (00:34→17:31)
[2021-02-28] MEDS: LEVOTHYROXINE SODIUM 112 MCG TABLET PO SCH (05:37)
[2021-02-28] MEDS: DOCUSATE SODIUM 100 MG CAP PO SCH ×2 (08:46→20:47)
[2021-02-28] MEDS: amLODIPine BESYLATE 5 MG TAB PO SCH (08:46)
[2021-02-28] MEDS: LORazepam 1 MG TAB PO SCH ×2 (08:46→20:47)
[2021-02-28] MEDS: MULTIVITAMIN TAB PO SCH (08:47)
[2021-02-28] MEDS: DONEPEZIL HCL 10 MG TAB PO SCH (08:47)
[2021-02-28] MEDS: PSYLLIUM 58.6% POWDER PACKET PO SCH (08:47)
[2021-02-28] MEDS: MELOXICAM 7.5 MG TAB PO SCH (08:47)
[2021-02-28] MEDS: PANTOprazole 40 MG TAB PO SCH (08:47)
[2021-02-28] MEDS: MEMANTINE HCL 10 MG TAB PO SCH (08:47)
--- NOTE | 2021-02-28 10:48 | Hospitalist Progress Note ---
Date of Service February 28, 2021 Assessment & Plan (1) Unable to care for self: Plan: - Home situation quickly deteriorated and does not have the adequate services to allow her to stay at home safely -- Appears had services through [facility] but due to staffing shortages, made this difficult -- Daughter who is POA appears to have been incarcerated and grandson unable to fully assist with patients needs - Awaiting placement - appreciate case managements input - Appears at baseline mentation - no acute changes (2) Alzheimer disease: Plan: - Appears severe. Nothing appears acute - Continue Donepezil 10 mg daily and Memantine 20 mg daily; Haldol PRN (3) Type 2 diabetes mellitus: Plan: - A1c 8.8 in December 2019; and currently down to 8.6 -- Appears to be slowly improving without intervention and would suspect oral intake could gradually decrease placing her at risk for hypoglycemia and falls especially in the setting of advanced dementia (4) Severe protein-calorie malnutrition: Plan: severe protein-calorie malnutrition Clinical Indicators: Patient with BMI of 19 has documented 13.8% weight loss in past 4 months and requires feeding assistance per RD consult. Risk Factor(s): Dementia, low BMI, unable to feed self Treatment: provide feeding assistance, high protein supplements, I&O, weights (5) Hypothyroid: Plan: - Last TSH check was low - repeat this admission is WNL - Continue Levothyroxine 112 mcg daily (6) Hypertension: Plan: - STABLE - Continue Amlodipine 5 mg daily (7) DVT prophylaxis: Plan: - Ambulation Plan: - Appreciate case management assistance with placement; unsafe to return home - Would be medically stable for discharge pending placement arrangement Admission and Anticipated Discharge Date Admission Date: February 14, 2021 Subjective Patient is resting comfortable in bed upon entering room. Voices no concerns. Is very hard of hearing. Review of Systems Review of Systems: All systems reviewed & are unremarkable except as noted in Subjective Physical Exam Physical Exam: PHYSICAL EXAM General Appearance: Elderly woman in NAD HEENT: Head is normocephalic/atraumatic; hard of hearing Neck: Supple; Trachea midline Cardiac: RRR Lungs: CTA bilaterally Extremities: Neg cyanosis or edema Psychiatric: Pleasant Skin: Normal Color; Warm/Dry Results & Data Results & Data ([facility]) Vital Signs (Past 12 Hours) Vital Signs Temp Pulse Resp BP Pulse Ox 02/28/21 07:31 36.4 C L 82 16 148/69 H 97 PG Care Time/CCT Total # of Minutes Spent Total Time Spent with Patient: Total time spent is greater than 50% in coordination of care (as documented) at patient's floor/unit and/or counseling patient: Coding Level of Care Code 56101 Subseq Hosp Care Lvl 2 Diagnoses Unable to care for self Z78.9 Alzheimer disease G30.9; F02.80 Type 2 diabetes mellitus E11.9 Diabetes mellitus snf insulin use: without technician terminal and repeater use Diabetes mellitus complication status: without complication Severe protein-calorie malnutrition E43 Hypothyroid E03.9 Hypothyroidism type: unspecified Hypertension I10 Hypertension type: essential hypertension DVT prophylaxis Z29.9 (1) Type 2 diabetes mellitus Diabetes mellitus technician terminal and repeater insulin use: without technician terminal and repeater use Diabetes mellitus complication status: without complication Qualified Code(s): E11.9 - Type 2 diabetes mellitus without complications (2) Hypothyroid Hypothyroidism type: unspecified Qualified Code(s): E03.9 - Hypothyroidism, unspecified (3) Hypertension Hypertension type: essential hypertension Qualified Code(s): I10 - Essential (primary) hypertension
[2021-03-01] MEDS: HYOSCYAMINE SULFATE 0.125 MG TAB PO SCH ×4 (00:32→17:18)
[2021-03-01] MEDS: LEVOTHYROXINE SODIUM 112 MCG TABLET PO SCH (06:27)
[2021-03-01] MEDS: DOCUSATE SODIUM 100 MG CAP PO SCH ×2 (09:19→20:42)
[2021-03-01] MEDS: DONEPEZIL HCL 10 MG TAB PO SCH (09:19)
[2021-03-01] MEDS: MEMANTINE HCL 10 MG TAB PO SCH (09:19)
[2021-03-01] MEDS: PSYLLIUM 58.6% POWDER PACKET PO SCH (09:19)
[2021-03-01] MEDS: LORazepam 1 MG TAB PO SCH ×2 (09:19→20:41)
[2021-03-01] MEDS: amLODIPine BESYLATE 5 MG TAB PO SCH (09:19)
[2021-03-01] MEDS: PANTOprazole 40 MG TAB PO SCH (09:19)
[2021-03-01] MEDS: MELOXICAM 7.5 MG TAB PO SCH (09:19)
[2021-03-01] MEDS: MULTIVITAMIN TAB PO SCH (09:19)
--- NOTE | 2021-03-01 10:39 | Hospitalist Progress Note ---
Date of Service March 01, 2021 Assessment & Plan (1) Unable to care for self: Plan: - Home situation quickly deteriorated and does not have the adequate services to allow her to stay at home safely -- Appears had services through [facility] but due to staffing shortages, made this difficult -- Daughter who is POA appears to have been incarcerated and grandson unable to fully assist with patients needs - Awaiting placement - appreciate case managements input - Appears at baseline mentation - no acute changes (2) Alzheimer disease: Plan: - Appears severe. Nothing appears acute - Continue Donepezil 10 mg daily and Memantine 20 mg daily; Haldol PRN (has not required any dosing) (3) Type 2 diabetes mellitus: Plan: - A1c 8.8 in December 2019; and currently down to 8.6 -- Appears to be slowly improving without intervention and would suspect oral intake could gradually decrease placing her at risk for hypoglycemia and falls especially in the setting of advanced dementia - Average glucose at 200 - would not overcorrect (4) Severe protein-calorie malnutrition: Plan: severe protein-calorie malnutrition Clinical Indicators: Patient with BMI of 19 has documented 13.8% weight loss in past 4 months and requires feeding assistance per RD consult. Risk Factor(s): Dementia, low BMI, unable to feed self Treatment: provide feeding assistance, high protein supplements, I&O, weights (5) Hypothyroid: Plan: - Last TSH check was low - repeat this admission is WNL - Continue Levothyroxine 112 mcg daily (6) Hypertension: Plan: - STABLE - Continue Amlodipine 5 mg daily (7) DVT prophylaxis: Plan: - Ambulation Plan: - Appreciate case management assistance with placement; unsafe to return home - Would be medically stable for discharge pending placement arrangement - has been difficult to place; she is unvaccinated Admission and Anticipated Discharge Date Admission Date: February 14, 2021 Subjective Patient resting comfortably upon entering room. She awakens easily to verbal cues but is [place]. She reports no complaints. She is only alert to self. Review of PT notes showed she would complain of neck/abdominal pain however with asking her or pushing abdomen or neck she did not endorse any discomfort. Review of Systems Review of Systems: All systems reviewed & are unremarkable except as noted in Subjective Physical Exam Physical Exam: PHYSICAL EXAM General Appearance: Elderly woman in NAD; alert and oriented to self only HEENT: Head is normocephalic/atraumatic; hard of hearing Neck: Supple; Trachea midline Cardiac: RRR Lungs: CTA bilaterally GI: normoactive BS x 4 quadrants without grimacing or reports of pain with palpation Extremities: Neg cyanosis or edema Psychiatric: Pleasant Skin: Normal Color; Warm/Dry Results & Data Results & Data ([facility]) Vital Signs (Past 12 Hours) Vital Signs Temp Pulse Resp BP BP Pulse Ox 03/01/21 08:29 36.3 C L 54 L 16 142/80 H 98 02/28/21 23:10 36.8 C 71 18 118/75 98 PG Care Time/CCT Total # of Minutes Spent Total Time Spent with Patient: Total time spent is greater than 50% in coordination of care (as documented) at patient's floor/unit and/or counseling patient: Coding Level of Care Code 70525 Subseq Hosp Care Lvl 2 Diagnoses Unable to care for self Z78.9 Alzheimer disease G30.9; F02.80 Type 2 diabetes mellitus E11.9 Diabetes mellitus intermediate project manager insulin use: without group home use Diabetes mellitus complication status: without complication Severe protein-calorie malnutrition E43 Hypothyroid E03.9 Hypothyroidism type: unspecified Hypertension I10 Hypertension type: essential hypertension DVT prophylaxis Z29.9 (1) Type 2 diabetes mellitus Diabetes mellitus group home insulin use: without intermediate project manager use Diabetes mellitus complication status: without complication Qualified Code(s): E11.9 - Type 2 diabetes mellitus without complications (2) Hypothyroid Hypothyroidism type: unspecified Qualified Code(s): E03.9 - Hypothyroidism, unspecified (3) Hypertension Hypertension type: essential hypertension Qualified Code(s): I10 - Essential (primary) hypertension
[2021-03-02] MEDS: HYOSCYAMINE SULFATE 0.125 MG TAB PO SCH ×5 (00:53→23:54)
[2021-03-02] MEDS: LEVOTHYROXINE SODIUM 112 MCG TABLET PO SCH (05:45)
[2021-03-02] MEDS: DOCUSATE SODIUM 100 MG CAP PO SCH ×2 (09:49→21:20)
[2021-03-02] MEDS: MULTIVITAMIN TAB PO SCH (09:49)
[2021-03-02] MEDS: PANTOprazole 40 MG TAB PO SCH (09:49)
[2021-03-02] MEDS: PSYLLIUM 58.6% POWDER PACKET PO SCH (09:50)
[2021-03-02] MEDS: MELOXICAM 7.5 MG TAB PO SCH (09:51)
[2021-03-02] MEDS: MEMANTINE HCL 10 MG TAB PO SCH (09:51)
[2021-03-02] MEDS: amLODIPine BESYLATE 5 MG TAB PO SCH (09:51)
[2021-03-02] MEDS: DONEPEZIL HCL 10 MG TAB PO SCH (09:51)
[2021-03-02] MEDS: LORazepam 1 MG TAB PO SCH ×2 (09:55→21:32)
--- NOTE | 2021-03-02 17:39 | Hospitalist Progress Note ---
Date of Service March 02, 2021 Assessment & Plan (1) Unable to care for self: Plan: - Home situation quickly deteriorated and does not have the adequate services to allow her to stay at home safely - Appears had services through [facility] but staffing issues has affected her services - Daughter who is POA appears to have been incarcerated and grandson unable to fully assist with patients needs - Awaiting placement - appreciate case management assistance - Appears at baseline mentation - no acute changes (2) Alzheimer disease: Plan: - Appears severe. Nothing appears acute - Continue Donepezil 10 mg daily and Memantine 20 mg daily; Haldol PRN (has not required any dosing) (3) Type 2 diabetes mellitus: Plan: - A1c 8.8 in December 2019; and currently down to 8.6 - Appears to be slowly improving without intervention and would suspect oral intake could gradually decrease placing her at risk for hypoglycemia and falls especially in the setting of advanced dementia - Average glucose at 200 - would not overcorrect (4) Severe protein-calorie malnutrition: Plan: - Clinical Indicators: Patient with BMI of 19 has documented 13.8% weight loss in past 4 months and requires feeding assistance per RD consult. - Risk Factor(s): Dementia, low BMI, unable to feed self - Treatment: provide feeding assistance, high protein supplements, I&O, weights (5) Hypothyroid: Plan: - Last TSH check was low - repeat this admission is WNL - Continue Levothyroxine 112 mcg daily (6) Hypertension: Plan: - STABLE - Continue Amlodipine 5 mg daily (7) DVT prophylaxis: Plan: - Ambulation Plan: - Appreciate case management assistance with placement; unsafe to return home - Would be medically stable for discharge pending placement arrangement - has been difficult to place; she is unvaccinated Admission and Anticipated Discharge Date Admission Date: February 14, 2021 Subjective Ms. Avelar was seen on rounds this morning. Pt remains hospitalized essentially due to her inability to care for herself at home. She is currently laying in hospital bed, offers no complaints. No issues verbalized by RN. She continues to await placement which has been difficult due to her not be vaccinated against COVID-19. Review of Systems Review of Systems: poor historian due to dementia, does not endorse any complaints Physical Exam Physical Exam: GENERAL: 75 yo elderly WF. WD/WN. [place] but awake/alert. NAD. LUNGS: Clear to auscultation bilaterally. No accessory muscle use. No W/R/R. CARDIOVASCULAR: Regular rate and rhythm. No M/G/R. No JVD. ABDOMEN: Soft, non-tender and non-distended. BS normal x 4 quad. EXTREMITIES: No edema. Non-tender. Peripheral pulses +2/4. PSYCHIATRIC: Cooperative. Appropriate mood and affect. SKIN: Warm, dry, intact. No rashes or lesions. Results & Data Results & Data ([facility]) Vital Signs (Past 12 Hours) Vital Signs Temp Pulse Resp BP Pulse Ox 03/02/21 16:24 36.6 C 81 16 138/77 95 03/02/21 07:50 36.5 C 83 18 119/77 95 PG Care Time/CCT Total # of Minutes Spent Total Time Spent with Patient: Total time spent is greater than 50% in coordination of care (as documented) at patient's floor/unit and/or counseling patient: Coding Level of Care Code 27160 Subseq Hosp Care Lvl 1 Diagnoses Unable to care for self Z78.9 Alzheimer disease G30.9; F02.80 Type 2 diabetes mellitus E11.9 Diabetes mellitus half-way insulin use: without business coordinator use Diabetes mellitus complication status: without complication Severe protein-calorie malnutrition E43 Hypothyroid E03.9 Hypothyroidism type: unspecified Hypertension I10 Hypertension type: essential hypertension DVT prophylaxis Z29.9 (1) Type 2 diabetes mellitus Diabetes mellitus half-way insulin use: without business coordinator use Diabetes mellitus complication status: without complication Qualified Code(s): E11.9 - Type 2 diabetes mellitus without complications (2) Hypothyroid Hypothyroidism type: unspecified Qualified Code(s): E03.9 - Hypothyroidism, unspecified (3) Hypertension Hypertension type: essential hypertension Qualified Code(s): I10 - Essential (primary) hypertension
[2021-03-03] MEDS: HYOSCYAMINE SULFATE 0.125 MG TAB PO SCH ×3 (05:40→17:49)
[2021-03-03] MEDS: LEVOTHYROXINE SODIUM 112 MCG TABLET PO SCH (05:40)
[2021-03-03] MEDS: PANTOprazole 40 MG TAB PO SCH (09:05)
[2021-03-03] MEDS: LORazepam 1 MG TAB PO SCH ×2 (09:05→20:25)
[2021-03-03] MEDS: DOCUSATE SODIUM 100 MG CAP PO SCH ×2 (09:06→20:26)
[2021-03-03] MEDS: DONEPEZIL HCL 10 MG TAB PO SCH (09:06)
[2021-03-03] MEDS: amLODIPine BESYLATE 5 MG TAB PO SCH (09:06)
[2021-03-03] MEDS: MULTIVITAMIN TAB PO SCH (09:07)
[2021-03-03] MEDS: MEMANTINE HCL 10 MG TAB PO SCH (09:07)
[2021-03-03] MEDS: MELOXICAM 7.5 MG TAB PO SCH (09:07)
[2021-03-03] MEDS: PSYLLIUM 58.6% POWDER PACKET PO SCH (09:08)
--- NOTE | 2021-03-03 14:31 | Hospitalist Progress Note ---
Date of Service March 03, 2021 Assessment & Plan (1) Unable to care for self: Plan: - Home situation quickly deteriorated and does not have the adequate services to allow her to stay at home safely - Appears had services through [facility] but staffing issues has affected her services - Daughter who is POA appears to have been incarcerated and grandson unable to fully assist with patients needs - Awaiting placement - appreciate case management assistance - Appears at baseline mentation - no acute changes (2) Alzheimer disease: Plan: - Appears severe. Nothing appears acute - Continue Donepezil 10 mg daily and Memantine 20 mg daily; Haldol PRN (has not required any dosing) (3) Type 2 diabetes mellitus: Plan: - A1c 8.8 in December 2019; and currently down to 8.6 - Appears to be slowly improving without intervention and would suspect oral intake could gradually decrease placing her at risk for hypoglycemia and falls especially in the setting of advanced dementia - Average glucose at 200 - would not overcorrect (4) Severe protein-calorie malnutrition: Plan: - Clinical Indicators: Patient with BMI of 19 has documented 13.8% weight loss in past 4 months and requires feeding assistance per RD consult. - Risk Factor(s): Dementia, low BMI, unable to feed self - Treatment: provide feeding assistance, high protein supplements, I&O, weights (5) Hypothyroid: Plan: - Last TSH check was low - repeat this admission is WNL - Continue Levothyroxine 112 mcg daily (6) Hypertension: Plan: - STABLE - Continue Amlodipine 5 mg daily (7) DVT prophylaxis: Plan: - Ambulation Plan: - Appreciate case management assistance with placement; unsafe to return home - Would be medically stable for discharge pending placement arrangement - has been difficult to place; she is unvaccinated Admission and Anticipated Discharge Date Admission Date: February 14, 2021 Subjective Ms. Avelar was seen on rounds this morning. Pt remains hospitalized essentially due to her inability to care for herself at home. She is currently laying in hospital bed, offers no complaints. No issues verbalized by RN. She continues to await placement which has been difficult due to her not be vaccinated against COVID-19. Review of Systems Review of Systems: poor historian due to dementia, does not endorse any complaints Physical Exam Physical Exam: GENERAL: 75 yo elderly WF. WD/WN. [place] but awake/alert. NAD. LUNGS: Clear to auscultation bilaterally. No accessory muscle use. No W/R/R. CARDIOVASCULAR: Regular rate and rhythm. No M/G/R. No JVD. ABDOMEN: Soft, non-tender and non-distended. BS normal x 4 quad. EXTREMITIES: No edema. Non-tender. Peripheral pulses +2/4. PSYCHIATRIC: Cooperative. Appropriate mood and affect. SKIN: Warm, dry, intact. No rashes or lesions. Results & Data Results & Data ([facility]) Vital Signs (Past 12 Hours) Vital Signs Temp Pulse Resp BP Pulse Ox 03/03/21 06:51 36.7 C 80 17 141/84 H 98 PG Care Time/CCT Total # of Minutes Spent Total Time Spent with Patient: Total time spent is greater than 50% in coordination of care (as documented) at patient's floor/unit and/or counseling patient: Coding Level of Care Code 85347 Subseq Hosp Care Lvl 1 Diagnoses Unable to care for self Z78.9 Alzheimer disease G30.9; F02.80 Type 2 diabetes mellitus E11.9 Diabetes mellitus salvage determiner insulin use: without salvage determiner use Diabetes mellitus complication status: without complication Severe protein-calorie malnutrition E43 Hypothyroid E03.9 Hypothyroidism type: unspecified Hypertension I10 Hypertension type: essential hypertension DVT prophylaxis Z29.9 (1) Type 2 diabetes mellitus Diabetes mellitus salvage determiner insulin use: without [facility] use Diabetes mellitus complication status: without complication Qualified Code(s): E11.9 - Type 2 diabetes mellitus without complications (2) Hypothyroid Hypothyroidism type: unspecified Qualified Code(s): E03.9 - Hypothyroidism, unspecified (3) Hypertension Hypertension type: essential hypertension Qualified Code(s): I10 - Essential (primary) hypertension
[2021-03-04] MEDS: HYOSCYAMINE SULFATE 0.125 MG TAB PO SCH ×5 (00:08→18:07)
[2021-03-04] MEDS: LEVOTHYROXINE SODIUM 112 MCG TABLET PO SCH (05:56)
[2021-03-04] MEDS: LORazepam 1 MG TAB PO SCH ×2 (09:35→20:03)
[2021-03-04] MEDS: PSYLLIUM 58.6% POWDER PACKET PO SCH (09:36)
[2021-03-04] MEDS: DONEPEZIL HCL 10 MG TAB PO SCH (09:37)
[2021-03-04] MEDS: MELOXICAM 7.5 MG TAB PO SCH (09:38)
[2021-03-04] MEDS: amLODIPine BESYLATE 5 MG TAB PO SCH (09:39)
[2021-03-04] MEDS: MULTIVITAMIN TAB PO SCH (09:40)
[2021-03-04] MEDS: PANTOprazole 40 MG TAB PO SCH (09:41)
[2021-03-04] MEDS: MEMANTINE HCL 10 MG TAB PO SCH (09:42)
[2021-03-04] MEDS: DOCUSATE SODIUM 100 MG CAP PO SCH ×2 (09:44→20:02)
--- NOTE | 2021-03-04 11:57 | Hospitalist Progress Note ---
Date of Service March 04, 2021 Assessment & Plan (1) Unable to care for self: Plan: - Home situation quickly deteriorated and does not have the adequate services to allow her to stay at home safely - Appears had services through [facility] but staffing issues has affected her services - Daughter who is POA appears to have been incarcerated and grandson unable to fully assist with patients needs - Awaiting placement - appreciate case management assistance - Appears at baseline mentation - no acute changes (2) Alzheimer disease: Plan: - Appears severe. Nothing appears acute - Continue Donepezil 10 mg daily and Memantine 20 mg daily; Haldol PRN (has not required any dosing) (3) Type 2 diabetes mellitus: Plan: - A1c 8.8 in December 2019; and currently down to 8.6 - Appears to be slowly improving without intervention and would suspect oral intake could gradually decrease placing her at risk for hypoglycemia and falls especially in the setting of advanced dementia - Average glucose at 200 - would not overcorrect (4) Severe protein-calorie malnutrition: Plan: - Clinical Indicators: Patient with BMI of 19 has documented 13.8% weight loss in past 4 months and requires feeding assistance per RD consult. - Risk Factor(s): Dementia, low BMI, unable to feed self - Treatment: provide feeding assistance, high protein supplements, I&O, weights (5) Hypothyroid: Plan: - Last TSH check was low - repeat this admission is WNL - Continue Levothyroxine 112 mcg daily (6) Hypertension: Plan: - Stable - Continue Amlodipine 5 mg daily (7) DVT prophylaxis: Plan: - Ambulation Plan: - Appreciate case management assistance with placement; unsafe to return home - Would be medically stable for discharge pending placement arrangement - has been difficult to place; she is unvaccinated Admission and Anticipated Discharge Date Admission Date: February 14, 2021 Subjective Ms. Avelar was seen on rounds this morning. Pt remains hospitalized essentially due to her inability to care for herself at home. She is currently laying in hospital bed, offers no complaints. No issues verbalized by RN. She continues to await placement which has been difficult due to her not be vaccinated against COVID-19. Review of Systems Review of Systems: poor historian due to dementia, does not endorse any specific complaints Physical Exam Physical Exam: GENERAL: 75 yo elderly WF. Well-developed, well-nourished. [place] but awake/alert. NAD. LUNGS: Clear to auscultation bilaterally. No accessory muscle use. No W/R/R. CARDIOVASCULAR: Regular rate and rhythm. No M/G/R. No JVD. ABDOMEN: Soft, non-tender and non-distended. BS normoactive x 4 quad. EXTREMITIES: No edema. Non-tender. Peripheral pulses +2/4. PSYCHIATRIC: Cooperative. Appropriate mood and affect. SKIN: Warm, dry, intact. No rashes or lesions. Results & Data Results & Data ([facility]) Vital Signs (Past 12 Hours) Vital Signs Temp Pulse Resp BP Pulse Ox 03/04/21 10:26 36.3 C L 61 18 127/67 98 03/04/21 06:34 36.8 C 61 16 136/70 98 PG Care Time/CCT Total # of Minutes Spent Total Time Spent with Patient: Total time spent is greater than 50% in coordination of care (as documented) at patient's floor/unit and/or counseling patient: Coding Level of Care Code 74412 Subseq Hosp Care Lvl 1 Diagnoses Unable to care for self Z78.9 Alzheimer disease G30.9; F02.80 Type 2 diabetes mellitus E11.9 Diabetes mellitus nursing home insulin use: without nursing home use Diabetes mellitus complication status: without complication Severe protein-calorie malnutrition E43 Hypothyroid E03.9 Hypothyroidism type: unspecified Hypertension I10 Hypertension type: essential hypertension DVT prophylaxis Z29.9 (1) Type 2 diabetes mellitus Diabetes mellitus nursing home insulin use: without miniature set constructor use Diabetes mellitus complication status: without complication Qualified Code(s): E11.9 - Type 2 diabetes mellitus without complications (2) Hypothyroid Hypothyroidism type: unspecified Qualified Code(s): E03.9 - Hypothyroidism, unspecified (3) Hypertension Hypertension type: essential hypertension Qualified Code(s): I10 - Essential (primary) hypertension
[2021-03-05] MEDS: HYOSCYAMINE SULFATE 0.125 MG TAB PO SCH ×5 (00:44→23:41)
[2021-03-05] MEDS: LEVOTHYROXINE SODIUM 112 MCG TABLET PO SCH (05:26)
[2021-03-05] MEDS: PANTOprazole 40 MG TAB PO SCH (08:20)
[2021-03-05] MEDS: MULTIVITAMIN TAB PO SCH (08:20)
[2021-03-05] MEDS: MEMANTINE HCL 10 MG TAB PO SCH (08:21)
[2021-03-05] MEDS: DOCUSATE SODIUM 100 MG CAP PO SCH ×2 (08:21→20:13)
[2021-03-05] MEDS: DONEPEZIL HCL 10 MG TAB PO SCH (08:21)
[2021-03-05] MEDS: MELOXICAM 7.5 MG TAB PO SCH (08:21)
[2021-03-05] MEDS: PSYLLIUM 58.6% POWDER PACKET PO SCH (08:22)
[2021-03-05] MEDS: amLODIPine BESYLATE 5 MG TAB PO SCH (08:22)
[2021-03-05] MEDS: LORazepam 1 MG TAB PO SCH ×2 (08:29→20:13)
--- NOTE | 2021-03-05 08:51 | Hospitalist Progress Note ---
Date of Service March 05, 2021 Assessment & Plan (1) Unable to care for self: Plan: - Home situation quickly deteriorated and does not have the adequate services to allow her to stay at home safely - Appears had services through [facility] but staffing issues has affected her services - Daughter who is POA appears to have been incarcerated and grandson unable to fully assist with patients needs - Awaiting placement - appreciate case management assistance - Appears at baseline mentation - no acute changes (2) Alzheimer disease: Plan: - Appears severe. Nothing appears acute - Continue Donepezil 10 mg daily and Memantine 20 mg daily; Haldol PRN (has not required any dosing) (3) Type 2 diabetes mellitus: Plan: - A1c 8.8 in December 2019; and currently down to 8.6 - Appears to be slowly improving without intervention and would suspect oral intake could gradually decrease placing her at risk for hypoglycemia and falls especially in the setting of advanced dementia - Average glucose at 200 - would not overcorrect (4) Severe protein-calorie malnutrition: Plan: - Clinical Indicators: Patient with BMI of 19 has documented 13.8% weight loss in past 4 months and requires feeding assistance per RD consult. - Risk Factor(s): Dementia, low BMI, unable to feed self - Treatment: provide feeding assistance, high protein supplements, I&O, weights (5) Hypothyroid: Plan: - Continue Levothyroxine 112 mcg daily (6) Hypertension: Plan: - Stable - Continue Amlodipine 5 mg daily (7) DVT prophylaxis: Plan: - Ambulation Plan: - Appreciate case management assistance with placement; unsafe to return home - Would be medically stable for discharge pending placement arrangement - has been difficult to place; she is unvaccinated. Last documentation notes checking bed availability at [facility]. Admission and Anticipated Discharge Date Admission Date: February 14, 2021 Subjective Ms. Avelar was seen on rounds this morning. Pt remains hospitalized essentially due to her inability to care for herself at home. She is currently sitting in bedside chair, offers no complaints. No issues verbalized by RN. She continues to await placement which has been difficult due to her not be vaccinated against COVID-19. Review of Systems Review of Systems: poor historian due to dementia, does not endorse any specific complaints Physical Exam Physical Exam: GENERAL: 75 yo elderly WF. Well-developed, well-nourished. [place] but awake/alert. NAD. LUNGS: Clear to auscultation bilaterally. No accessory muscle use. No W/R/R. CARDIOVASCULAR: Regular rate and rhythm. No M/G/R. No JVD. ABDOMEN: Soft, non-tender and non-distended. BS normoactive x 4 quad. EXTREMITIES: No edema. Non-tender. Peripheral pulses +2/4. PSYCHIATRIC: Cooperative. Appropriate mood and affect. SKIN: Warm, dry, intact. No rashes or lesions. Results & Data Results & Data ([facility]) Vital Signs (Past 12 Hours) Vital Signs Temp Pulse Resp BP Pulse Ox 03/05/21 07:28 36.0 C L 63 18 126/71 98 03/04/21 23:05 36.9 C 62 16 115/66 98 PG Care Time/CCT Total # of Minutes Spent Total Time Spent with Patient: Total time spent is greater than 50% in coordination of care (as documented) at patient's floor/unit and/or counseling patient: Coding Level of Care Code 96447 Subseq Hosp Care Lvl 1 Diagnoses Unable to care for self Z78.9 Alzheimer disease G30.9; F02.80 Type 2 diabetes mellitus E11.9 Diabetes mellitus complication status: without complication Diabetes mellitus senior computer specialist insulin use: without senior computer specialist use Severe protein-calorie malnutrition E43 Hypothyroid E03.9 Hypothyroidism type: unspecified Hypertension I10 Hypertension type: essential hypertension DVT prophylaxis Z29.9 (1) Type 2 diabetes mellitus Diabetes mellitus complication status: without complication Diabetes mellitus senior computer specialist insulin use: without senior computer specialist use Qualified Code(s): E11.9 - Type 2 diabetes mellitus without complications (2) Hypothyroid Hypothyroidism type: unspecified Qualified Code(s): E03.9 - Hypothyroidism, unspecified (3) Hypertension Hypertension type: essential hypertension Qualified Code(s): I10 - Essential (primary) hypertension
[2021-03-06] MEDS: HYOSCYAMINE SULFATE 0.125 MG TAB PO SCH ×4 (05:47→23:29)
[2021-03-06] MEDS: LEVOTHYROXINE SODIUM 112 MCG TABLET PO SCH (05:47)
--- NOTE | 2021-03-06 08:45 | Hospitalist Progress Note ---
Date of Service March 06, 2021 Assessment & Plan (1) Unable to care for self: Plan: - Home situation quickly deteriorated and does not have the adequate services to allow her to stay at home safely - Appears had services through [facility] but staffing issues has affected her services - Daughter who is POA appears to have been incarcerated and grandson unable to fully assist with patients needs - Awaiting placement - appreciate case management assistance - Appears at baseline mentation - no acute changes (2) Alzheimer disease: Plan: - Appears severe. Nothing appears acute - Continue Donepezil 10 mg daily and Memantine 20 mg daily; Haldol PRN (has not required any dosing) (3) Type 2 diabetes mellitus: Plan: - A1c 8.8 in December 2019; and currently down to 8.6 - Appears to be slowly improving without intervention and would suspect oral intake could gradually decrease placing her at risk for hypoglycemia and falls especially in the setting of advanced dementia - Average glucose at 200 - would not overcorrect (4) Severe protein-calorie malnutrition: Plan: - Clinical Indicators: Patient with BMI of 19 has documented 13.8% weight loss in past 4 months and requires feeding assistance per RD consult. - Risk Factor(s): Dementia, low BMI, unable to feed self - Treatment: provide feeding assistance, high protein supplements, I&O, weights (5) Hypothyroid: Plan: - Continue Levothyroxine 112 mcg daily (6) Hypertension: Plan: - Stable - Continue Amlodipine 5 mg daily--hold this AM due to soft BP - Will reassess need for continuation (7) DVT prophylaxis: Plan: - Ambulation Plan: - Appreciate case management assistance with placement; unsafe to return home - Would be medically stable for discharge pending placement arrangement - has been difficult to place; she is unvaccinated. Last CM documentation this morning notes referrals sent to [facility]. To follow up with them as well as other referrals that have been sent. Admission and Anticipated Discharge Date Admission Date: February 14, 2021 Supervising Physician Co-Signing Physician Notes I called the family and the evening of March 06. I spoke to Al but his mother who is the AMARILYS Siu was also available. They both gave verbal consent that this patient can receive the Covid vaccine I did inform that was [facility] said they are aware of the risk with the vaccine but understand that the patient is required to be vaccinated before moving to a long term facility or rehab center. I then personally called the pharmacy spoke to pharmacist on duty to confirm the dose will be given. Subjective Ms. Avelar (apparently goes by Mayra) was seen on rounds this morning. Pt remains hospitalized essentially due to her inability to care for herself at home. She continues to await placement which has been difficult due to her unvaccinated status against COVID-19. Currently, she is laying in bed, seems less alert today. No issues verbalized by RN. Review of Systems Review of Systems: poor historian due to dementia, does not endorse any specific complaints Physical Exam Physical Exam: GENERAL: 75 yo elderly WF. Well-developed, well-nourished. [place] but awake/alert. NAD. LUNGS: Clear to auscultation bilaterally. No accessory muscle use. No W/R/R. CARDIOVASCULAR: Regular rate and rhythm. No M/G/R. No JVD. ABDOMEN: Soft, non-tender and non-distended. BS normoactive x 4 quad. EXTREMITIES: No edema. Non-tender. Peripheral pulses +2/4. PSYCHIATRIC: Cooperative. Appropriate mood and affect. SKIN: Warm, dry, intact. No rashes or lesions. Results & Data Results & Data ([facility]) Vital Signs (Past 12 Hours) Vital Signs Temp Pulse Resp BP BP Pulse Ox 03/06/21 07:22 36.7 C 63 17 88/55 L 97 03/05/21 23:06 36.8 C 93 H 16 105/57 L 96 PG Care Time/CCT Total # of Minutes Spent Total Time Spent with Patient: Total time spent is greater than 50% in coordination of care (as documented) at patient's floor/unit and/or counseling patient: Coding Level of Care Code 64113 Subseq Hosp Care Lvl 1 Diagnoses Unable to care for self Z78.9 Alzheimer disease G30.9; F02.80 Type 2 diabetes mellitus E11.9 Diabetes mellitus complication status: without complication Diabetes mellitus group home insulin use: without group home use Severe protein-calorie malnutrition E43 Hypothyroid E03.9 Hypothyroidism type: unspecified Hypertension I10 Hypertension type: essential hypertension DVT prophylaxis Z29.9 (1) Type 2 diabetes mellitus Diabetes mellitus complication status: without complication Diabetes mellitus intermediate accountant insulin use: without group home use Qualified Code(s): E11.9 - Type 2 diabetes mellitus without complications (2) Hypothyroid Hypothyroidism type: unspecified Qualified Code(s): E03.9 - Hypothyroidism, unspecified (3) Hypertension Hypertension type: essential hypertension Qualified Code(s): I10 - Essential (primary) hypertension
[2021-03-06] MEDS: PANTOprazole 40 MG TAB PO SCH (10:41)
[2021-03-06] MEDS: MULTIVITAMIN TAB PO SCH (10:41)
[2021-03-06] MEDS: MELOXICAM 7.5 MG TAB PO SCH (10:41)
[2021-03-06] MEDS: DONEPEZIL HCL 10 MG TAB PO SCH (10:41)
[2021-03-06] MEDS: amLODIPine BESYLATE 5 MG TAB PO SCH (10:42)
[2021-03-06] MEDS: LORazepam 1 MG TAB PO SCH ×2 (10:42→21:40)
[2021-03-06] MEDS: MEMANTINE HCL 10 MG TAB PO SCH (10:42)
[2021-03-06] MEDS: PSYLLIUM 58.6% POWDER PACKET PO SCH (10:49)
[2021-03-06] MEDS: DOCUSATE SODIUM 100 MG CAP PO SCH ×2 (10:52→21:40)
[2021-03-06] MEDS ORDERED: COVID-19 VAC,AD26(JANSSEN)/PF 0.5 ML SYR IM ONE (19:37)
--- NOTE | 2021-03-06 19:42 | Communication Note ---
Date of Service: March 06, 2021 Patient was ordered the [place]/[employer] Covid vaccine in the evening of 03/06/2021
[2021-03-07] MEDS: HYOSCYAMINE SULFATE 0.125 MG TAB PO SCH ×3 (05:56→17:20)
[2021-03-07] MEDS: LEVOTHYROXINE SODIUM 112 MCG TABLET PO SCH (05:57)
--- NOTE | 2021-03-07 08:21 | Hospitalist Progress Note ---
Date of Service March 07, 2021 Assessment & Plan (1) Unable to care for self: Plan: - Home situation quickly deteriorated and does not have the adequate services to allow her to stay at home safely - Appears had services through [facility] but staffing issues has affected her services - Daughter who is POA appears to have been incarcerated and grandson unable to fully assist with patients needs - Awaiting placement - appreciate case management assistance - Appears at baseline mentation - no acute changes (2) Alzheimer disease: Plan: - Appears severe. Nothing appears acute - Continue Donepezil 10 mg daily and Memantine 20 mg daily; Haldol PRN (has not required any dosing) (3) Type 2 diabetes mellitus: Plan: - A1c 8.8 in December 2019; and currently down to 8.6 - Appears to be slowly improving without intervention and would suspect oral intake could gradually decrease placing her at risk for hypoglycemia and falls especially in the setting of advanced dementia - Average glucose at 200 - would not overcorrect (4) Severe protein-calorie malnutrition: Plan: - Clinical Indicators: Patient with BMI of 19 has documented 13.8% weight loss in past 4 months and requires feeding assistance per RD consult. - Risk Factor(s): Dementia, low BMI, unable to feed self - Treatment: provide feeding assistance, high protein supplements, I&O, weights (5) Hypothyroid: Plan: - Continue Levothyroxine 112 mcg daily (6) Hypertension: Plan: - Stable - Continue Amlodipine 5 mg daily--hold this AM due to soft BP - Will reassess need for continuation (7) DVT prophylaxis: Plan: - Ambulation Plan: - Appreciate case management assistance with placement; unsafe to return home - Would be medically stable for discharge pending placement arrangement - has been difficult to place due to her vaccine status which has since changed effective 03/06/21. Last CM documentation from 03/06 notes referrals sent to [facility]. To follow up with them as well as other referrals that have been sent. Admission and Anticipated Discharge Date Admission Date: February 14, 2021 Subjective Ms. Avelar (goes by Mayra) was seen on rounds this morning. Pt remains hospitalized essentially due to her inability to care for herself at home. She continues to await placement which has been difficult as she had been unvaccinated against COVID up until 03/06. [employer] vaccine became available to be administered in the hospital, consent obtained from Mayra's family and she was vaccinated yesterday (03/06) evening. On rounds this morning, she is laying in bed, has no complaints. Review of Systems Review of Systems: poor historian due to dementia, does not endorse any specific complaints Physical Exam Physical Exam: GENERAL: 75 yo elderly WF. Well-developed, well-nourished. [place] but awake/alert. NAD. LUNGS: Clear to auscultation bilaterally. No accessory muscle use. No W/R/R. CARDIOVASCULAR: Regular rate and rhythm. No M/G/R. No JVD. ABDOMEN: Soft, non-tender and non-distended. BS normoactive x 4 quad. EXTREMITIES: No edema. Non-tender. Peripheral pulses +2/4. PSYCHIATRIC: Cooperative. Appropriate mood and affect. SKIN: Warm, dry, intact. No rashes or lesions. Results & Data Results & Data ([facility]) Vital Signs (Past 12 Hours) Vital Signs Temp Pulse Resp BP Pulse Ox 03/06/21 23:25 36.3 C L 62 16 132/65 96 PG Care Time/CCT Total # of Minutes Spent Total Time Spent with Patient: Total time spent is greater than 50% in coordination of care (as documented) at patient's floor/unit and/or counseling patient: Coding Level of Care Code 59895 Subseq Hosp Care Lvl 1 Diagnoses Unable to care for self Z78.9 Alzheimer disease G30.9; F02.80 Type 2 diabetes mellitus E11.9 Diabetes mellitus complication status: without complication Diabetes mellitus detention insulin use: without detention use Severe protein-calorie malnutrition E43 Hypothyroid E03.9 Hypothyroidism type: unspecified Hypertension I10 Hypertension type: essential hypertension DVT prophylaxis Z29.9 (1) Type 2 diabetes mellitus Diabetes mellitus complication status: without complication Diabetes mellitus portable router operator insulin use: without detention use Qualified Code(s): E11.9 - Type 2 diabetes mellitus without complications (2) Hypothyroid Hypothyroidism type: unspecified Qualified Code(s): E03.9 - Hypothyroidism, unspecified (3) Hypertension Hypertension type: essential hypertension Qualified Code(s): I10 - Essential (primary) hypertension
[2021-03-07] MEDS: PANTOprazole 40 MG TAB PO SCH (09:07)
[2021-03-07] MEDS: DONEPEZIL HCL 10 MG TAB PO SCH (09:07)
[2021-03-07] MEDS: MEMANTINE HCL 10 MG TAB PO SCH (09:07)
[2021-03-07] MEDS: MULTIVITAMIN TAB PO SCH (09:07)
[2021-03-07] MEDS: amLODIPine BESYLATE 5 MG TAB PO SCH (09:07)
[2021-03-07] MEDS: MELOXICAM 7.5 MG TAB PO SCH (09:08)
[2021-03-07] MEDS: PSYLLIUM 58.6% POWDER PACKET PO SCH (09:08)
[2021-03-07] MEDS: DOCUSATE SODIUM 100 MG CAP PO SCH ×2 (09:10→21:23)
[2021-03-07] MEDS: LORazepam 1 MG TAB PO SCH ×2 (09:10→21:23)
[2021-03-08] MEDS: HYOSCYAMINE SULFATE 0.125 MG TAB PO SCH ×5 (00:04→23:50)
[2021-03-08] MEDS: LEVOTHYROXINE SODIUM 112 MCG TABLET PO SCH (05:33)
[2021-03-08] MEDS: MEMANTINE HCL 10 MG TAB PO SCH (07:48)
[2021-03-08] MEDS: PANTOprazole 40 MG TAB PO SCH (07:48)
[2021-03-08] MEDS: PSYLLIUM 58.6% POWDER PACKET PO SCH (07:48)
[2021-03-08] MEDS: MELOXICAM 7.5 MG TAB PO SCH (07:48)
[2021-03-08] MEDS: amLODIPine BESYLATE 5 MG TAB PO SCH (07:48)
[2021-03-08] MEDS: DONEPEZIL HCL 10 MG TAB PO SCH (07:49)
[2021-03-08] MEDS: MULTIVITAMIN TAB PO SCH (07:49)
[2021-03-08] MEDS: LORazepam 1 MG TAB PO SCH ×2 (07:51→20:26)
[2021-03-08] MEDS: DOCUSATE SODIUM 100 MG CAP PO SCH ×2 (07:51→20:26)
--- NOTE | 2021-03-08 10:43 | Hospitalist Progress Note ---
Date of Service March 08, 2021 Assessment & Plan (1) Unable to care for self: Plan: - Home situation quickly deteriorated and does not have the adequate services to allow her to stay at home safely - Appears had services through [facility] but staffing issues has affected her services - Daughter who is POA appears to have been incarcerated and grandson unable to fully assist with patients needs - Awaiting placement - appreciate case management assistance - Appears at baseline mentation - no acute changes (2) Alzheimer disease: Plan: - Appears severe. Nothing appears acute - Continue Donepezil 10 mg daily and Memantine 20 mg daily; Haldol PRN (has not required any dosing) (3) Type 2 diabetes mellitus: Plan: - A1c 8.8 in December 2019; and currently down to 8.6 - Appears to be slowly improving without intervention and would suspect oral intake could gradually decrease placing her at risk for hypoglycemia and falls especially in the setting of advanced dementia - Average glucose at 200 - would not overcorrect (4) Severe protein-calorie malnutrition: Plan: - Clinical Indicators: Patient with BMI of 19 has documented 13.8% weight loss in past 4 months and requires feeding assistance per RD consult. - Risk Factor(s): Dementia, low BMI, unable to feed self - Treatment: provide feeding assistance, high protein supplements, I&O, weights (5) Hypothyroid: Plan: - Continue Levothyroxine 112 mcg daily (6) Hypertension: Plan: - Stable - Continue Amlodipine 5 mg daily--hold this AM due to soft BP - Will reassess need for continuation (7) DVT prophylaxis: Plan: - Ambulation Plan: - Appreciate case management assistance with placement; unsafe to return home - Would be medically stable for discharge pending placement arrangement - has been difficult to place due to her vaccine status which has since changed effective 03/06/21. Last CM documentation from 03/06 notes referrals sent to [facility]. To follow up with them as well as other referrals that have been sent. Admission and Anticipated Discharge Date Admission Date: February 14, 2021 Subjective Ms. Avelar (goes by Mayra) was seen on rounds this morning. Pt remains hospitalized essentially due to her inability to care for herself at home. She continues to await placement which has been difficult as she had been unvaccinated against COVID up until 03/06. [employer] vaccine became available to be administered in the hospital, consent obtained from Mayra's family and she was vaccinated yesterday (03/06) evening. On rounds this morning, she is resting comfortably in bed asleep. Review of Systems Review of Systems: poor historian due to dementia, does not endorse any specific complaints Physical Exam Physical Exam: GENERAL: 75 yo elderly WF. Well-developed, well-nourished. NAD. LUNGS: Clear to auscultation bilaterally. No accessory muscle use. No W/R/R. CARDIOVASCULAR: Regular rate and rhythm. No M/G/R. No JVD. ABDOMEN: Soft, non-tender and non-distended. BS normoactive x 4 quad. EXTREMITIES: No edema. Non-tender. Peripheral pulses +2/4. PSYCHIATRIC: Cooperative. Appropriate mood and affect. SKIN: Warm, dry, intact. No rashes or lesions. Results & Data Results & Data ([facility]) Vital Signs (Past 12 Hours) Vital Signs Temp Pulse Resp BP Pulse Ox 03/08/21 07:00 36.4 C L 77 14 147/73 H 94 PG Care Time/CCT Total # of Minutes Spent Total Time Spent with Patient: Total time spent is greater than 50% in coordination of care (as documented) at patient's floor/unit and/or counseling patient: Coding Level of Care Code 70543 Subseq Hosp Care Lvl 1 Diagnoses Unable to care for self Z78.9 Alzheimer disease G30.9; F02.80 Type 2 diabetes mellitus E11.9 Diabetes mellitus termination clerk insulin use: without termination clerk use Diabetes mellitus complication status: without complication Severe protein-calorie malnutrition E43 Hypothyroid E03.9 Hypothyroidism type: unspecified Hypertension I10 Hypertension type: essential hypertension DVT prophylaxis Z29.9 (1) Type 2 diabetes mellitus Diabetes mellitus termination clerk insulin use: without [facility] use Diabetes mellitus complication status: without complication Qualified Code(s): E11.9 - Type 2 diabetes mellitus without complications (2) Hypothyroid Hypothyroidism type: unspecified Qualified Code(s): E03.9 - Hypothyroidism, unspecified (3) Hypertension Hypertension type: essential hypertension Qualified Code(s): I10 - Essential (primary) hypertension
[2021-03-09] MEDS: HYOSCYAMINE SULFATE 0.125 MG TAB PO SCH ×3 (05:59→17:02)
[2021-03-09] MEDS: LEVOTHYROXINE SODIUM 112 MCG TABLET PO SCH (05:59)
[2021-03-09] MEDS: DOCUSATE SODIUM 100 MG CAP PO SCH ×2 (08:08→21:28)
[2021-03-09] MEDS: LORazepam 1 MG TAB PO SCH ×2 (08:08→21:28)
[2021-03-09] MEDS: PANTOprazole 40 MG TAB PO SCH (08:09)
[2021-03-09] MEDS: MEMANTINE HCL 10 MG TAB PO SCH (08:09)
[2021-03-09] MEDS: amLODIPine BESYLATE 5 MG TAB PO SCH (08:09)
[2021-03-09] MEDS: MULTIVITAMIN TAB PO SCH (08:09)
[2021-03-09] MEDS: PSYLLIUM 58.6% POWDER PACKET PO SCH (08:09)
[2021-03-09] MEDS: MELOXICAM 7.5 MG TAB PO SCH (08:09)
[2021-03-09] MEDS: DONEPEZIL HCL 10 MG TAB PO SCH (08:09)
--- NOTE | 2021-03-09 12:04 | Hospitalist Progress Note ---
Date of Service March 09, 2021 Assessment & Plan (1) Unable to care for self: Plan: - Home situation quickly deteriorated and does not have the adequate services to allow her to stay at home safely - Appears had services through [facility] but staffing issues has affected her services - Daughter who is POA appears to have been incarcerated (possibly) but was present with Dr. Koenig obtained consent for vaccination - however unable to fully assist with patients needs - Awaiting placement - appreciate case management assistance - Appears at baseline mentation - no acute changes (2) Alzheimer disease: Plan: - Appears severe. Nothing appears acute - Continue Donepezil 10 mg daily and Memantine 20 mg daily; Haldol PRN (has not required any dosing) (3) Type 2 diabetes mellitus: Plan: - A1c 8.8 in December 2019; and currently down to 8.6 - Appears to be slowly improving without intervention and would suspect oral intake could gradually decrease placing her at risk for hypoglycemia and falls especially in the setting of advanced dementia - Average glucose at 200 - would not overcorrect (4) Severe protein-calorie malnutrition: Plan: - Clinical Indicators: Patient with BMI of 19 has documented 13.8% weight loss in past 4 months and requires feeding assistance per RD consult. - Risk Factor(s): Dementia, low BMI, unable to feed self - Treatment: provide feeding assistance, high protein supplements, I&O, weights (5) Hypothyroid: Plan: - Continue Levothyroxine 112 mcg daily (6) Hypertension: Plan: - Stable - Continue Amlodipine 5 mg daily - Will reassess need for continuation - has had two low pressures but predominantly acceptable (7) DVT prophylaxis: Plan: - Ambulation Plan: - Appreciate case management assistance with placement; unsafe to return home - Would be medically stable for discharge pending placement arrangement - has been difficult to place due to her vaccine status which has since changed effective 03/06/21. Multiple referrals placed and will await determination Admission and Anticipated Discharge Date Admission Date: February 14, 2021 Subjective Resting comfortably in bed. Does not endorse any complaints at this time. Review of Systems Review of Systems: poor historian due to dementia, does not endorse any specific complaints Physical Exam Physical Exam: PHYSICAL EXAM General Appearance: Elderly woman in NAD; alert and oriented to self only HEENT: Head is normocephalic/atraumatic; hard of hearing Neck: Supple; Trachea midline Cardiac: RRR Lungs: CTA bilaterally GI: normoactive BS x 4 quadrants without grimacing or reports of pain with palpation Extremities: Neg cyanosis or edema Psychiatric: Pleasant Skin: Normal Color; Warm/Dry Results & Data Results & Data ([facility]) Vital Signs (Past 12 Hours) Vital Signs Temp Pulse Resp BP Pulse Ox 03/09/21 07:20 36.2 C L 86 17 120/60 96 PG Care Time/CCT Total # of Minutes Spent Total Time Spent with Patient: Total time spent is greater than 50% in coordination of care (as documented) at patient's floor/unit and/or counseling patient: Coding Level of Care Code 88261 Subseq Hosp Care Lvl 2 Diagnoses Unable to care for self Z78.9 Alzheimer disease G30.9; F02.80 Type 2 diabetes mellitus E11.9 Diabetes mellitus complication status: without complication Diabetes mellitus long-term insulin use: without assistant terminal manager use Severe protein-calorie malnutrition E43 Hypothyroid E03.9 Hypothyroidism type: unspecified Hypertension I10 Hypertension type: essential hypertension DVT prophylaxis Z29.9 (1) Type 2 diabetes mellitus Diabetes mellitus complication status: without complication Diabetes mellitus assistant terminal manager insulin use: without long-term use Qualified Code(s): E11.9 - Type 2 diabetes mellitus without complications (2) Hypothyroid Hypothyroidism type: unspecified Qualified Code(s): E03.9 - Hypothyroidism, unspecified (3) Hypertension Hypertension type: essential hypertension Qualified Code(s): I10 - Essential (primary) hypertension
[2021-03-10] MEDS: HYOSCYAMINE SULFATE 0.125 MG TAB PO SCH ×5 (00:30→23:58)
[2021-03-10] MEDS: LEVOTHYROXINE SODIUM 112 MCG TABLET PO SCH (05:54)
[2021-03-10] MEDS: MULTIVITAMIN TAB PO SCH (08:25)
[2021-03-10] MEDS: amLODIPine BESYLATE 5 MG TAB PO SCH (08:25)
[2021-03-10] MEDS: MELOXICAM 7.5 MG TAB PO SCH (08:26)
[2021-03-10] MEDS: DOCUSATE SODIUM 100 MG CAP PO SCH ×2 (08:26→21:36)
[2021-03-10] MEDS: MEMANTINE HCL 10 MG TAB PO SCH (08:26)
[2021-03-10] MEDS: PANTOprazole 40 MG TAB PO SCH (08:26)
[2021-03-10] MEDS: PSYLLIUM 58.6% POWDER PACKET PO SCH (08:26)
[2021-03-10] MEDS: DONEPEZIL HCL 10 MG TAB PO SCH (08:26)
[2021-03-10] MEDS: LORazepam 1 MG TAB PO SCH ×2 (10:16→21:36)
--- NOTE | 2021-03-10 15:40 | Hospitalist Progress Note ---
Date of Service March 10, 2021 Assessment & Plan (1) Unable to care for self: Plan: - Home situation quickly deteriorated and does not have the adequate services to allow her to stay at home safely - Appears had services through [facility] but staffing issues has affected her services - Daughter who is POA appears to have been incarcerated (possibly) but was present with Dr. Koenig obtained consent for vaccination - however unable to fully assist with patients needs - Awaiting placement - appreciate case management assistance - Appears at baseline mentation - no acute changes (2) Alzheimer disease: Plan: - Appears severe. Nothing appears acute - Continue Donepezil 10 mg daily and Memantine 20 mg daily; Haldol PRN (has not required any dosing) (3) Type 2 diabetes mellitus: Plan: - A1c 8.8 in December 2019; and currently down to 8.6 - Appears to be slowly improving without intervention and would suspect oral intake could gradually decrease placing her at risk for hypoglycemia and falls especially in the setting of advanced dementia - Average glucose at 200 - would not overcorrect (4) Severe protein-calorie malnutrition: Plan: - Clinical Indicators: Patient with BMI of 19 has documented 13.8% weight loss in past 4 months and requires feeding assistance per RD consult. - Risk Factor(s): Dementia, low BMI, unable to feed self - Treatment: provide feeding assistance, high protein supplements, I&O, weights (5) Hypothyroid: Plan: - Continue Levothyroxine 112 mcg daily (6) Hypertension: Plan: - Stable - Continue Amlodipine 5 mg daily - Will reassess need for continuation - has had two low pressures but predominantly acceptable (7) DVT prophylaxis: Plan: - Ambulation Plan: - Appreciate case management assistance with placement; unsafe to return home - Would be medically stable for discharge pending placement arrangement - has been difficult to place due to her vaccine status which has since changed effective 03/06/21. Multiple referrals placed and will await determination Admission and Anticipated Discharge Date Admission Date: February 14, 2021 Subjective Resting comfortably in bed. Verbalizes no complaints today. Not very conversational but is very heard of hearing. Review of Systems Review of Systems: All systems reviewed & are unremarkable except as noted in Subjective Physical Exam Physical Exam: PHYSICAL EXAM General Appearance: Elderly woman in NAD; alert and oriented to self only HEENT: Head is normocephalic/atraumatic; hard of hearing Neck: Supple; Trachea midline Cardiac: RRR Lungs: CTA bilaterally GI: normoactive BS x 4 quadrants without grimacing or reports of pain with palpation Extremities: Neg cyanosis or edema Psychiatric: Pleasant Skin: Normal Color; Warm/Dry Results & Data Results & Data ([facility]) Vital Signs (Past 12 Hours) Vital Signs Temp Pulse Resp BP Pulse Ox 03/10/21 08:23 36.3 C L 67 16 156/64 H 97 PG Care Time/CCT Total # of Minutes Spent Total Time Spent with Patient: Total time spent is greater than 50% in coordination of care (as documented) at patient's floor/unit and/or counseling patient: Coding Level of Care Code 95927 Subseq Hosp Care Lvl 2 Diagnoses Unable to care for self Z78.9 Alzheimer disease G30.9; F02.80 Type 2 diabetes mellitus E11.9 Diabetes mellitus complication status: without complication Diabetes mellitus [facility] insulin use: without medical terminologist use Severe protein-calorie malnutrition E43 Hypothyroid E03.9 Hypothyroidism type: unspecified Hypertension I10 Hypertension type: essential hypertension DVT prophylaxis Z29.9 (1) Type 2 diabetes mellitus Diabetes mellitus complication status: without complication Diabetes mellitus medical terminologist insulin use: without [facility] use Qualified Code(s): E11.9 - Type 2 diabetes mellitus without complications (2) Hypothyroid Hypothyroidism type: unspecified Qualified Code(s): E03.9 - Hypothyroidism, unspecified (3) Hypertension Hypertension type: essential hypertension Qualified Code(s): I10 - Essential (primary) hypertension
[2021-03-11] MEDS: LEVOTHYROXINE SODIUM 112 MCG TABLET PO SCH (06:00)
[2021-03-11] MEDS: HYOSCYAMINE SULFATE 0.125 MG TAB PO SCH ×4 (06:00→23:03)
[2021-03-11] MEDS: MULTIVITAMIN TAB PO SCH (08:56)
[2021-03-11] MEDS: amLODIPine BESYLATE 5 MG TAB PO SCH (08:57)
[2021-03-11] MEDS: DONEPEZIL HCL 10 MG TAB PO SCH (08:57)
[2021-03-11] MEDS: PANTOprazole 40 MG TAB PO SCH (08:57)
[2021-03-11] MEDS: MEMANTINE HCL 10 MG TAB PO SCH (08:58)
[2021-03-11] MEDS: PSYLLIUM 58.6% POWDER PACKET PO SCH (08:58)
[2021-03-11] MEDS: MELOXICAM 7.5 MG TAB PO SCH (08:58)
[2021-03-11] MEDS: LORazepam 1 MG TAB PO SCH ×2 (09:00→21:17)
[2021-03-11] MEDS: DOCUSATE SODIUM 100 MG CAP PO SCH ×2 (09:00→21:17)
[2021-03-11 10:04] LABS: Hematocrit (blood only) 41.1 % (37-47); Hemoglobin 13.2 g/dL (12.0-16.0); Mean Corpuscular Hemoglobin 30.9 pg (25-34); Mean Corpuscular Hgb Conc 32.1 g/dL (32-36); Mean Corpuscular Volume 96.3 fL (80-100); Mean Platelet Volume 9.8 fL (7.4-10.4); Platelet Count 315 K/uL (130-400); RDW Coefficient of Variation 14.1 % (11.5-14.5); Red Blood Count 4.27 M/uL (4.2-5.4); White Blood Count 7.96 K/uL (4.8-10.8)
[2021-03-11 10:24] LABS: Creatinine Clr Calc Pharmacy 40.4 ml/min; Est GFR (African American) 64.5 ml/min; Est GFR (Non-African American) 55.6 ml/min; Potassium 4.2 mmol/L (3.5-5.1)
--- NOTE | 2021-03-11 10:45 | XRay Report ---
XR humerus RT 2V CLINICAL HISTORY: Previous Fracture; Assess healing - never had F/U. COMPARISON STUDY: 10/04/2020 TECHNIQUE: AP and lateral right humerus views FINDINGS: Bones: Compared to the previous examination, there has been interval healing of previously identified humeral neck fracture. Residual posttraumatic deformities present. There is no evidence for an acute fracture or dislocation. There is no lytic or blastic lesion. Joints: There is evidence for narrowing of the glenohumeral joint. The bones are in anatomic alignmen t. Soft tissues: There is no focal soft tissue abnormality. There is no radiopaque foreign body. IMPRESSION: Interval healing of previously identified humeral neck fracture with posttraumatic deform ity present. Narrowing of the glenohumeral joint. ACT 112: Negative or not required by law. Electronically signed by: Galo Aguilera M.D. 03/11/2021 10:44 AM
--- NOTE | 2021-03-11 18:26 | Hospitalist Progress Note ---
Date of Service March 11, 2021 Assessment & Plan (1) Unable to care for self: Plan: - Home situation quickly deteriorated and does not have the adequate services to allow her to stay at home safely - Appears had services through [facility] but staffing issues has affected her services - Awaiting placement - appreciate case management assistance - Appears at baseline mentation - no acute changes (2) Humeral fracture: Plan: - Pt sustained a R humeral fracture in October - Discussed with daughter who is POA that she was unable to get followup as daughter was away for 3 months (was told incarcerated on admission??) - Repeat Humeral XR - interval healing of humeral neck fracture with posttraumatic deformity present; narrowing of the glenohumeral joint - Overall does not seem to be bothered by it but also not very communicative - can use Tylenol PRN for any discomfort (3) Alzheimer disease: Plan: - Appears severe. Nothing appears acute - Continue Donepezil 10 mg daily and Memantine 20 mg daily; Haldol PRN (has not required any dosing) (4) Type 2 diabetes mellitus: Plan: - A1c 8.8 in December 2019; and currently down to 8.6 - Appears to be slowly improving without intervention and would suspect oral intake could gradually decrease placing her at risk for hypoglycemia and falls especially in the setting of advanced dementia - Average glucose at 200 - would not overcorrect (5) Severe protein-calorie malnutrition: Plan: - Clinical Indicators: Patient with BMI of 19 has documented 13.8% weight loss in past 4 months and requires feeding assistance per RD consult. - Risk Factor(s): Dementia, low BMI, unable to feed self - Treatment: provide feeding assistance, high protein supplements, I&O, weights (6) Hypothyroid: Plan: - Continue Levothyroxine 112 mcg daily (7) Hypertension: Plan: - Stable - Continue Amlodipine 5 mg daily - Will reassess need for continuation - has had two low pressures but predominantly acceptable (8) DVT prophylaxis: Plan: - Ambulation Plan: - Appreciate case management assistance with placement; unsafe to return home - Would be medically stable for discharge pending placement arrangement - has been difficult to place due to her vaccine status which has since changed effective 03/06/21. Multiple referrals placed and will await determination Admission and Anticipated Discharge Date Admission Date: February 14, 2021 Subjective Patient reports no issues. Resting in bed and continues to look comfortable. XR of arm reveals healing fracture which occurred back in the summer. Review of Systems Review of Systems: All systems reviewed & are unremarkable except as noted in Subjective Physical Exam Physical Exam: PHYSICAL EXAM General Appearance: Elderly woman in NAD; alert and oriented to self only HEENT: Head is normocephalic/atraumatic; hard of hearing Neck: Supple; Trachea midline Cardiac: RRR Lungs: CTA bilaterally GI: normoactive BS x 4 quadrants without grimacing or reports of pain with palpation Extremities: Neg cyanosis or edema Psychiatric: Pleasant Skin: Normal Color; Warm/Dry Results & Data Results & Data ([facility]) Vital Signs (Past 12 Hours) Vital Signs Temp Pulse Resp BP Pulse Ox 03/11/21 15:58 36.4 C L 93 H 16 122/58 L 97 03/11/21 07:55 36.4 C L 73 16 138/60 93 PG Care Time/CCT Total # of Minutes Spent Total Time Spent with Patient: Total time spent is greater than 50% in coordination of care (as documented) at patient's floor/unit and/or counseling patient: Coding Level of Care Code 69177 Subseq Hosp Care Lvl 2 Diagnoses Unable to care for self Z78.9 Alzheimer disease G30.9; F02.80 Type 2 diabetes mellitus E11.9 Diabetes mellitus nursing associate insulin use: without senior care use Diabetes mellitus complication status: without complication Severe protein-calorie malnutrition E43 Hypothyroid E03.9 Hypothyroidism type: unspecified Hypertension I10 Hypertension type: essential hypertension DVT prophylaxis Z29.9 Humeral fracture S42.309A (1) Type 2 diabetes mellitus Diabetes mellitus nursing associate insulin use: without nursing associate use Diabetes mellitus complication status: without complication Qualified Code(s): E11.9 - Type 2 diabetes mellitus without complications (2) Hypothyroid Hypothyroidism type: unspecified Qualified Code(s): E03.9 - Hypothyroidism, unspecified (3) Hypertension Hypertension type: essential hypertension Qualified Code(s): I10 - Essential (primary) hypertension
[2021-03-12] MEDS: LEVOTHYROXINE SODIUM 112 MCG TABLET PO SCH (05:33)
[2021-03-12] MEDS: HYOSCYAMINE SULFATE 0.125 MG TAB PO SCH ×3 (05:33→17:12)
[2021-03-12] MEDS: amLODIPine BESYLATE 5 MG TAB PO SCH (07:59)
[2021-03-12] MEDS: PSYLLIUM 58.6% POWDER PACKET PO SCH (07:59)
[2021-03-12] MEDS: MELOXICAM 7.5 MG TAB PO SCH (07:59)
[2021-03-12] MEDS: PANTOprazole 40 MG TAB PO SCH (07:59)
[2021-03-12] MEDS: MEMANTINE HCL 10 MG TAB PO SCH (07:59)
[2021-03-12] MEDS: DONEPEZIL HCL 10 MG TAB PO SCH (07:59)
[2021-03-12] MEDS: MULTIVITAMIN TAB PO SCH (08:00)
[2021-03-12] MEDS: DOCUSATE SODIUM 100 MG CAP PO SCH ×2 (08:00→21:02)
[2021-03-12] MEDS: LORazepam 1 MG TAB PO SCH ×2 (08:01→21:02)
--- NOTE | 2021-03-12 14:21 | Hospitalist Progress Note ---
Date of Service March 12, 2021 Assessment & Plan (1) Unable to care for self: Plan: - Home situation quickly deteriorated and does not have the adequate services to allow her to stay at home safely - Appears had services through [facility] but staffing issues has affected her services - Awaiting placement - appreciate case management assistance - Appears at baseline mentation - no acute changes (2) Humeral fracture: Plan: - Pt sustained a R humeral fracture in October - Discussed with daughter who is POA that she was unable to get followup as daughter was away for 3 months (was told incarcerated on admission??) - Repeat Humeral XR - interval healing of humeral neck fracture with posttraumatic deformity present; narrowing of the glenohumeral joint - Overall does not seem to be bothered by it but also not very communicative - can use Tylenol PRN for any discomfort (3) Alzheimer disease: Plan: - Appears severe. Nothing appears acute - Continue Donepezil 10 mg daily and Memantine 20 mg daily; Haldol PRN (has not required any dosing) (4) Type 2 diabetes mellitus: Plan: - A1c 8.8 in December 2019; and currently down to 8.6 - Appears to be slowly improving without intervention and would suspect oral intake could gradually decrease placing her at risk for hypoglycemia and falls especially in the setting of advanced dementia - Average glucose at 200 - would not overcorrect (5) Severe protein-calorie malnutrition: Plan: - Clinical Indicators: Patient with BMI of 19 has documented 13.8% weight loss in past 4 months and requires feeding assistance per RD consult. - Risk Factor(s): Dementia, low BMI, unable to feed self - Treatment: provide feeding assistance, high protein supplements, I&O, weights (6) Hypothyroid: Plan: - Continue Levothyroxine 112 mcg daily (7) Hypertension: Plan: - Stable - Continue Amlodipine 5 mg daily - Will reassess need for continuation - has had two low pressures but predominantly acceptable (8) DVT prophylaxis: Plan: - Ambulation Plan: - Appreciate case management assistance with placement; unsafe to return home - Would be medically stable for discharge pending placement arrangement - has been difficult to place due to her vaccine status which has since changed effective 03/06/21 however may not be able to accept until 14 days post-vaccine. Multiple referrals placed and will await determination Admission and Anticipated Discharge Date Admission Date: February 14, 2021 Subjective Patient is resting in bed. Appears comfortable. Does not complain of anything. ROS limited due to her dementia Review of Systems Review of Systems: All systems reviewed & are unremarkable except as noted in Subjective Physical Exam Physical Exam: PHYSICAL EXAM General Appearance: Elderly woman in NAD; alert and oriented to self only HEENT: Head is normocephalic/atraumatic; hard of hearing Neck: Supple; Trachea midline Cardiac: RRR Lungs: CTA bilaterally GI: normoactive BS x 4 quadrants without grimacing or reports of pain with palpation Extremities: Neg cyanosis or edema; toe nails thickened and yellowed Psychiatric: Pleasant Skin: Normal Color; Warm/Dry Results & Data Results & Data ([facility]) Vital Signs (Past 12 Hours) Vital Signs Temp Pulse Resp BP Pulse Ox 03/12/21 08:28 36.5 C 59 L 16 139/76 97 PG Care Time/CCT Total # of Minutes Spent Total Time Spent with Patient: Total time spent is greater than 50% in coordination of care (as documented) at patient's floor/unit and/or counseling patient: Coding Level of Care Code 59257 Subseq Hosp Care Lvl 2 Diagnoses Unable to care for self Z78.9 Humeral fracture S42.309A Alzheimer disease G30.9; F02.80 Type 2 diabetes mellitus E11.9 Diabetes mellitus complication status: without complication Diabetes mellitus retirement insulin use: without long chain dyeing machine operator use Severe protein-calorie malnutrition E43 Hypothyroid E03.9 Hypothyroidism type: unspecified Hypertension I10 Hypertension type: essential hypertension DVT prophylaxis Z29.9 (1) Type 2 diabetes mellitus Diabetes mellitus complication status: without complication Diabetes mellitus retirement insulin use: without long chain dyeing machine operator use Qualified Code(s): E11.9 - Type 2 diabetes mellitus without complications (2) Hypothyroid Hypothyroidism type: unspecified Qualified Code(s): E03.9 - Hypothyroidism, unspecified (3) Hypertension Hypertension type: essential hypertension Qualified Code(s): I10 - Essential (primary) hypertension
[2021-03-13] MEDS: HYOSCYAMINE SULFATE 0.125 MG TAB PO SCH ×4 (00:08→18:06)
[2021-03-13] MEDS: LEVOTHYROXINE SODIUM 112 MCG TABLET PO SCH (05:48)
[2021-03-13] MEDS: MEMANTINE HCL 10 MG TAB PO SCH (08:46)
[2021-03-13] MEDS: LORazepam 1 MG TAB PO SCH ×2 (08:47→20:10)
[2021-03-13] MEDS: DONEPEZIL HCL 10 MG TAB PO SCH (08:47)
[2021-03-13] MEDS: amLODIPine BESYLATE 5 MG TAB PO SCH (08:47)
[2021-03-13] MEDS: PANTOprazole 40 MG TAB PO SCH (08:48)
[2021-03-13] MEDS: DOCUSATE SODIUM 100 MG CAP PO SCH ×2 (08:48→20:10)
[2021-03-13] MEDS: MULTIVITAMIN TAB PO SCH (08:48)
[2021-03-13] MEDS: MELOXICAM 7.5 MG TAB PO SCH (08:49)
[2021-03-13] MEDS: PSYLLIUM 58.6% POWDER PACKET PO SCH (08:49)
--- NOTE | 2021-03-13 09:47 | Hospitalist Progress Note ---
Date of Service March 13, 2021 Assessment & Plan (1) Unable to care for self: Plan: - Home situation quickly deteriorated and does not have the adequate services to allow her to stay at home safely - Appears had services through [facility] but staffing issues has affected her services - Awaiting placement - appreciate case management assistance - Appears at baseline mentation - no acute changes (2) Humeral fracture: Plan: - Pt sustained a R humeral fracture in October - Discussed with daughter who is POA that she was unable to get followup as daughter was away for 3 months - Repeat Humeral XR - interval healing of humeral neck fracture with posttraumatic deformity present; narrowing of the glenohumeral joint - Overall does not seem to be bothered by it but also not very communicative - can use Tylenol PRN for any discomfort - Discussed with orthopedics to see if any restrictions at this point as she will be going to a facility - no restrictions need in place at this point given length of time since initial injury (3) Alzheimer disease: Plan: - Appears severe. Nothing appears acute - Continue Donepezil 10 mg daily and Memantine 20 mg daily; Haldol PRN (has not required any dosing) (4) Type 2 diabetes mellitus: Plan: - A1c 8.8 in December 2019; and currently down to 8.6 - Appears to be slowly improving without intervention and would suspect oral intake could gradually decrease placing her at risk for hypoglycemia and falls especially in the setting of advanced dementia - Average glucose at 200 - would not overcorrect (5) Severe protein-calorie malnutrition: Plan: - Clinical Indicators: Patient with BMI of 19 has documented 13.8% weight loss in past 4 months and requires feeding assistance per RD consult. - Risk Factor(s): Dementia, low BMI, unable to feed self - Treatment: provide feeding assistance, high protein supplements, I&O, weights (6) Hypothyroid: Plan: - Continue Levothyroxine 112 mcg daily (7) Hypertension: Plan: - Stable - Continue Amlodipine 5 mg daily - Will reassess need for continuation - has had two low pressures but predominantly acceptable (8) DVT prophylaxis: Plan: - Ambulation Plan: - Appreciate case management assistance with placement; unsafe to return home - Would be medically stable for discharge pending placement arrangement - has been difficult to place due to her vaccine status which has since changed effective 03/06/21 however may not be able to accept until 14 days post-vaccine. Multiple referrals placed and will await determination - Daughter mentioned if podiatry could come in to clip toenails - uncertain if any food and nutrition services supervisor able to but could consider this Admission and Anticipated Discharge Date Admission Date: February 14, 2021 Subjective Patient is resting comfortable in bed. Verbalizes no complaints. Asked if she remembers breaking her arm in the summer and she stated "probably did" but states no pain. She is not very conversant which seems to be baseline. Review of Systems Review of Systems: All systems reviewed & are unremarkable except as noted in Subjective Physical Exam Physical Exam: PHYSICAL EXAM General Appearance: Elderly woman in NAD; alert and oriented to self only; minimally conversant HEENT: Head is normocephalic/atraumatic; hard of hearing Neck: Supple; Trachea midline Cardiac: RRR Lungs: CTA bilaterally GI: normoactive BS x 4 quadrants without grimacing or reports of pain with palpation Extremities: Neg cyanosis or edema; toe nails thickened and yellowed Psychiatric: Pleasant Skin: Normal Color; Warm/Dry Results & Data Results & Data ([facility]) Vital Signs (Past 12 Hours) Vital Signs Temp Pulse Resp BP Pulse Ox 03/13/21 07:16 36.2 C L 72 12 124/73 98 03/12/21 23:02 36.6 C 65 18 121/70 98 PG Care Time/CCT Total # of Minutes Spent Total Time Spent with Patient: Total time spent is greater than 50% in coordination of care (as documented) at patient's floor/unit and/or counseling patient: Coding Level of Care Code 99787 Subseq Hosp Care Lvl 2 Diagnoses Unable to care for self Z78.9 Humeral fracture S42.309A Alzheimer disease G30.9; F02.80 Type 2 diabetes mellitus E11.9 Diabetes mellitus complication status: without complication 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 insulin use: without [facility] use Severe protein-calorie malnutrition E43 Hypothyroid E03.9 Hypothyroidism type: unspecified Hypertension I10 Hypertension type: essential hypertension DVT prophylaxis Z29.9 (1) Type 2 diabetes mellitus Diabetes mellitus complication status: without complication Diabetes mellitus [facility] insulin use: without [facility]cf use Qualified Code(s): E11.9 - Type 2 diabetes mellitus without complications (2) Hypothyroid Hypothyroidism type: unspecified Qualified Code(s): E03.9 - Hypothyroidism, unspecified (3) Hypertension Hypertension type: essential hypertension Qualified Code(s): I10 - Essential (primary) hypertension
[2021-03-14] MEDS: HYOSCYAMINE SULFATE 0.125 MG TAB PO SCH ×5 (00:51→23:51)
[2021-03-14] MEDS: LEVOTHYROXINE SODIUM 112 MCG TABLET PO SCH (05:44)
[2021-03-14] MEDS: LORazepam 1 MG TAB PO SCH ×2 (09:18→20:49)
[2021-03-14] MEDS: MELOXICAM 7.5 MG TAB PO SCH (09:18)
[2021-03-14] MEDS: MULTIVITAMIN TAB PO SCH (09:18)
[2021-03-14] MEDS: DONEPEZIL HCL 10 MG TAB PO SCH (09:18)
[2021-03-14] MEDS: PANTOprazole 40 MG TAB PO SCH (09:18)
[2021-03-14] MEDS: MEMANTINE HCL 10 MG TAB PO SCH (09:18)
[2021-03-14] MEDS: amLODIPine BESYLATE 5 MG TAB PO SCH (09:18)
--- NOTE | 2021-03-14 09:18 | Hospitalist Progress Note ---
Date of Service March 14, 2021 Assessment & Plan (1) Unable to care for self: Plan: - Home situation quickly deteriorated and does not have the adequate services to allow her to stay at home safely - Appears had services through [facility] but staffing issues has affected her services - Awaiting placement - appreciate case management assistance - Appears at baseline mentation - no acute changes (2) Humeral fracture: Plan: - Pt sustained a R humeral fracture in October - Discussed with daughter who is POA that she was unable to get followup as daughter was away for 3 months - Repeat Humeral XR - interval healing of humeral neck fracture with posttraumatic deformity present; narrowing of the glenohumeral joint - Overall does not seem to be bothered by it but also not very communicative - can use Tylenol PRN for any discomfort - Discussed with orthopedics to see if any restrictions at this point as she will be going to a facility - no restrictions need in place at this point given length of time since initial injury (3) Alzheimer disease: Plan: - Appears severe. Nothing appears acute - Continue Donepezil 10 mg daily and Memantine 20 mg daily; Haldol PRN (has not required any dosing) (4) Type 2 diabetes mellitus: Plan: - A1c 8.8 in December 2019; and currently down to 8.6 - Appears to be slowly improving without intervention and would suspect oral intake could gradually decrease placing her at risk for hypoglycemia and falls especially in the setting of advanced dementia - Average glucose at 200 - would not overcorrect (5) Severe protein-calorie malnutrition: Plan: - Clinical Indicators: Patient with BMI of 19 has documented 13.8% weight loss in past 4 months and requires feeding assistance per RD consult. - Risk Factor(s): Dementia, low BMI, unable to feed self - Treatment: provide feeding assistance, high protein supplements, I&O, weights (6) Hypothyroid: Plan: - Continue Levothyroxine 112 mcg daily (7) Hypertension: Plan: - Stable - Continue Amlodipine 5 mg daily - Will reassess need for continuation - has had two low pressures but predominantly acceptable (8) DVT prophylaxis: Plan: - Ambulation Plan: - Appreciate case management assistance with placement; unsafe to return home - Would be medically stable for discharge pending placement arrangement - has been difficult to place due to her vaccine status which has since changed effective 03/06/21 however may not be able to accept until 14 days post-vaccine. Multiple referrals placed and will await determination - Daughter mentioned if podiatry could come in to clip toenails - uncertain if any shop and alteration tailor able to but could consider this Admission and Anticipated Discharge Date Admission Date: February 14, 2021 Subjective Patient is resting comfortable in bed. Verbalizes no complaints. She is not very conversant which seems to be baseline. Review of Systems Review of Systems: Unobtainable due to cognitive status poor historian due to dementia, does not endorse any specific complaints, very hard of hearing Physical Exam Physical Exam: The patient appeared stated age no complaints Vital signs as documented. Head exam is normocephalic atraumatic Neck is without JVD, thyromegaly, or carotid bruits. Lungs are clear to auscultation, no focal loss of breath sounds Cardiac exam, Rhythm is regular.. No murmurs, rubs or gallops. Abdominal exam reveals normal bowel sounds, soft non tender, no masses Extremities are nonedematous and both pedal pulses are present Skin is without bruises or rashes Results & Data Results & Data ([facility]) Vital Signs (Past 12 Hours) Vital Signs Temp Pulse Resp BP Pulse Ox 03/14/21 09:16 67 123/75 03/14/21 07:41 97.2 F L 74 14 139/79 98 03/13/21 23:44 97.9 F 83 16 132/74 94 PG Care Time/CCT Total # of Minutes Spent Total Time Spent with Patient: Total time spent is greater than 50% in coordination of care (as documented) at patient's floor/unit and/or counseling patient: Coding Level of Care Code 89563 Subseq Hosp Care Lvl 1 Diagnoses Unable to care for self Z78.9 Humeral fracture S42.309A Alzheimer disease G30.9; F02.80 Type 2 diabetes mellitus E11.9 Diabetes mellitus complication status: without complication Diabetes mellitus longterm insulin use: without longterm use Severe protein-calorie malnutrition E43 Hypothyroid E03.9 Hypothyroidism type: unspecified Hypertension I10 Hypertension type: essential hypertension DVT prophylaxis Z29.9 (1) Type 2 diabetes mellitus Diabetes mellitus complication status: without complication Diabetes mellitus director of strategic programs insulin use: without longterm use Qualified Code(s): E11.9 - Type 2 diabetes mellitus without complications (2) Hypothyroid Hypothyroidism type: unspecified Qualified Code(s): E03.9 - Hypothyroidism, unspecified (3) Hypertension Hypertension type: essential hypertension Qualified Code(s): I10 - Essential (primary) hypertension
[2021-03-14] MEDS: PSYLLIUM 58.6% POWDER PACKET PO SCH (09:31)
[2021-03-14] MEDS: DOCUSATE SODIUM 100 MG CAP PO SCH ×2 (09:31→20:49)
[2021-03-15] MEDS: HYOSCYAMINE SULFATE 0.125 MG TAB PO SCH ×3 (05:29→18:00)
[2021-03-15] MEDS: LEVOTHYROXINE SODIUM 112 MCG TABLET PO SCH (05:30)
--- NOTE | 2021-03-15 08:04 | Hospitalist Progress Note ---
Date of Service March 15, 2021 Assessment & Plan (1) Unable to care for self: Plan: - Home situation quickly deteriorated and does not have the adequate services to allow her to stay at home safely - Appears had services through [facility] but staffing issues has affected her services - Awaiting placement - appreciate case management assistance was given [employer] Covid vaccine to facilitate placement - Appears at baseline mentation - no acute changes (2) Humeral fracture: Plan: - Pt sustained a R humeral fracture in October - Discussed with daughter who is POA that she was unable to get followup as daughter was away for 3 months - Repeat Humeral XR - interval healing of humeral neck fracture with posttraumatic deformity present; narrowing of the glenohumeral joint - Overall does not seem to be bothered by it but also not very communicative - can use Tylenol PRN for any discomfort - Discussed with orthopedics to see if any restrictions at this point as she will be going to a facility - no restrictions need in place at this point given length of time since initial injury (3) Alzheimer disease: Plan: - Appears severe. Nothing appears acute - Continue Donepezil 10 mg daily and Memantine 20 mg daily; Haldol PRN (has not required any dosing) (4) Type 2 diabetes mellitus: Plan: - A1c 8.8 in December 2019; and currently down to 8.6 - Appears to be slowly improving without intervention and would suspect oral intake could gradually decrease placing her at risk for hypoglycemia and falls especially in the setting of advanced dementia - Average glucose at 200 - would not overcorrect (5) Severe protein-calorie malnutrition: Plan: - Clinical Indicators: Patient with BMI of 19 has documented 13.8% weight loss in past 4 months and requires feeding assistance per RD consult. - Risk Factor(s): Dementia, low BMI, unable to feed self - Treatment: provide feeding assistance, high protein supplements, I&O, weights (6) Hypothyroid: Plan: - Continue Levothyroxine 112 mcg daily (7) Hypertension: Plan: - Stable - Continue Amlodipine 5 mg daily - Will reassess need for continuation - has had two low pressures but predominantly acceptable (8) DVT prophylaxis: Plan: - Ambulation Plan: - Appreciate case management assistance with placement; unsafe to return home - Would be medically stable for discharge pending placement arrangement - has been difficult to place due to her vaccine status which has since changed effective 03/06/21 however may not be able to accept until 14 days post-vaccine. Multiple referrals placed and will await determination - Daughter mentioned if podiatry could come in to clip toenails - uncertain if any black ash worker able to but could consider this Admission and Anticipated Discharge Date Admission Date: February 14, 2021 Subjective Patient is persistently resting she is hard of hearing she is a little with communication she appears in no distress placement continues to be an issue Review of Systems Review of Systems: poor historian due to dementia, does not endorse any specific complaints, very hard of hearing Physical Exam Physical Exam: The patient appeared stated age no complaints Vital signs as documented. Head exam is normocephalic atraumatic Neck is without JVD, thyromegaly, or carotid bruits. Lungs are clear to auscultation, no focal loss of breath sounds Cardiac exam, Rhythm is regular.. No murmurs, rubs or gallops. Abdominal exam reveals normal bowel sounds, soft non tender, no masses Extremities are nonedematous and both pedal pulses are present Skin is without bruises or rashes Results & Data Results & Data ([facility]) Vital Signs (Past 12 Hours) Vital Signs Temp Pulse Resp BP BP Pulse Ox 03/15/21 07:27 97.7 F 56 L 16 146/77 H 99 03/14/21 22:55 97.7 F 743 H 16 117/72 98 PG Care Time/CCT Total # of Minutes Spent Total Time Spent with Patient: Total time spent is greater than 50% in coordination of care (as documented) at patient's floor/unit and/or counseling patient: Coding Level of Care Code 49004 Subseq Hosp Care Lvl 1 Diagnoses Unable to care for self Z78.9 Humeral fracture S42.309A Alzheimer disease G30.9; F02.80 Type 2 diabetes mellitus E11.9 Diabetes mellitus complication status: without complication Diabetes mellitus senior care insulin use: without senior care use Severe protein-calorie malnutrition E43 Hypothyroid E03.9 Hypothyroidism type: unspecified Hypertension I10 Hypertension type: essential hypertension DVT prophylaxis Z29.9 (1) Type 2 diabetes mellitus Diabetes mellitus complication status: without complication Diabetes mellitus senior care insulin use: without senior care use Qualified Code(s): E11.9 - Type 2 diabetes mellitus without complications (2) Hypothyroid Hypothyroidism type: unspecified Qualified Code(s): E03.9 - Hypothyroidism, unspecified (3) Hypertension Hypertension type: essential hypertension Qualified Code(s): I10 - Essential (primary) hypertension
[2021-03-15] MEDS: DONEPEZIL HCL 10 MG TAB PO SCH (09:18)
[2021-03-15] MEDS: MULTIVITAMIN TAB PO SCH (09:18)
[2021-03-15] MEDS: MEMANTINE HCL 10 MG TAB PO SCH (09:18)
[2021-03-15] MEDS: DOCUSATE SODIUM 100 MG CAP PO SCH ×2 (09:18→21:02)
[2021-03-15] MEDS: amLODIPine BESYLATE 5 MG TAB PO SCH (09:18)
[2021-03-15] MEDS: MELOXICAM 7.5 MG TAB PO SCH (09:18)
[2021-03-15] MEDS: PSYLLIUM 58.6% POWDER PACKET PO SCH (09:19)
[2021-03-15] MEDS: PANTOprazole 40 MG TAB PO SCH (09:19)
[2021-03-15] MEDS: LORazepam 1 MG TAB PO SCH ×2 (09:20→21:02)
[2021-03-16] MEDS: HYOSCYAMINE SULFATE 0.125 MG TAB PO SCH ×4 (00:07→17:20)
[2021-03-16] MEDS: LEVOTHYROXINE SODIUM 112 MCG TABLET PO SCH (06:13)
[2021-03-16] MEDS: PANTOprazole 40 MG TAB PO SCH (07:42)
[2021-03-16] MEDS: LORazepam 1 MG TAB PO SCH ×2 (07:42→20:04)
[2021-03-16] MEDS: DONEPEZIL HCL 10 MG TAB PO SCH (07:42)
[2021-03-16] MEDS: MULTIVITAMIN TAB PO SCH (07:43)
[2021-03-16] MEDS: amLODIPine BESYLATE 5 MG TAB PO SCH (07:43)
[2021-03-16] MEDS: MELOXICAM 7.5 MG TAB PO SCH (07:43)
[2021-03-16] MEDS: MEMANTINE HCL 10 MG TAB PO SCH (07:43)
[2021-03-16] MEDS: DOCUSATE SODIUM 100 MG CAP PO SCH ×2 (07:45→20:03)
[2021-03-16] MEDS: PSYLLIUM 58.6% POWDER PACKET PO SCH (07:46)
--- NOTE | 2021-03-16 20:55 | Hospitalist Progress Note ---
Date of Service March 16, 2021 Assessment & Plan (1) Unable to care for self: Plan: - Home situation quickly deteriorated and does not have the adequate services to allow her to stay at home safely - Appears had services through [facility] but staffing issues has affected her services - Awaiting placement - appreciate case management assistance was given [employer] Covid vaccine to facilitate placement - Appears at baseline mentation - no acute changes (2) Humeral fracture: Plan: - Pt sustained a R humeral fracture in October - Discussed with daughter who is POA that she was unable to get followup as daughter was away for 3 months - Repeat Humeral XR - interval healing of humeral neck fracture with posttraumatic deformity present; narrowing of the glenohumeral joint - Overall does not seem to be bothered by it but also not very communicative - can use Tylenol PRN for any discomfort - Discussed with orthopedics to see if any restrictions at this point as she will be going to a facility - no restrictions need in place at this point given length of time since initial injury (3) Alzheimer disease: Plan: - Appears severe. Nothing appears acute - Continue Donepezil 10 mg daily and Memantine 20 mg daily; Haldol PRN (has not required any dosing) (4) Type 2 diabetes mellitus: Plan: - A1c 8.8 in December 2019; and currently down to 8.6 - Appears to be slowly improving without intervention and would suspect oral intake could gradually decrease placing her at risk for hypoglycemia and falls especially in the setting of advanced dementia - Average glucose at 200 - would not overcorrect (5) Severe protein-calorie malnutrition: Plan: - Clinical Indicators: Patient with BMI of 19 has documented 13.8% weight loss in past 4 months and requires feeding assistance per RD consult. - Risk Factor(s): Dementia, low BMI, unable to feed self - Treatment: provide feeding assistance, high protein supplements, I&O, weights (6) Hypothyroid: Plan: - Continue Levothyroxine 112 mcg daily (7) Hypertension: Plan: - Stable - Continue Amlodipine 5 mg daily - Will reassess need for continuation - has had two low pressures but predominantly acceptable (8) DVT prophylaxis: Plan: - Ambulation Plan: - Appreciate case management assistance with placement; unsafe to return home - Would be medically stable for discharge pending placement arrangement - has been difficult to place due to her vaccine status which has since changed effective 03/06/21 however may not be able to accept until 14 days post-vaccine. Multiple referrals placed and will await determination - Daughter mentioned if podiatry could come in to clip toenails - uncertain if any value engineer able to but could consider this Admission and Anticipated Discharge Date Admission Date: February 14, 2021 Subjective Patient is persistently resting she is hard of hearing she voices no complaints smiling Review of Systems Review of Systems: poor historian due to dementia, does not endorse any specific complaints, very hard of hearing Physical Exam Physical Exam: The patient appeared stated age no complaints Vital signs as documented. Head exam is normocephalic atraumatic Neck is without JVD, thyromegaly, or carotid bruits. Lungs are clear to auscultation, no focal loss of breath sounds Cardiac exam, Rhythm is regular.. No murmurs, rubs or gallops. Abdominal exam reveals normal bowel sounds, soft non tender, no masses Extremities are nonedematous and both pedal pulses are present Skin is without bruises or rashes Results & Data Results & Data ([facility]) Vital Signs (Past 12 Hours) Vital Signs Temp Pulse Resp BP Pulse Ox 03/16/21 15:52 98.2 F 78 18 113/69 96 PG Care Time/CCT Total # of Minutes Spent Total Time Spent with Patient: Total time spent is greater than 50% in coordination of care (as documented) at patient's floor/unit and/or counseling patient: Coding Level of Care Code 97145 Subseq Hosp Care Lvl 1 Diagnoses Unable to care for self Z78.9 Humeral fracture S42.309A Alzheimer disease G30.9; F02.80 Type 2 diabetes mellitus E11.9 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 mellitus remote computer terminal operator insulin use: without fpc use Diabetes mellitus complication status: without complication Severe protein-calorie malnutrition E43 Hypothyroid E03.9 Hypothyroidism type: unspecified Hypertension I10 Hypertension type: essential hypertension DVT prophylaxis Z29.9 (1) Type 2 diabetes mellitus Diabetes mellitus remote computer terminal operator insulin use: without remote computer terminal operator use Diabetes mellitus complication status: without complication Qualified Code(s): E11.9 - Type 2 diabetes mellitus without complications (2) Hypothyroid Hypothyroidism type: unspecified Qualified Code(s): E03.9 - Hypothyroidism, unspecified (3) Hypertension Hypertension type: essential hypertension Qualified Code(s): I10 - Essential (primary) hypertension
[2021-03-17] MEDS: HYOSCYAMINE SULFATE 0.125 MG TAB PO SCH ×5 (00:19→23:32)
[2021-03-17] MEDS: LEVOTHYROXINE SODIUM 112 MCG TABLET PO SCH (05:05)
[2021-03-17] MEDS: MEMANTINE HCL 10 MG TAB PO SCH (08:22)
[2021-03-17] MEDS: MELOXICAM 7.5 MG TAB PO SCH (08:22)
[2021-03-17] MEDS: amLODIPine BESYLATE 5 MG TAB PO SCH (08:22)
[2021-03-17] MEDS: DONEPEZIL HCL 10 MG TAB PO SCH (08:22)
[2021-03-17] MEDS: LORazepam 1 MG TAB PO SCH ×2 (08:22→20:14)
[2021-03-17] MEDS: DOCUSATE SODIUM 100 MG CAP PO SCH ×2 (08:22→20:14)
[2021-03-17] MEDS: MULTIVITAMIN TAB PO SCH (08:22)
[2021-03-17] MEDS: PSYLLIUM 58.6% POWDER PACKET PO SCH (08:22)
--- NOTE | 2021-03-17 19:43 | Hospitalist Progress Note ---
Date of Service March 17, 2021 Assessment & Plan (1) Unable to care for self: Plan: - Home situation quickly deteriorated and does not have the adequate services to allow her to stay at home safely - Appears had services through [facility] but staffing issues has affected her services - Awaiting placement - appreciate case management assistance was given [employer] Covid vaccine to facilitate placement - Appears at baseline mentation - no acute changes (2) Humeral fracture: Plan: - Pt sustained a R humeral fracture in October - Discussed with daughter who is POA that she was unable to get followup as daughter was away for 3 months - Repeat Humeral XR - interval healing of humeral neck fracture with posttraumatic deformity present; narrowing of the glenohumeral joint - Overall does not seem to be bothered by it but also not very communicative - can use Tylenol PRN for any discomfort - Discussed with orthopedics to see if any restrictions at this point as she will be going to a facility - no restrictions need in place at this point given length of time since initial injury (3) Alzheimer disease: Plan: - Appears severe. Nothing appears acute - Continue Donepezil 10 mg daily and Memantine 20 mg daily; Haldol PRN (has not required any dosing) (4) Type 2 diabetes mellitus: Plan: - A1c 8.8 in December 2019; and currently down to 8.6 - Appears to be slowly improving without intervention and would suspect oral intake could gradually decrease placing her at risk for hypoglycemia and falls especially in the setting of advanced dementia - Average glucose at 200 - would not overcorrect (5) Severe protein-calorie malnutrition: Plan: - Clinical Indicators: Patient with BMI of 19 has documented 13.8% weight loss in past 4 months and requires feeding assistance per RD consult. - Risk Factor(s): Dementia, low BMI, unable to feed self - Treatment: provide feeding assistance, high protein supplements, I&O, weights (6) Hypothyroid: Plan: - Continue Levothyroxine 112 mcg daily (7) Hypertension: Plan: - Stable - Continue Amlodipine 5 mg daily - Will reassess need for continuation - has had two low pressures but predominantly acceptable (8) DVT prophylaxis: Plan: - Ambulation Plan: - Appreciate case management assistance with placement; unsafe to return home - Would be medically stable for discharge pending placement arrangement - has been difficult to place due to her vaccine status which has since changed effective 03/06/21 however may not be able to accept until 14 days post-vaccine. Multiple referrals placed and will await determination - Daughter mentioned if podiatry could come in to clip toenails - uncertain if any codifier able to but could consider this Admission and Anticipated Discharge Date Admission Date: February 14, 2021 Subjective Patient is persistently resting she is hard of hearing she voices no complaints smiling Review of Systems Review of Systems: poor historian due to dementia, does not endorse any specific complaints, very hard of hearing Physical Exam Physical Exam: The patient appeared stated age no complaints Vital signs as documented. Head exam is normocephalic atraumatic Neck is without JVD, thyromegaly, or carotid bruits. Lungs are clear to auscultation, no focal loss of breath sounds Cardiac exam, Rhythm is regular.. No murmurs, rubs or gallops. Abdominal exam reveals normal bowel sounds, soft non tender, no masses Extremities are nonedematous and both pedal pulses are present Skin is without bruises or rashes Results & Data Results & Data ([facility]) Vital Signs (Past 12 Hours) Vital Signs Temp Pulse Resp BP Pulse Ox 03/17/21 15:30 98.1 F 83 16 102/55 L 96 PG Care Time/CCT Total # of Minutes Spent Total Time Spent with Patient: Total time spent is greater than 50% in coordination of care (as documented) at patient's floor/unit and/or counseling patient: Coding Level of Care Code 02631 Subseq Hosp Care Lvl 1 Diagnoses Unable to care for self Z78.9 Humeral fracture S42.309A Alzheimer disease G30.9; F02.80 Type 2 diabetes mellitus E11.9 Diabetes mellitus lobsterman insulin use: without lobsterman use Diabetes mellitus complication status: without complication Severe protein-calorie malnutrition E43 Hypothyroid E03.9 Hypothyroidism type: unspecified Hypertension I10 Hypertension type: essential hypertension DVT prophylaxis Z29.9 (1) Type 2 diabetes mellitus Diabetes mellitus group home insulin use: without lobsterman use Diabetes mellitus complication status: without complication Qualified Code(s): E11.9 - Type 2 diabetes mellitus without complications (2) Hypothyroid Hypothyroidism type: unspecified Qualified Code(s): E03.9 - Hypothyroidism, unspecified (3) Hypertension Hypertension type: essential hypertension Qualified Code(s): I10 - Essential (primary) hypertension
[2021-03-18] MEDS: LEVOTHYROXINE SODIUM 112 MCG TABLET PO SCH (05:17)
[2021-03-18] MEDS: HYOSCYAMINE SULFATE 0.125 MG TAB PO SCH ×4 (05:17→23:34)
[2021-03-18] MEDS: amLODIPine BESYLATE 5 MG TAB PO SCH (08:26)
[2021-03-18] MEDS: DONEPEZIL HCL 10 MG TAB PO SCH (08:26)
[2021-03-18] MEDS: MELOXICAM 7.5 MG TAB PO SCH (08:27)
[2021-03-18] MEDS: MEMANTINE HCL 10 MG TAB PO SCH (08:27)
[2021-03-18] MEDS: PSYLLIUM 58.6% POWDER PACKET PO SCH (08:28)
[2021-03-18] MEDS: MULTIVITAMIN TAB PO SCH (08:28)
[2021-03-18] MEDS: LORazepam 1 MG TAB PO SCH ×2 (08:30→20:24)
[2021-03-18] MEDS: DOCUSATE SODIUM 100 MG CAP PO SCH ×2 (09:19→20:27)
--- NOTE | 2021-03-18 19:34 | Hospitalist Progress Note ---
Date of Service March 18, 2021 Assessment & Plan (1) Unable to care for self: Plan: - Home situation quickly deteriorated and does not have the adequate services to allow her to stay at home safely - Appears had services through [facility] but staffing issues has affected her services - Awaiting placement - appreciate case management assistance was given [employer] Covid vaccine to facilitate placement - Appears at baseline mentation - no acute changes (2) Humeral fracture: Plan: - Pt sustained a R humeral fracture in October - Discussed with daughter who is POA that she was unable to get followup as daughter was away for 3 months - Repeat Humeral XR - interval healing of humeral neck fracture with posttraumatic deformity present; narrowing of the glenohumeral joint - Overall does not seem to be bothered by it but also not very communicative - can use Tylenol PRN for any discomfort - Discussed with orthopedics to see if any restrictions at this point as she will be going to a facility - no restrictions need in place at this point given length of time since initial injury (3) Alzheimer disease: Plan: - Appears severe. Nothing appears acute - Continue Donepezil 10 mg daily and Memantine 20 mg daily; Haldol PRN (has not required any dosing) (4) Type 2 diabetes mellitus: Plan: - A1c 8.8 in December 2019; and currently down to 8.6 - Appears to be slowly improving without intervention and would suspect oral intake could gradually decrease placing her at risk for hypoglycemia and falls especially in the setting of advanced dementia - Average glucose at 200 - would not overcorrect (5) Severe protein-calorie malnutrition: Plan: - Clinical Indicators: Patient with BMI of 19 has documented 13.8% weight loss in past 4 months and requires feeding assistance per RD consult. - Risk Factor(s): Dementia, low BMI, unable to feed self - Treatment: provide feeding assistance, high protein supplements, I&O, weights (6) Hypothyroid: Plan: - Continue Levothyroxine 112 mcg daily (7) Hypertension: Plan: - Stable - Continue Amlodipine 5 mg daily - Will reassess need for continuation - has had two low pressures but predominantly acceptable (8) DVT prophylaxis: Plan: - Ambulation Plan: - Appreciate case management assistance with placement; unsafe to return home - Would be medically stable for discharge pending placement arrangement - has been difficult to place due to her vaccine status which has since changed effective 03/06/21 however may not be able to accept until 14 days post-vaccine. Multiple referrals placed and will await determination - Daughter mentioned if podiatry could come in to clip toenails - uncertain if any clinical analyst able to but could consider this Admission and Anticipated Discharge Date Admission Date: February 14, 2021 Subjective Patient is persistently resting she is hard of hearing she voices no complaints smiling Review of Systems Review of Systems: poor historian due to dementia, does not endorse any specific complaints, very hard of hearing Physical Exam Physical Exam: The patient appeared stated age no complaints Vital signs as documented. Head exam is normocephalic atraumatic Neck is without JVD, thyromegaly, or carotid bruits. Lungs are clear to auscultation, no focal loss of breath sounds Cardiac exam, Rhythm is regular.. No murmurs, rubs or gallops. Abdominal exam reveals normal bowel sounds, soft non tender, no masses Extremities are nonedematous and both pedal pulses are present Skin is without bruises or rashes Results & Data Results & Data ([facility]) Vital Signs (Past 12 Hours) Vital Signs Temp Pulse Resp BP Pulse Ox 03/18/21 15:09 97.9 F 84 12 97/60 L 97 PG Care Time/CCT Total # of Minutes Spent Total Time Spent with Patient: Total time spent is greater than 50% in coordination of care (as documented) at patient's floor/unit and/or counseling patient: Coding Level of Care Code 27105 Subseq Hosp Care Lvl 1 Diagnoses Unable to care for self Z78.9 Humeral fracture S42.309A Alzheimer disease G30.9; F02.80 Type 2 diabetes mellitus E11.9 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 insulin use: without jail use Diabetes mellitus complication status: without complication Severe protein-calorie malnutrition E43 Hypothyroid E03.9 Hypothyroidism type: unspecified Hypertension I10 Hypertension type: essential hypertension DVT prophylaxis Z29.9 (1) Type 2 diabetes mellitus 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 insulin use: without jail use Diabetes mellitus complication status: without complication Qualified Code(s): E11.9 - Type 2 diabetes mellitus without complications (2) Hypothyroid Hypothyroidism type: unspecified Qualified Code(s): E03.9 - Hypothyroidism, unspecified (3) Hypertension Hypertension type: essential hypertension Qualified Code(s): I10 - Essential (primary) hypertension
[2021-03-19] MEDS: HYOSCYAMINE SULFATE 0.125 MG TAB PO SCH ×4 (06:03→23:22)
[2021-03-19] MEDS: LEVOTHYROXINE SODIUM 112 MCG TABLET PO SCH (06:03)
[2021-03-19] MEDS: amLODIPine BESYLATE 5 MG TAB PO SCH (08:28)
[2021-03-19] MEDS: MEMANTINE HCL 10 MG TAB PO SCH (08:28)
[2021-03-19] MEDS: PSYLLIUM 58.6% POWDER PACKET PO SCH (08:28)
[2021-03-19] MEDS: DONEPEZIL HCL 10 MG TAB PO SCH (08:29)
[2021-03-19] MEDS: MELOXICAM 7.5 MG TAB PO SCH (08:29)
[2021-03-19] MEDS: MULTIVITAMIN TAB PO SCH (08:30)
[2021-03-19] MEDS: LORazepam 1 MG TAB PO SCH ×2 (08:33→21:14)
[2021-03-19] MEDS: DOCUSATE SODIUM 100 MG CAP PO SCH ×2 (08:33→21:17)
--- NOTE | 2021-03-19 17:39 | Hospitalist Progress Note ---
Date of Service March 19, 2021 Assessment & Plan (1) Unable to care for self: Plan: - Home situation quickly deteriorated and does not have the adequate services to allow her to stay at home safely - Appears had services through [facility] but staffing issues has affected her services - Awaiting placement - appreciate case management assistance was given [employer] Covid vaccine to facilitate placement - Appears at baseline mentation - no acute changes (2) Humeral fracture: Plan: - Pt sustained a R humeral fracture in October - Discussed with daughter who is POA that she was unable to get followup as daughter was away for 3 months - Repeat Humeral XR - interval healing of humeral neck fracture with posttraumatic deformity present; narrowing of the glenohumeral joint - Overall does not seem to be bothered by it but also not very communicative - can use Tylenol PRN for any discomfort - Discussed with orthopedics to see if any restrictions at this point as she will be going to a facility - no restrictions need in place at this point given length of time since initial injury (3) Alzheimer disease: Plan: - Appears severe. Nothing appears acute - Continue Donepezil 10 mg daily and Memantine 20 mg daily; Haldol PRN (has not required any dosing) (4) Type 2 diabetes mellitus: Plan: - A1c 8.8 in December 2019; and currently down to 8.6 - Appears to be slowly improving without intervention and would suspect oral intake could gradually decrease placing her at risk for hypoglycemia and falls especially in the setting of advanced dementia - (5) Severe protein-calorie malnutrition: Plan: - Clinical Indicators: Patient with BMI of 19 has documented 13.8% weight loss in past 4 months and requires feeding assistance per RD consult. - Risk Factor(s): Dementia, low BMI, unable to feed self - Treatment: provide feeding assistance, high protein supplements, I&O, weights (6) Hypothyroid: Plan: - Continue Levothyroxine 112 mcg daily (7) Hypertension: Plan: - Stable - Continue Amlodipine 5 mg daily - Will reassess need for continuation - has had two low pressures but predominantly acceptable (8) DVT prophylaxis: Plan: - Ambulation Plan: - Appreciate case management assistance with placement; unsafe to return home - Would be medically stable for discharge pending placement arrangement - has been difficult to place due to her vaccine status which has since changed effective 03/06/21 however may not be able to accept until 14 days post-vaccine. Multiple referrals placed and will await determination - pt would need foot care and maybe podiatry referral after disposition Admission and Anticipated Discharge Date Admission Date: February 14, 2021 Subjective Patient is persistently resting she is hard of hearing she voices no complaints smiling no active issues so far this week 03/19/21 Review of Systems Review of Systems: poor historian due to dementia, does not endorse any spec [facility] complaints, very hard of hearing Physical Exam Physical Exam: The patient appeared stated age no complaints Vital signs as documented. Head exam is normocephalic atraumatic Neck is without JVD, thyromegaly, or carotid bruits. Lungs are clear to auscultation, no focal loss of breath sounds Cardiac exam, Rhythm is regular.. No murmurs, rubs or gallops. Abdominal exam reveals normal bowel sounds, soft non tender, no masses Extremities are nonedematous and both pedal pulses are present Skin is without bruises or rashes Results & Data Results & Data ([facility]) Vital Signs (Past 12 Hours) Vital Signs Temp Pulse Resp BP BP Pulse Ox 03/19/21 15:48 98.4 F 53 L 18 131/69 92 03/19/21 07:26 97.3 F L 61 16 152/70 H 98 PG Care Time/CCT Total # of Minutes Spent Total Time Spent with Patient: Total time spent is greater than 50% in coordination of care (as documented) at patient's floor/unit and/or counseling patient: Coding Level of Care Code 53812 Subseq Hosp Care Lvl 1 Diagnoses Unable to care for self Z78.9 Humeral fracture S42.309A Alzheimer disease G30.9; F02.80 Type 2 diabetes mellitus E11.9 Diabetes mellitus continuous churn buttermaker insulin use: without alf use Diabetes mellitus complication status: without complication Severe protein-calorie malnutrition E43 Hypothyroid E03.9 Hypothyroidism type: unspecified Hypertension I10 Hypertension type: essential hypertension DVT prophylaxis Z29.9 (1) Type 2 diabetes mellitus Diabetes mellitus continuous churn buttermaker insulin use: without continuous churn buttermaker use Diabetes mellitus complication status: without complication Qualified Code(s): E11.9 - Type 2 diabetes mellitus without complications (2) Hypothyroid Hypothyroidism type: unspecified Qualified Code(s): E03.9 - Hypothyroidism, unspecified (3) Hypertension Hypertension type: essential hypertension Qualified Code(s): I10 - Essential (primary) hypertension
[2021-03-20] MEDS: LEVOTHYROXINE SODIUM 112 MCG TABLET PO SCH (05:28)
[2021-03-20] MEDS: HYOSCYAMINE SULFATE 0.125 MG TAB PO SCH ×3 (05:28→17:44)
[2021-03-20] MEDS: MELOXICAM 7.5 MG TAB PO SCH (08:40)
[2021-03-20] MEDS: DONEPEZIL HCL 10 MG TAB PO SCH (08:40)
[2021-03-20] MEDS: amLODIPine BESYLATE 5 MG TAB PO SCH (08:40)
[2021-03-20] MEDS: MEMANTINE HCL 10 MG TAB PO SCH (08:40)
[2021-03-20] MEDS: MULTIVITAMIN TAB PO SCH (08:41)
[2021-03-20] MEDS: DOCUSATE SODIUM 100 MG CAP PO SCH ×2 (08:43→21:48)
[2021-03-20] MEDS: LORazepam 1 MG TAB PO SCH ×2 (08:43→21:50)
[2021-03-20] MEDS: PSYLLIUM 58.6% POWDER PACKET PO SCH (08:43)
--- NOTE | 2021-03-20 13:51 | Hospitalist Progress Note ---
Date of Service March 20, 2021 Assessment & Plan (1) Unable to care for self: Plan: - Home situation quickly deteriorated and does not have the adequate services to allow her to stay at home safely - Appears had services through [facility] but staffing issues has affected her services - Awaiting placement - appreciate case management assistance was given [employer] Covid vaccine to facilitate placement - Appears at baseline mentation - no acute changes (2) Humeral fracture: Plan: - Pt sustained a R humeral fracture in October - Discussed with daughter who is POA that she was unable to get followup as daughter was away for 3 months - Repeat Humeral XR - interval healing of humeral neck fracture with posttraumatic deformity present; narrowing of the glenohumeral joint - Overall does not seem to be bothered by it but also not very communicative - can use Tylenol PRN for any discomfort - Discussed with orthopedics to see if any restrictions at this point as she will be going to a facility - no restrictions need in place at this point given length of time since initial injury (3) Alzheimer disease: Plan: - Appears severe. Nothing appears acute - Continue Donepezil 10 mg daily and Memantine 20 mg daily; Haldol PRN (has not required any dosing) (4) Type 2 diabetes mellitus: Plan: - A1c 8.8 in December 2019; and currently down to 8.6 - Appears to be slowly improving without intervention and would suspect oral intake could gradually decrease placing her at risk for hypoglycemia and falls especially in the setting of advanced dementia - (5) Severe protein-calorie malnutrition: Plan: - Clinical Indicators: Patient with BMI of 19 has documented 13.8% weight loss in past 4 months and requires feeding assistance per RD consult. - Risk Factor(s): Dementia, low BMI, unable to feed self - Treatment: provide feeding assistance, high protein supplements, I&O, weights (6) Hypothyroid: Plan: - Continue Levothyroxine 112 mcg daily (7) Hypertension: Plan: - Stable - Continue Amlodipine 5 mg daily - Will reassess need for continuation - has had two low pressures but predominantly acceptable (8) DVT prophylaxis: Plan: - Ambulation Plan: - Appreciate case management assistance with placement; unsafe to return home - Would be medically stable for discharge pending placement arrangement - has been difficult to place due to her vaccine status which has since changed effective 03/06/21 however may not be able to accept until 14 days post-vaccine. Multiple referrals placed and will await determination - pt would need foot care and maybe podiatry referral after disposition Admission and Anticipated Discharge Date Admission Date: February 14, 2021 Subjective Patient is persistently resting she is hard of hearing she voices no complaints smiling no active issues so far this week 03/19/21 Review of Systems Review of Systems: poor historian due to dementia, does not endorse any spec [facility] complaints, very hard of hearing Physical Exam Physical Exam: The patient appeared stated age no complaints Vital signs as documented. Head exam is normocephalic atraumatic Neck is without JVD, thyromegaly, or carotid bruits. Lungs are clear to auscultation, no focal loss of breath sounds Cardiac exam, Rhythm is regular.. No murmurs, rubs or gallops. Abdominal exam reveals normal bowel sounds, soft non tender, no masses Extremities are nonedematous and both pedal pulses are present Skin is without bruises or rashes Results & Data Results & Data ([facility]) Vital Signs (Past 12 Hours) Vital Signs Temp Pulse Resp BP Pulse Ox 03/20/21 12:14 96 03/20/21 08:37 97.3 F L 89 18 140/85 PG Care Time/CCT Total # of Minutes Spent Total Time Spent with Patient: Total time spent is greater than 50% in coordination of care (as documented) at patient's floor/unit and/or counseling patient: Coding Level of Care Code 85532 Subseq Hosp Care Lvl 1 Diagnoses Unable to care for self Z78.9 Humeral fracture S42.309A Alzheimer disease G30.9; F02.80 Type 2 diabetes mellitus E11.9 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 insulin use: without buttermilk drier operator use Diabetes mellitus complication status: without complication Severe protein-calorie malnutrition E43 Hypothyroid E03.9 Hypothyroidism type: unspecified Hypertension I10 Hypertension type: essential hypertension DVT prophylaxis Z29.9 (1) Type 2 diabetes mellitus 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 insulin use: without detention use Diabetes mellitus complication status: without complication Qualified Code(s): E11.9 - Type 2 diabetes mellitus without complications (2) Hypothyroid Hypothyroidism type: unspecified Qualified Code(s): E03.9 - Hypothyroidism, unspecified (3) Hypertension Hypertension type: essential hypertension Qualified Code(s): I10 - Essential (primary) hypertension
[2021-03-21] MEDS: HYOSCYAMINE SULFATE 0.125 MG TAB PO SCH ×5 (00:57→17:51)
[2021-03-21] MEDS: LEVOTHYROXINE SODIUM 112 MCG TABLET PO SCH (05:42)
[2021-03-21] MEDS: MEMANTINE HCL 10 MG TAB PO SCH (09:30)
[2021-03-21] MEDS: MULTIVITAMIN TAB PO SCH (09:30)
[2021-03-21] MEDS: amLODIPine BESYLATE 5 MG TAB PO SCH (09:30)
[2021-03-21] MEDS: PSYLLIUM 58.6% POWDER PACKET PO SCH (09:30)
[2021-03-21] MEDS: MELOXICAM 7.5 MG TAB PO SCH (09:30)
[2021-03-21] MEDS: DONEPEZIL HCL 10 MG TAB PO SCH (09:30)
[2021-03-21] MEDS: LORazepam 1 MG TAB PO SCH ×2 (09:31→20:13)
[2021-03-21] MEDS: DOCUSATE SODIUM 100 MG CAP PO SCH ×2 (09:34→20:13)
--- NOTE | 2021-03-21 10:45 | Hospitalist Progress Note ---
Date of Service March 21, 2021 Assessment & Plan (1) Unable to care for self: Plan: - Home situation quickly deteriorated and does not have the adequate services to allow her to stay at home safely - Appears had services through [facility] but staffing issues has affected her services - Awaiting placement - appreciate case management assistance was given [employer] Covid vaccine to facilitate placement - Appears at baseline mentation - no acute changes (2) Humeral fracture: Plan: - Pt sustained a R humeral fracture in October - Discussed with daughter who is POA that she was unable to get followup as daughter was away for 3 months - Repeat Humeral XR - interval healing of humeral neck fracture with posttraumatic deformity present; narrowing of the glenohumeral joint - Overall does not seem to be bothered by it but also not very communicative - can use Tylenol PRN for any discomfort - Discussed with orthopedics to see if any restrictions at this point as she will be going to a facility - no restrictions need in place at this point given length of time since initial injury (3) Alzheimer disease: Plan: - Appears severe. Nothing appears acute - Continue Donepezil 10 mg daily and Memantine 20 mg daily; Haldol PRN (has not required any dosing) (4) Type 2 diabetes mellitus: Plan: - A1c 8.8 in December 2019; and currently down to 8.6 - Appears to be slowly improving without intervention and would suspect oral intake could gradually decrease placing her at risk for hypoglycemia and falls especially in the setting of advanced dementia - (5) Severe protein-calorie malnutrition: Plan: - Clinical Indicators: Patient with BMI of 19 has documented 13.8% weight loss in past 4 months and requires feeding assistance per RD consult. - Risk Factor(s): Dementia, low BMI, unable to feed self - Treatment: provide feeding assistance, high protein supplements, I&O, weights (6) Hypothyroid: Plan: - Continue Levothyroxine 112 mcg daily (7) Hypertension: Plan: - Stable - Continue Amlodipine 5 mg daily - Will reassess need for continuation - has had two low pressures but predominantly acceptable and this is continued (8) DVT prophylaxis: Plan: - Ambulation Plan: - Appreciate case management assistance with placement; unsafe to return home - Would be medically stable for discharge pending placement arrangement - has been difficult to place due to her vaccine status which has since changed effective 03/06/21 however may not be able to accept until 14 days post-vaccine. Multiple referrals placed and will await determination - pt would need foot care and maybe podiatry referral after disposition Per CM: the pt's discharge plan is to go to [facility] on Tuesday. per Sherron, the pt will need to be there as early as possible. the pt will require litter transport. the pt is medicare and does not require insurance authorization to transfer. Admission and Anticipated Discharge Date Admission Date: February 14, 2021 Subjective patient evaluated this morning doing well, no issues per RN overnight. Had BM this morning and tolerating diet. Plan for [facility] on Tuesday. Review of Systems Review of Systems: All systems reviewed & are unremarkable except as noted in HPI & below Physical Exam Physical Exam: The patient appeared stated age no complaints Vital signs as documented. Head exam is normocephalic atraumatic Neck is without JVD, thyromegaly, or carotid bruits. Lungs are clear to auscultation, no focal loss of breath sounds Cardiac exam, Rhythm is regular.. No murmurs, rubs or gallops. Abdominal exam reveals normal bowel sounds, soft non tender, no masses Extremities are nonedematous and both pedal pulses are present Skin is without bruises or rashes Psych- alert, oriented to person, not place/time Results & Data Results & Data ([facility]) Vital Signs (Past 12 Hours) Vital Signs Temp Pulse Resp BP BP Pulse Ox 03/21/21 09:45 65 18 154/77 H 03/20/21 22:46 36.7 C 88 15 151/64 H 96 PG Care Time/CCT Total # of Minutes Spent Total Time Spent with Patient: Total time spent is greater than 50% in coordination of care (as documented) at patient's floor/unit and/or counseling patient: Coding Level of Care Code 84616 Subseq Hosp Care Lvl 1 Diagnoses Unable to care for self Z78.9 Humeral fracture S42.309A Alzheimer disease G30.9; F02.80 Type 2 diabetes mellitus E11.9 Diabetes mellitus machine long goods helper insulin use: without machine long goods helper use Diabetes mellitus complication status: without complication Severe protein-calorie malnutrition E43 Hypothyroid E03.9 Hypothyroidism type: unspecified Hypertension I10 Hypertension type: essential hypertension DVT prophylaxis Z29.9 (1) Type 2 diabetes mellitus Diabetes mellitus halfway insulin use: without machine long goods helper use Diabetes mellitus complication status: without complication Qualified Code(s): E11.9 - Type 2 diabetes mellitus without complications (2) Hypothyroid Hypothyroidism type: unspecified Qualified Code(s): E03.9 - Hypothyroidism, unspecified (3) Hypertension Hypertension type: essential hypertension Qualified Code(s): I10 - Essential (primary) hypertension
[2021-03-22] MEDS: HYOSCYAMINE SULFATE 0.125 MG TAB PO SCH ×4 (00:43→17:26)
[2021-03-22] MEDS: LEVOTHYROXINE SODIUM 112 MCG TABLET PO SCH (05:30)
[2021-03-22] MEDS: amLODIPine BESYLATE 5 MG TAB PO SCH (07:35)
[2021-03-22] MEDS: MELOXICAM 7.5 MG TAB PO SCH (07:35)
[2021-03-22] MEDS: MEMANTINE HCL 10 MG TAB PO SCH (07:35)
[2021-03-22] MEDS: MULTIVITAMIN TAB PO SCH (07:35)
[2021-03-22] MEDS: DONEPEZIL HCL 10 MG TAB PO SCH (07:36)
[2021-03-22] MEDS: DOCUSATE SODIUM 100 MG CAP PO SCH ×2 (07:38→20:33)
[2021-03-22] MEDS: PSYLLIUM 58.6% POWDER PACKET PO SCH (07:38)
[2021-03-22] MEDS: LORazepam 1 MG TAB PO SCH ×2 (07:38→20:33)
--- NOTE | 2021-03-22 08:21 | Hospitalist Progress Note ---
Date of Service March 22, 2021 Assessment & Plan (1) Unable to care for self: Plan: - Home situation quickly deteriorated and does not have the adequate services to allow her to stay at home safely - Appears had services through [facility] but staffing issues has affected her services - Awaiting placement - appreciate case management assistance was given [employer] vaccine to facilitate placement - Appears at baseline mentation - no acute changes and stable for d/c when bed available --> Plans for [facility] tomorrow 03/23 (2) Humeral fracture: Plan: - Pt sustained a R humeral fracture in October - Discussed with daughter who is POA that she was unable to get followup as daughter was away for 3 months - Repeat Humeral XR - interval healing of humeral neck fracture with posttrauma tic deformity present; narrowing of the glenohumeral joint - Overall does not seem to be bothered by it but also not very communicative - can use Tylenol PRN for any discomfort - Discussed with orthopedics to see if any restrictions at this point as she will be going to a facility --> no restrictions need in place at this point given length of time since initial injury (3) Alzheimer disease: Plan: Appears severe. Nothing appears acute Continue Donepezil 10 mg daily and Memantine 20 mg daily; Haldol PRN (has not required any dosing) (4) Type 2 diabetes mellitus: Plan: - A1c 8.8 in December 2019; and currently down to 8.6 - Appears to be slowly improving without intervention and would suspect oral intake could gradually decrease placing her at risk for hypoglycemia and falls especially in the setting of advanced dementia - (5) Severe protein-calorie malnutrition: Plan: - Clinical Indicators: Patient with BMI of 19 has documented 13.8% weight loss in past 4 months and requires feeding assistance per RD consult. - Risk Factor(s): Dementia, low BMI, unable to feed self - Treatment: provide feeding assistance, high protein supplements, I&O, weights (6) Hypothyroid: Plan: - Continue Levothyroxine 112 mcg daily (7) Hypertension: Plan: - Stable - Continue Amlodipine 5 mg daily - Will reassess need for continuation - has had two low pressures but predominantly acceptable and this is continued (8) DVT prophylaxis: Plan: - Ambulation Plan: - Appreciate case management assistance with placement; unsafe to return home - Would be medically stable for discharge pending placement arrangement - has been difficult to place due to her vaccine status which has since changed effective 03/06/21 however may not be able to accept until 14 days post-vaccine. Multiple referrals placed and will await determination - pt would need foot care and maybe podiatry referral after disposition Per CM: the pt's discharge plan is to go to [facility] on Tuesday. per Sherron, the pt will need to be there as early as possible. the pt will require litter transport. the pt is medicare and does not require insurance authorization to transfer. Admission and Anticipated Discharge Date Admission Date: February 14, 2021 Supervising Physician Co-Signing Physician Notes reviewed and agree mere Briggs PAC as above Subjective Patient with 3BM yesterday. Had attempted to get up out of bed herself earlier (no fall), but up to bedside commode and cleaned up this morning with aides. Additional BM after toileting and per RN she just has to be frequently toileted and will have BM. No new issues/concerns. Plans for [facility] tomorrow. Physical Exam Physical Exam: WN, WD, no acute distress Vital signs as documented. Head exam is normocephalic atraumatic Neck is without JVD, thyromegaly, or carotid bruits. Lungs are clear to auscultation, no focal loss of breath sounds Cardiac exam, Rhythm is regular.. No murmurs, rubs or gallops. Abdominal exam reveals normal bowel sounds, soft non tender, no masses Extremities are nonedematous and both pedal pulses are present Skin is without bruises or rashes Psych- alert, oriented to person, not place/time Results & Data Results & Data ([facility]) Vital Signs (Past 12 Hours) Vital Signs Temp Pulse Resp BP Pulse Ox 03/21/21 22:49 36.7 C 69 15 121/71 96 PG Care Time/CCT Total # of Minutes Spent Total Time Spent with Patient: Total time spent is greater than 50% in coordination of care (as documented) at patient's floor/unit and/or counseling patient: Coding Level of Care Code 76238 Subseq Hosp Care Lvl 1 Diagnoses Unable to care for self Z78.9 Humeral fracture S42.309A Alzheimer disease G30.9; F02.80 Type 2 diabetes mellitus E11.9 Diabetes mellitus complication status: without complication Diabetes mellitus correction insulin use: without inspector rough castings use Severe protein-calorie malnutrition E43 Hypothyroid E03.9 Hypothyroidism type: unspecified Hypertension I10 Hypertension type: essential hypertension DVT prophylaxis Z29.9 (1) Type 2 diabetes mellitus Diabetes mellitus complication status: without complication Diabetes mellitus correction insulin use: without inspector rough castings use Qualified Code(s): E11.9 - Type 2 diabetes mellitus without complications (2) Hypothyroid Hypothyroidism type: unspecified Qualified Code(s): E03.9 - Hypothyroidism, unspecified (3) Hypertension Hypertension type: essential hypertension Qualified Code(s): I10 - Essential (primary) hypertension
[2021-03-23] MEDS: HYOSCYAMINE SULFATE 0.125 MG TAB PO SCH ×4 (00:27→17:45)
[2021-03-23] MEDS: LEVOTHYROXINE SODIUM 112 MCG TABLET PO SCH (05:51)
[2021-03-23] MEDS: MEMANTINE HCL 10 MG TAB PO SCH (08:22)
[2021-03-23] MEDS: DONEPEZIL HCL 10 MG TAB PO SCH (08:22)
[2021-03-23] MEDS: MULTIVITAMIN TAB PO SCH (08:22)
[2021-03-23] MEDS: amLODIPine BESYLATE 5 MG TAB PO SCH (08:22)
[2021-03-23] MEDS: MELOXICAM 7.5 MG TAB PO SCH (08:22)
[2021-03-23] MEDS: PSYLLIUM 58.6% POWDER PACKET PO SCH (08:23)
[2021-03-23] MEDS: DOCUSATE SODIUM 100 MG CAP PO SCH ×2 (08:23→21:10)
[2021-03-23] MEDS: LORazepam 1 MG TAB PO SCH ×2 (08:26→21:10)
--- NOTE | 2021-03-23 14:57 | Hospitalist Progress Note ---
Date of Service March 23, 2021 Assessment & Plan (1) Unable to care for self: Plan: - Daughter (POA) was water fabricator operator and recently incarcerated. Ta helping with care in addition to caretakers but given lack of staff, not enough staff available to allow her to stay at home safely - Awaiting placement - appreciate case management assistance was given [employer] Covid vaccine to facilitate placement - Appears at baseline mentation - no acute changes and stable for d/c when bed available --> Plans for [facility] when bed available (2) Humeral fracture: Plan: - Pt sustained a R humeral fracture in October - Discussed with daughter who is POA that she was unable to get followup as daughter was away for 3 months - Repeat Humeral XR - interval healing of humeral neck fracture with posttraumatic deformity present; narrowing of the glenohumeral joint - Overall does not seem to be bothered by it but also not very communicative - can use Tylenol PRN for any discomfort - Discussed with orthopedics to see if any restrictions at this point as she will be going to a facility --> no restrictions need in place at this point given length of time since initial injury (3) Alzheimer disease: Plan: Appears severe. Nothing appears acute Continue Donepezil 10 mg daily and Memantine 20 mg daily; Haldol PRN (has not required any dosing) (4) Type 2 diabetes mellitus: Plan: - A1c 8.8 in December 2019; and currently down to 8.6 - BS >300 upon arrival - would avoid insulin given inconsistent oral intake d/t dementia but should be started on something. Will initiate Metformin along with CC diet. (5) Severe protein-calorie malnutrition: Plan: - Clinical Indicators: Patient with BMI of 19 has documented 13.8% weight loss in past 4 months and requires feeding assistance per RD consult. - Risk Factor(s): Dementia, low BMI, unable to feed self - Treatment: provide feeding assistance, high protein supplements, I&O, weights (6) Hypothyroid: Plan: - Continue Levothyroxine 112 mcg daily (7) Hypertension: Plan: - Stable - Continue Amlodipine 5 mg daily - BP 151/71 today (but this is prior to her routine meds and acceptable given age) (8) DVT prophylaxis: Plan: - Ambulation. Plan: - Appreciate case management assistance with placement; unsafe to return home - Would be medically stable for discharge pending placement arrangement - has been difficult to place due to her vaccine status which has since changed effective 03/06/21 however may not be able to accept until 14 days post-vaccine. Multiple referrals placed and will await determination - pt would need foot care and maybe podiatry referral after disposition Per CM: the pt's discharge plan is to go to [facility] on Tuesday. per Sherron, the pt will need to be there as early as possible. the pt will require litter transport. the pt is medicare and does not require insurance authorization to transfer. Admission and Anticipated Discharge Date Admission Date: February 14, 2021 Subjective Patient seen on daily rounds today. Demented and unable to vocalize any specific c/c. Nursing voices no c/c. Review of Systems Review of Systems: unobtainable Physical Exam Physical Exam: General: Resting comfortably in her hospital bed. Awake. Pleasant.. NAD. HEENT: Head is AT/NC buccal mucosa is moist and pink Neck: No JVD. Negative hepatojugular reflex Cardiac: RRR without M/G/R Lungs: CTA without W/R/R Abdomen: Normoactive X4. Soft and nontender in all quadrants. Extremities: No peripheral clubbing cyanosis or edema Neuro: Awake. Oriented to self. Not oriented to place, time or situation. Cranial nerves II through XII are grossly intact no focal neuro deficits Skin: No obvious skin lesions or rashes Psych: Appropriate affect pleasant and cooperative Results & Data Results & Data ([facility]) Vital Signs (Past 12 Hours) Vital Signs Pulse Resp BP 03/23/21 07:05 75 18 151/71 H Laboratory Results no lab data PG Care Time/CCT Total # of Minutes Spent Total Time Spent with Patient: Total time spent is greater than 50% in coordination of care (as documented) at patient's floor/unit and/or counseling patient: Coding Level of Care Code 50459 Subseq Hosp Care Lvl 1 Diagnoses Unable to care for self Z78.9 Humeral fracture S42.309A Alzheimer disease G30.9; F02.80 Type 2 diabetes mellitus E11.9 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 use: without computer terminal operator use Diabetes mellitus complication status: without complication Severe protein-calorie malnutrition E43 Hypothyroid E03.9 Hypothyroidism type: unspecified Hypertension I10 Hypertension type: essential hypertension DVT prophylaxis Z29.9 (1) Type 2 diabetes mellitus 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
[2021-03-23] MEDS: metFORMIN HCL 500 MG TAB PO SCH (17:44)
[2021-03-24] MEDS: HYOSCYAMINE SULFATE 0.125 MG TAB PO SCH ×3 (00:18→12:34)
[2021-03-24] MEDS: LEVOTHYROXINE SODIUM 112 MCG TABLET PO SCH (05:33)
[2021-03-24] MEDS: MEMANTINE HCL 10 MG TAB PO SCH (08:24)
[2021-03-24] MEDS: amLODIPine BESYLATE 5 MG TAB PO SCH (08:24)
[2021-03-24] MEDS: MULTIVITAMIN TAB PO SCH (08:24)
[2021-03-24] MEDS: MELOXICAM 7.5 MG TAB PO SCH (08:24)
[2021-03-24] MEDS: DONEPEZIL HCL 10 MG TAB PO SCH (08:24)
[2021-03-24] MEDS: metFORMIN HCL 500 MG TAB PO SCH (08:24)
[2021-03-24] MEDS: DOCUSATE SODIUM 100 MG CAP PO SCH ×2 (08:25→08:33)
[2021-03-24] MEDS: LORazepam 1 MG TAB PO SCH (08:25)
[2021-03-24] MEDS: PSYLLIUM 58.6% POWDER PACKET PO SCH (09:18)
--- NOTE | 2021-03-24 13:12 | Discharge Summary ---
Date of Service March 24, 2021 Admission HPI Per Admitting Provider No HPI review of systems obtainable from patient. Tried to call familyno answerwent to voicemail. It seems this has been the same with everyone. Chart reviewed to gather background. Admission Exam Per Admitting Provider Chief Complaint: not safe at home Primary Care Provider: Jonathan Metzger MD No HPI review of systems obtainable from patient. Tried to call familyno answerwent to voicemail. It seems this has been the same with everyone. Chart reviewed to gather background. Principal Diagnosis 1. Advanced Dementia 2. Unable to care for self Discharge Exam General: Resting comfortably in her hospital bed. Awake. Pleasant.. NAD. HEENT: Head is AT/NC buccal mucosa is moist and pink Neck: No JVD. Negative hepatojugular reflex Cardiac: RRR without M/G/R Lungs: CTA without W/R/R Abdomen: Normoactive X4. Soft and nontender in all quadrants. Extremities: No peripheral clubbing cyanosis or edema Neuro: Awake. Oriented to self. Not oriented to place, time or situation. Cranial nerves II through XII are grossly intact no focal neuro deficits Skin: No obvious skin lesions or rashes Psych: Appropriate affect pleasant and cooperative Discharge Data Allergies Allergy/AdvReac Type Severity Reaction Status Date / Time lisinopril Allergy Intermediate COUGH Verified 02/14/21 08:32 atorvastatin Allergy Unknown MED LIST Verified 02/14/21 08:32 simvastatin Allergy Unknown MED LIST Verified 02/14/21 08:32 Penicillins AdvReac Mild Verified 02/14/21 08:32 Consultations 02/14/21 09:19 ED Decision to Admit Stat Procedures Performed CXR: FINDINGS: Single frontal view of the chest demonstrates the cardiomediastinal silhouette to be within normal limits. The lungs are clear of alveolar opacities. There is no evidence for pleural effusion. There is no evidence for vascular congestion. There is no acute osseous pathology. IMPRESSION: No acute cardiopulmonary disease. xray of the right humerus: Bones: Compared to the previous examination, there has been interval healing of previously identified humeral neck fracture. Residual posttraumatic deformities present. There is no evidence for an acute fracture or dislocation. There is no lytic or blastic lesion. Joints: There is evidence for narrowing of the glenohumeral joint. The bones are in anatomic alignment. Soft tissues: There is no focal soft tissue abnormality. There is no radiopaque foreign body. IMPRESSION: Interval healing of previously identified humeral neck fracture with posttraumatic deformity present. Narrowing of the glenohumeral joint. Hospital Course (1) Unable to care for self: - Daughter (AMARILYS) was caving guide and recently incarcerated. Ta helping with care in addition to caretakers but given lack of staff (on account of Covid/pandemic), not enough staff available to allow her to stay at home safely - was given [employer] Covid vaccine to facilitate placement - Appears at baseline mentation - has remained in house for 38 days-- medically stable throughout that time, just awaiting placement (whish was difficult given lack of staff/beds given covid pandemic) (2) Humeral fracture: - Pt sustained a R humeral fracture in October - Discussed with daughter who is AMARILYS that she was unable to get followup as daughter was away for 3 months - Repeat Humeral XR - interval healing of humeral neck fracture with posttraumatic deformity present; narrowing of the glenohumeral joint - Overall does not seem to be bothered by it but also not very communicative - can use Tylenol PRN for any discomfort - Discussed with orthopedics to see if any restrictions at this point as she will be going to a facility --> no restrictions need in place at this point given length of time since initial injury (3) Alzheimer disease: Appears severe. Nothing appears acute Continue Donepezil 10 mg daily and Memantine 20 mg daily; Haldol PRN (has not required any dosing) (4) Type 2 diabetes mellitus: - A1c 8.8 in December 2019; and currently 8.6 - BS >300 upon arrival - would avoid insulin given inconsistent oral intake d/t dementia but has been started on Metformin along with CC diet--> this can be uptitrated per house Physician as patient tolerating - would advise FU BMP in 1 month to further assess renal function and repeat BMP and A1C in 3 months (5) Severe protein-calorie malnutrition: - Clinical Indicators: Patient with BMI of 19 has documented 13.8% weight loss in past 4 months and requires feeding assistance per RD consult. - Risk Factor(s): Dementia, low BMI, unable to feed self - Treatment: provide feeding assistance, high protein supplements, I&O, weights (6) Hypothyroid: - Continue Levothyroxine 112 mcg daily (7) Hypertension: - Stable - Continue Amlodipine 5 mg daily - BP 151/71 today (but this is prior to her routine meds and acceptable given age) (8) DVT prophylaxis: - Ambulation. - Appreciate case management assistance with placement; unsafe to return home - is medically stable for discharge - has been difficult to place due to her vaccine status which has since changed effective 03/06/21 and lack of staff/bed availability - recommend patient be seen by House Physician within 24-48 hours Total Time Total Time Spent Total Time Spent (In Minutes): 40 including time spent with patient, D/W case mgmt and attending provider and preparation of documentation Discharge Plan Discharge Items Patient Disposition: Transfer Shelter Fac Reason For Visit: UNSAFE HOME ENVIRONMENT, PROGRESSIVE DEMENTIA Discharge Diagnosis: 1. Advanced Dementia- unable to care for self 2. DM Activity: As commented below Activity Comment: as tolerated. Patient fall risk Non-emergency contact: Primary Care Provider Call non-emergency contact if: you have any medication questions Follow-up/Referrals: Jonathan Metzger MD [Primary Care Provider] - Diet: Carb Consistent or DM2 Addtl Attending Provider Instructions: - Patient was brought to the hospital as she is unable to care for herself and no longer has the support available at home - She has advanced dementia - In addition, found to have uncontrolled Diabetes (for which she was started on Metformin) - Patient is a fall risk - She has been vaccinated for Covid (received J&J vaccine) - Recommend patient be seen by House Physician within 24-48 hours - advise FU labs in 1&3 months (given addition of Metformin). - Can increase Metformin to 1000mg BID (at discretion of House Physician-- as patient tolerating) - Return to the Ed for new or worsening symptoms - consider transition to hospice for advanced dementia with progressive disease Pending Studies at Discharge: No Stand-Alone Forms: My [employer] Skilled Items Patient informed of condition?: Yes DNR: Yes Discharge Level of Care: Skilled Communicable Disease: No Discharge Prognosis: Stable Lines: None Urinary Catheter: No Medications and DC Order Prescriptions: New metformin 500 mg Tablet 500 mg PO BIDM Qty: 60 RF: 0 Continued amlodipine 5 mg tablet 5 mg PO DAILY Qty: 90 RF: 3 donepezil 10 mg tablet 10 mg PO DAILY Qty: 30 RF: 5 memantine [Namenda] 10 mg tablet 20 mg PO DAILY Qty: 180 RF: 1 docusate sodium [Colace] 100 mg capsule 100 mg PO BID RF: 0 multivitamin Tablet 1 tab PO DAILY Qty: 30 RF: 0 levothyroxine 112 mcg tablet 112 mcg PO DAILY RF: 0 psyllium husk [Metamucil] 0.52 gram capsule 0.52 g PO DAILY Qty: 30 RF: 0 esomeprazole magnesium 20 mg capsule,delayed release(DR/EC) 20 mg PO DAILY RF: 0 hyoscyamine sulfate [Levsin/SL] 0.125 mg tablet, sublingual 0.125 mg PO Q6H RF: 0 meloxicam [Mobic] 15 mg tablet 15 mg PO DAILY RF: 0 haloperidol 5 mg tablet 2.5 mg PO Q4H PRN (Reason: agitation) Qty: 0 RF: 0 Changed acetaminophen 500 mg tablet 1,000 mg PO BID PRN (Reason: Padron/fever/pain) Qty: 0 RF: 0 Discontinued (DME) Hospital Bed Misc See Rx Instructions .ROUTE .MEDSUPPLY Qty: 1 RF: 0 lorazepam 1 mg tablet 1 mg PO BID Qty: 60 RF: 0 Discharge Orders: Discharge Order (Routine); Ordered 03/24/21 Ordered By: Suzi Gutierrez Admission Data Admit Date/Time: 02/14/21 09:57 Attending Provider: Magdy Lagunas Admit Provider: Dajuan Flowers Primary Care Provider: Jonathan Metzger Other Providers: [facility] ; [facility], ; [facility] ; [facility] ; Magdy Lagunas Other Interventions: Discharge Summary Assessment (RN) Last Done: 03/24/21 11:36 Supervising Physician Co-Signing Physician Notes I supervised Suzi Gutierrez PA-C on the care of this patient. I interviewed and examined the patient independently of her. The plan is as written in her note except for any following changes/exceptions: None Resting comfortably when I saw her. Denied pain, shortness of breath, other concerns. Ready for discharge. Coding Level of Care Code D/C DAY MANAGEMENT >30 MINS Diagnoses Unable to care for self Z78.9 Humeral fracture S42.309A Alzheimer disease G30.9; F02.80 Type 2 diabetes mellitus E11.9 Diabetes mellitus complication status: without complication Diabetes mellitus rn long term care insulin use: without correction use Severe protein-calorie malnutrition E43 Hypothyroid E03.9 Hypothyroidism type: unspecified Hypertension I10 Hypertension type: essential hypertension DVT prophylaxis Z29.9
== END 2021-03-24 14:30 | DRG 640 ==
LOC: ED 06:28 → EDINP 09:57 → SUATTDRO 09:57 → 3N 16:01 → EDINP 03-05 22:18